=== PATIENT | male | born 1955 | race Caucasian/White ===

== ENCOUNTER 2016-11-18 06:29 | Day surgery (SDC) | payer OTHER ==
[2016-11-11 09:19] VITALS: BMI 37.7
[2016-11-18] MEDS ORDERED: ALPRAZolam 0.25 MG TAB PO PRN (06:30)
[2016-11-18] MEDS ORDERED: NITROGLYCERIN SL TABS 0.4 MG TAB SUBLINGUAL PRN (06:30)
[2016-11-18] MEDS ORDERED: SODIUM CHLORIDE 0.9% 1,000 ML in EMPTY BAG 1 BAG IV ONE (06:30)
[2016-11-18] MEDS ORDERED: ALPRAZolam 0.5 MG TAB PO PRN (06:30)
[2016-11-18] MEDS ORDERED: ASPIRIN 325 MG TAB PO STA (06:30)
[2016-11-18] MEDS ORDERED: ATORVASTATIN 80 MG TAB PO STA (06:30)
[2016-11-18 06:59] LABS: Basophils # (A) 0.1 k/uL (0-0.2); Basophils % (A) 1 %; CH 31.6; CHCM 35.5; Eosinophils # (A) 0.3 k/uL (0-0.7); Eosinophils % (A) 3 %; HCT 45.2 % (39.0-53.0); HDW 2.83; Luc # (Auto) 0.19; Luc % (Auto) 2; Lymphocytes # (A) 2.4 k/uL (1.0-4.8); Lymphocytes % (A) 22 %; MCH 31.7 pg (25.0-35.0); MCHC 35.4 g/dL (31.0-37.0); MCV 89.6 fL (80.0-100.0); Mean Platelet Volume 8.7; Monocytes # (A) 0.5 k/uL (0-1.0); Monocytes % (A) 5 %; Neutrophils # (A) 7.3 k/uL (1.3-7.7); Neutrophils % (A) 67 %; RBC 5.04 m/uL (4.30-5.90); RDW 13.5 % (11.5-15.5); WBC 10.9 k/uL (3.8-10.6)
[2016-11-18 07:10] LABS: Anion Gap 13 mmol/L; Blood Urea Nitrogen 15 mg/dL (9-20); Calcium 9.6 mg/dL (8.4-10.2); Carbon Dioxide 26 mmol/L (22-30); Chloride 103 mmol/L (98-107); Glucose 110 mg/dL (74-99); Non-African American GFR(MDRD) >60 (>60 ml/min/1.73 sqM); Potassium 4.3 mmol/L (3.5-5.1); Sodium 142 mmol/L (137-145)
[2016-11-18 07:17] VITALS: RESP 16; TEMP 98.4
[2016-11-18] MEDS ORDERED: MIDAZOLAM 2 MG/2 ML VIAL IV ONE (07:56)
[2016-11-18] MEDS ORDERED: LIDOCAINE 2% INJ 20 MG/ML SQ ONE (07:58)
[2016-11-18] MEDS ORDERED: IOHEXOL 350 MG/ML 125ML BOTTLE INJ ONE (08:15)
[2016-11-18] MEDS ORDERED: RX INFO: IV CONTRAST WAS GIVEN 1 EACH MISC MISCELLANE PRN (08:29)
[2016-11-18] MEDS ORDERED: SODIUM CHLORIDE 0.9% 1,000 ML IV SCH (08:30)
[2016-11-18] MEDS ORDERED: HYDROcodone/APAP 7.5-325MG 1 EACH TAB PO ONE (08:55)
[2016-11-18 13:50] VITALS: BP 124/79; PULSE 78
--- NOTE | 2016-11-19 05:57 | CC ---
DATE OF SERVICE: 11/18/2016 PERFORMING PHYSICIAN: Janak Hdz MD, bi data modeler. PROCEDURE PERFORMED: 1. Selective right and left coronary angiogram. 2. Left heart catheterization. 3. Left ventriculography. INDICATIONS: This is a pleasant 61-year-old gentleman who was experiencing chest discomfort. He was seen by Dr. Webster who did a myocardial perfusion imaging stress test and that showed inferior ischemia. He was brought today to undergo a heart catheterization. APPROACH: Right common femoral artery. COMPLICATIONS: None. LEVEL OF SEDATION: Moderate with sedation length of 30 minutes. PROCEDURE DESCRIPTION: After obtaining an informed consent, the patient was brought to the cardiac mine laborer. The right common femoral artery was cannulated using micropuncture technique. The micropuncture wire passed easily then I placed a 6 Polish sheath in the right common femoral artery. After that I did selective right and left coronary angiogram using JR4 and JL4 catheters. After that, I did left heart catheterization and subsequently left ventriculography using 6 Polish pigtail catheter. The procedure was completed without any complication. SELECTIVE CORONARY ANGIOGRAM: 1. The right coronary artery is a large caliber vessel and it is a dominant vessel. It is 100% occluded in the proximal portion and fills by collateral from the left coronary system. 2. The left main is calcified with a lesion in the mid shaft of the left main, appeared to be in the range of 60% to 70%. The left main bifurcates into left circumflex and left anterior descending artery. 3. The left circumflex seems to be 100% occluded in the proximal portion just after the bifurcation of the first obtuse marginal branch. The left circumflex fills from collateral from the right as well as the left coronary system. 4. The left anterior descending artery, the proximal LAD appeared to be have mild disease in the range of 30%. In the proximal portion, it gives rise into the first diagonal branch, which appeared to have mild disease only. The mid LAD and distal LAD appeared to have mild disease only. HEMODYNAMICS: The left ventricular end-diastolic pressure was 6 mmHg and no gradient was identified across the aortic valve. Left ventriculography was performed in the POON projection and using power injection and the left ventricular systolic function appeared to be normal with EF about 50%. CONCLUSION: 1. 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 It is a dominant right coronary artery. 2. Severe disease involving the left main coronary artery. 3. Chronic total occlusion of the proximal left circumflex, which fills by left as well as right collaterals. 4. Mild disease involving the left anterior descending artery. 5. Low normal left ventricular systolic function with an ejection fraction of 50%. POST PROCEDURE MANAGEMENT: 1. I will discuss with the patient the option between medical versus surgical revascularization. 2. Follow up with the patient. GRACIELA
== END 2016-11-18 14:35 | disposition home or self-care (01) ==
LOC: CATHCVL 06:29
PROVIDERS: ATTEND Internal Medicine Interventional Cardiology
DX: I25.82 Chronic total occlusion of coronary artery (principal); I25.10 Atherosclerotic heart disease of native coronary artery without angina pectoris; R94.39 Abnormal result of other cardiovascular function study; I10 Essential (primary) hypertension; E78.5 Hyperlipidemia, unspecified; I25.2 Old myocardial infarction; Z79.82 Long term (current) use of aspirin; Z79.899 Other long term (current) drug therapy; Z87.891 Personal history of nicotine dependence
CPT/HCPCS: 93458; 80048; 85025; 99152; 99153; C1894; C1769 ×2; C1760; J2001; J2250; Q9967

== ENCOUNTER → 2016-12-30 | Outpatient (CLI) | payer OTHER ==
[2016-12-30 09:26] LABS: EKG EKG PERFORMED
[2016-12-30 09:46] LABS: CH 30.9; CHCM 34.9; HCT 41.2 % (39.0-53.0); HDW 2.87; HGB 14.4 gm/dL (13.0-17.5); MCH 31.2 pg (25.0-35.0); MCHC 35.1 g/dL (31.0-37.0); Mean Platelet Volume 7.8; RBC 4.63 m/uL (4.30-5.90); RDW 12.6 % (11.5-15.5); WBC 8.3 k/uL (3.8-10.6)
[2016-12-30 09:59] LABS: Prothrombin Time 10.3 sec (9.0-12.0)
[2016-12-30 10:12] LABS: Partial Thromboplastin Time 22.3 sec (22.0-30.0)
[2016-12-30 10:38] LABS: ALT 46 U/L (21-72); AST 29 U/L (17-59); Alkaline Phosphatase 73 U/L (38-126); Anion Gap 10 mmol/L; Blood Urea Nitrogen 18 mg/dL (9-20); Calcium 8.9 mg/dL (8.4-10.2); Carbon Dioxide 28 mmol/L (22-30); Chloride 102 mmol/L (98-107); Cholesterol 139 mg/dL (<200); Glucose 170 mg/dL (74-99); HDL Cholesterol 47 mg/dL (40-60); Magnesium 1.4 mg/dL (1.6-2.3); Non-African American GFR(MDRD) >60 (>60 ml/min/1.73 sqM); Potassium 4.4 mmol/L (3.5-5.1); Sodium 140 mmol/L (137-145); Total Bilirubin 0.6 mg/dL (0.2-1.3); Total Protein 6.8 g/dL (6.3-8.2)
[2016-12-30 11:02] LABS: Appearance,Urine Cloudy (Clear); Bilirubin,Urine Negative (Negative); Glucose,Urine (UA) Negative (Negative); Ketones,Urine Negative (Negative); Leukocyte Esterase,Urine Negative (Negative); Nitrite,Urine Negative (Negative); PH, Urine 5.5 (5.0-8.0); Particle Count 2196; Protein,Urine Trace (Negative); Specific Gravity,Urine 1.018 (1.001-1.035); Squamous Epithelial Cell,Urine 1 /hpf (0-4); UA Billing (MACRO vs. MICRO) MICRO; Urobilinogen,Urine <2.0 mg/dL (<2.0); WBC,Urine 3 /hpf (0-5)
[2016-12-30 12:15] LABS: Hemoglobin A1C 6.1 % (4.2-6.1)
--- NOTE | 2016-12-30 12:18 | XR ---
EXAMINATION TYPE: XR chest 2V DATE OF EXAM: 12/30/2016 COMPARISON: NONE TECHNIQUE: PA and lateral views submitted. HISTORY: Preop FINDINGS: The lungs are clear and there is no pneumothorax, pleural effusion, or focal pneumonia. There is a 1.5 cm mass. No overt failure. Hyperinflation suggests COPD. Hypertrophic change of the spine IMPRESSION: 1. 1.5 cm left upper lobe mass.
[2016-12-30 18:15] LABS: Hepatitis B Surface Ag Index 0.05
[2016-12-30 18:20] LABS: Hepatitis B Core IgM Index 0.02
[2016-12-30 18:32] LABS: Hepatitis C Virus IgG Ab Negative (Negative); Hepatitis C Virus IgG Index 0.02
--- NOTE | 2016-12-31 10:11 | P.ARTDOP ---
Arterial Doppler Bilateral radial artery study: Reason for study: Pre-CABG Date of service: 12/30/2016 Patient is status post AV fistula on the right and therefore deferred on the right.. Left radial artery shows no significant segmental pressure gradients. On digital plethysmography with radial artery compression, there are no significant pressure changes. Size of the left radial is 2.5 x 2.5 mm distally and 2.5 x 2.4 mm proximally. Impression: Usable left radial artery.
--- NOTE | 2016-12-31 10:17 | P.VSCSTY ---
Greater Saphenous Vein Mapping This is bilateral lower extremity greater saphenous vein mapping. Date of service 12/30/2016 Vein quality and ultrasound appearance normal. Vein size groin right 3.4 x 4.0 groin left 5.5 x 5.4 High thigh right 3.7 x 4.2 high thigh left 4.4 x 3.4 Mid thigh right 3.5 x 3.9 mid thigh left 3.9 x 3.5 Above-knee right 4.1 x 3.6 above- knee left 3.6 x 3.2 Below knee right 4.3 x 3.9 below-knee left 4.4 x 3.6 Mid calf right 4.4 x 3.5 mid calf left 4.4 x 4.7 Ankle right 3.4 x 3.1 ankle left 2.9 x 2.4 Impression usable bilateral greater saphenous veins..
== END | disposition home or self-care (01) ==
LOC: LABWHC1 08:59
PROVIDERS: ATTEND Surgery
DX: Z01.818 Encounter for other preprocedural examination (principal)
CPT/HCPCS: 36415; 71020; 80053; 80061; 80074; 81001; 83036; 83735; 83880; 84443; 84484; 85027; 85610; 85730; 87070; 87086; 93005; 93922; 93970

== ENCOUNTER → 2017-01-02 | Outpatient (CLI) | payer OTHER ==
--- NOTE | 2017-01-02 12:33 | CT ---
EXAMINATION TYPE: CT chest w con DATE OF EXAM: 01/02/2017 COMPARISON: Outside CT 07/30/2015 and December 21, 2014 HISTORY: lung nodule CT DLP: 853 mGycm Automated exposure control for dose reduction was used. CONTRAST: CT scan of the chest is performed with IV Contrast, patient injected with 100 mL of Omnipaque 300. FINDINGS: LUNGS: Well-circumscribed partially calcified left upper lobe pulmonary nodules essentially unchanged in size and measures 12.4 mm x 10.8 mm versus 12.3 mm x 10.8 mm. No additional nodules are identifie d. There is no pleural effusion or pneumothorax seen. The tracheobronchial tree is patent. MEDIASTINUM: There are no greater than 1 cm hilar or mediastinal lymph nodes. No pericardial effusi on is seen. Thoracic aorta is of normal caliber. The heart is not enlarged. UPPER ABDOMEN: There is fatty hepatic infiltration identified. OTHER: No additional significant abnormality is seen. IMPRESSION: 1. Stable partially calcified nodule left upper lobe dating back to November 2014 indicating stability over a two-year timeframe.
== END ==
LOC: RADCTMAIN 11:36
PROVIDERS: ATTEND Nurse Practitioner Acute Care
DX: R91.1 Solitary pulmonary nodule (principal)
CPT/HCPCS: 71260; Q9967

== ENCOUNTER 2017-01-05 05:48 | Inpatient (IN) | payer OTHER ==
[2016-12-30 10:11] VITALS: BMI 37.3
[~2017-01-05 05:48] MED LIST: ALBUMIN HUMAN 25% 50 ML IV ONE; ALBUMIN HUMAN 5% 500 ML IVPB ONE; ASPIRIN 325 MG TAB PO ONE; ATORVASTATIN 10 MG TAB PO ONE; CALCIUM CHLORIDE 100 MG/ML 10 ML SYRINGE IV ONE; CHLORHEXIDINE GLUCONATE 15 ML CUP MUCOUS MEM ONE; CLEVIDIPINE BUTYRATE 25 MG in EMPTY BAG 1 BAG IV ONE; DEXTROSE 5% IN WATER 1,000 ML with POTASSIUM CHLORIDE 110 MEQ, MAGNESIUM SULFATE 16 MEQ... IV ONE; DEXTROSE 5% IN WATER 1,000 ML with POTASSIUM CHLORIDE 25 MEQ, SODIUM CHLORIDE 4MEQ/ML V... IV ONE; HEPARIN SODIUM 1,000 UN/ML (10ML VL) IV ONE; HEPARIN SODIUM,PORCINE 5,000 UNIT in SODIUM CHLORIDE 0.9% 500 ML IV ONE; INSULIN REGULAR 100 UNIT in SODIUM CHLORIDE 0.9% 100 ML IV ONE; LACTATED RINGERS 1,000 ML IV ONE; MAGNESIUM SULFATE MG 500 MG/ML VIAL IV ONE; MANNITOL 25% 12.5 GM/50 ML VIAL IV ONE; METOPROLOL TARTRATE 12.5 MG TAB PO ONE; MUPIROCIN 2% OINT 22 GM TUBE NASAL ONE; NITROGLYCERIN SL TABS 0.4 MG TAB SUBLINGUAL ONE; NITROGLYCERIN-D5W PMX 25 MG/250 ML BTL IV ONE; NITROGLYCERIN-D5W PMX 50 MG in DEXTROSE/WATER 1 250ML.BAG IV ONE; NOREPINEPHRIN 4 MG-0.9% NS PMX 4 MG/250 ML ML IV ONE; PAPAVERINE 360 MG in SODIUM CHLORIDE 0.9% 90 ML IV ONE; PHENYLEPHRINE 40 MG in SODIUM CHLORIDE 0.9% 250 ML IV ONE; PHENYLEPHRINE-0.9% NACL SYG 1 MG/10 ML SYRINGE IV ONE; PROPOFOL 1,000 MG/100 ML VIAL IV ONE; PROTAMINE SULFATE 10 MG/ML 25 ML VIAL IV ONE; PROTAMINE SULFATE 250 MG in EMPTY BAG 1 BAG IV ONE; SODIUM BICARB 8.4% 50 ML SYR (1 MEQ/ML) IV ONE; SODIUM CHLORIDE 0.9% 1,000 ML IV ONE; ceFAZolin 1,000 MG in SODIUM CHLORIDE 0.9% IRRIGATIO 1,000 ML IRRIGATION ONE; ceFAZolin 2,000 MG in SODIUM CHLORIDE 0.9% 30 ML IVPB ONE; ceFAZolin 3 GM in SODIUM CHLORIDE 0.9% 30 ML IVPB ONE
[2017-01-05] MEDS ORDERED: TRANEXAMIC ACID 2,000 MG in SODIUM CHLORIDE 0.9% 180 ML IV ONE (06:45)
[2017-01-05 07:22] LABS: Glucose,Whole Blood 94 mg/dL (75-99)
[2017-01-05] MEDS ORDERED: ATORVASTATIN 80 MG TAB PO ONE (07:22)
[2017-01-05] MEDS ORDERED: ROCURONIUM BROMIDE 10 MG/ML 10 ML VIAL IV ONE (08:04)
[2017-01-05] MEDS ORDERED: VECURONIUM 10 MG VIAL IV ONE (08:04)
[2017-01-05] MEDS ORDERED: SODIUM CHLORIDE 0.9% 100 ML BAG ONE (08:04)
[2017-01-05] MEDS ORDERED: ELECTROLYTE-R (PH 7.4) 1,000 ML IV.SOLN IV ONE (08:04)
[2017-01-05] MEDS ORDERED: fentaNYL (PF) 50 MCG/ML 50 ML VIAL ONE (08:04)
[2017-01-05] MEDS ORDERED: fentaNYL (PF) 50 MCG/ML 2 ML AMP ONE (08:04)
[2017-01-05] MEDS ORDERED: SODIUM CHLORIDE 0.9% IRRIG 1,000 ML BTL IRRIGATION ONE (08:04)
[2017-01-05] MEDS ORDERED: TRANEXAMIC ACID 1,000 MG/10 ML VIAL ONE (08:04)
[2017-01-05] MEDS ORDERED: PROTAMINE SULFATE 10 MG/ML 5 ML VIAL IV ONE (08:04)
[2017-01-05] MEDS ORDERED: MIDAZOLAM 2 MG/2 ML VIAL ONE (08:04)
[2017-01-05] MEDS ORDERED: PROTAMINE SULFATE 10 MG/ML 25 ML VIAL IV ONE (08:04)
[2017-01-05] MEDS ORDERED: PHENYLEPHRINE-0.9% NACL SYG 1 MG/10 ML SYRINGE ONE (08:04)
[2017-01-05] MEDS ORDERED: MAGNESIUM SULFATE 4 MEQ/ML 2 ML VIAL ONE (08:04)
[2017-01-05] MEDS ORDERED: LIDOCAINE 2% SYG (PF) 100 MG/5 ML ONE (08:04)
[2017-01-05] MEDS ORDERED: PROPOFOL 10 MG/ML 20 ML VIAL IV ONE (08:04)
[2017-01-05] MEDS ORDERED: CALCIUM CHLORIDE 100 MG/ML 10 ML SYRINGE ONE (08:04)
[2017-01-05] MEDS ORDERED: ALBUMIN HUMAN 5% 250 ML BOTTLE IVPB ONE (08:04)
[2017-01-05] MEDS ORDERED: HEPARIN SODIUM,PORCINE 10,000 UNIT/ML 1 ML VIAL ONE (08:04)
[2017-01-05 09:09] LABS: Glucose,Whole Blood 100 mg/dL (75-99)
[2017-01-05 10:20] LABS: Glucose,Whole Blood 121 mg/dL (75-99)
[2017-01-05 11:34] LABS: Glucose,Whole Blood 231 mg/dL (75-99)
[2017-01-05 12:11] LABS: Glucose,Whole Blood 225 mg/dL (75-99)
[2017-01-05 12:30] LABS: Glucose,Whole Blood 220 mg/dL (75-99)
[2017-01-05 13:05] LABS: Glucose,Whole Blood 211 mg/dL (75-99)
[2017-01-05 13:51] LABS: Glucose,Whole Blood 148 mg/dL (75-99)
[2017-01-05] MEDS ORDERED: Potassium Replacement Protocol 1 EACH MISC MISCELLANE PRN (14:37)
[2017-01-05] MEDS ORDERED: NITROGLYCERIN-D5W PMX 50 MG in DEXTROSE/WATER 1 250ML.BAG IV SCH (14:37)
[2017-01-05] MEDS ORDERED: BENZOCAINE/MENTHOL LOZENG 1 EACH LOZENGE MUCOUS MEM PRN (14:37)
[2017-01-05] MEDS ORDERED: METOCLOPRAMIDE 5 MG/ML 2 ML VIAL IVP PRN (14:37)
[2017-01-05] MEDS ORDERED: NOREPINEPHRINE 4 MG in SODIUM CHLORIDE 0.9% 250 ML IV SCH (14:37)
[2017-01-05] MEDS ORDERED: ONDANSETRON 4 MG/2 ML VIAL IVP PRN (14:37)
[2017-01-05] MEDS ORDERED: Magnesium Replacement Protocol 1 EACH MISC MISCELLANE PRN ×2 (14:37→15:49)
[2017-01-05] MEDS ORDERED: Phosphorus Replacement Protoco 1 EACH MISC MISCELLANE PRN (14:37)
[2017-01-05] MEDS ORDERED: CALCIUM GLUCONATE 2,000 MG in SODIUM CHLORIDE 0.9% 100 ML IVPB PRN (14:37)
[2017-01-05 15:07] LABS: Glucose,Whole Blood 98 mg/dL (75-99)
[2017-01-05 15:20] LABS: Ionized Calcium 4.9 mg/dL (4.5-5.3)
[2017-01-05 15:23] LABS: INR 1.2 (<1.2); Partial Thromboplastin Time 29.6 sec (22.0-30.0); Prothrombin Time 12.2 sec (9.0-12.0)
[2017-01-05 15:30] LABS: Basophils % (A) 0 %; CH 30.8; CHCM 34.9; Eosinophils # (A) 0.1 k/uL (0-0.7); Eosinophils % (A) 0 %; HCT 23.6 % (39.0-53.0); HDW 2.89; Luc # (Auto) 0.09; Luc % (Auto) 1; Lymphocytes # (A) 1.1 k/uL (1.0-4.8); Lymphocytes % (A) 8 %; MCH 31.5 pg (25.0-35.0); MCHC 35.6 g/dL (31.0-37.0); MCV 88.5 fL (80.0-100.0); Mean Platelet Volume 8.6; Monocytes # (A) 0.6 k/uL (0-1.0); Monocytes % (A) 4 %; Neutrophils # (A) 11.9 k/uL (1.3-7.7); Neutrophils % (A) 86 %; RBC 2.67 m/uL (4.30-5.90); RDW 12.8 % (11.5-15.5); WBC 13.8 k/uL (3.8-10.6); WBC (Perox) 14.07
[2017-01-05 15:31] LABS: ALT 29 U/L (21-72); AST 47 U/L (17-59); Alkaline Phosphatase 35 U/L (38-126); Anion Gap 7 mmol/L; Blood Urea Nitrogen 15 mg/dL (9-20); Calcium 7.9 mg/dL (8.4-10.2); Carbon Dioxide 28 mmol/L (22-30); Chloride 107 mmol/L (98-107); Glucose 88 mg/dL (74-99); HGB 8.4 gm/dL (13.0-17.5); Magnesium 1.9 mg/dL (1.6-2.3); Non-African American GFR(MDRD) >60 (>60 ml/min/1.73 sqM); Potassium 3.9 mmol/L (3.5-5.1); Sodium 142 mmol/L (137-145); Total Bilirubin 0.5 mg/dL (0.2-1.3); Total Protein 4.6 g/dL (6.3-8.2)
[2017-01-05 15:47] LABS: ABG Base Excess 0.5 mmol/L; ABG HCO3 27 mmol/L (21-25); ABG PCO2 64 mmHg (35-45); ABG PH 7.25 (7.35-7.45); ABG PO2 111 mmHg (83-108); ABG TCO2 29 mmol/L (19-24)
[2017-01-05 15:48] LABS: Glucose,Whole Blood 113 mg/dL (75-99)
--- NOTE | 2017-01-05 15:49 | XR ---
EXAMINATION TYPE: XR chest 1V portable DATE OF EXAM: 01/05/2017 COMPARISON: Post open heart HISTORY: 12/30/2016 TECHNIQUE: Single frontal view of the chest is obtained. FINDINGS: Postsurgical change. [place] catheter and NG tube noted. Left-sided chest tube noted. ET tube approximate 5 cm above jerica. Bilateral infiltrate and small effusion noted. Persistent mass w ithin the left upper lobe measuring 1.5 cm. Arthropathy of the shoulders noted. IMPRESSION: 1. Bilateral infiltrate and small effusion 2. Left upper lobe pulmonary mass stable 3. Postoperative change
[2017-01-05] MEDS: IPRATROPIUM-ALBUTEROL 3 ML NEB INHALATION SCH ×3 (15:57→23:32)
[2017-01-05] MEDS: CLEVIDIPINE BUTYRATE 25 MG in EMPTY BAG 1 BAG IV SCH (16:09)
[2017-01-05] MEDS: LACTATED RINGERS 1,000 ML IV SCH (16:12)
[2017-01-05] MEDS: MAGNESIUM SULFATE-D5W PMX 1 GM in DEXTROSE/WATER 1 100ML.BAG IVPB SCH ×2 (16:13→17:33)
[2017-01-05] MEDS ORDERED: POTASSIUM CHLORIDE 20 MEQ in WATER FOR INJECTION 1 100ML.BAG IVPB ONE (17:00)
[2017-01-05 17:22] LABS: Glucose,Whole Blood 161 mg/dL (75-99)
[2017-01-05] MEDS: MORPHINE SULFATE 2 MG/ML SYRINGE IVP PRN ×3 (17:33→23:43)
[2017-01-05] MEDS: ceFAZolin 3 GM in SODIUM CHLORIDE 0.9% 100 ML IVPB SCH (17:33)
[2017-01-05] MEDS: INSULIN REGULAR 100 UNIT in SODIUM CHLORIDE 0.9% 100 ML IV SCH (17:35)
[2017-01-05] MEDS: ALBUMIN HUMAN 5% 250 ML in EMPTY BAG 1 BAG IVPB PRN ×2 (17:41→18:06)
[2017-01-05 18:10] LABS: Basophils % (A) 0 %; CH 30.9; CHCM 34.9; Eosinophils # (A) 0.1 k/uL (0-0.7); Eosinophils % (A) 0 %; HCT 23.4 % (39.0-53.0); HDW 2.98; HGB 8.2 gm/dL (13.0-17.5); Luc # (Auto) 0.09; Luc % (Auto) 1; Lymphocytes # (A) 0.8 k/uL (1.0-4.8); Lymphocytes % (A) 6 %; MCHC 34.9 g/dL (31.0-37.0); MCV 89.1 fL (80.0-100.0); Mean Platelet Volume 8.2; Monocytes # (A) 0.6 k/uL (0-1.0); Monocytes % (A) 4 %; Neutrophils # (A) 13.3 k/uL (1.3-7.7); Neutrophils % (A) 89 %; RBC 2.63 m/uL (4.30-5.90); WBC 14.9 k/uL (3.8-10.6); WBC (Perox) 15.21
[2017-01-05] MEDS: ACETAMINOPHEN IV (For NPO) 1,000 MG in EMPTY BAG 1 BAG IVPB SCH (18:18)
[2017-01-05 18:25] LABS: Glucose,Whole Blood 150 mg/dL (75-99)
[2017-01-05] MEDS: PROPOFOL 1,000 MG/100 ML VIAL IV SCH ×2 (18:27→22:45)
[2017-01-05 19:09] LABS: Glucose,Whole Blood 150 mg/dL (75-99)
--- NOTE | 2017-01-05 19:25 | P.CONS ---
History of Present Illness - Reason for Consult Consult date: 01/05/17 Medical management Requesting physician: Neal Bailey - Chief Complaint Post three-vessel CABG, CAD, hypertension, hyperlipidemia, BPH - History of Present Illness 61-year-old for BP obese male one of Dr. Webster's patient with past medical history of hypertension, hyperlipidemia, who had NM obstructive sleep apnea had history of colitis post ileostomy with large bowel and rectum removal in the past. Patient had apparently recurrent history of angina and chest pain had heart catheter with Dr. Hdz back in October and was diagnosed with advanced three- vessel coronary artery disease. Patient was seen cardiothoracic and plan for elective surgery he ended up going to the OR today and had a three-vessel bypass surgery. Was placed on mechanical ventilation had 2 chest tube and end up been admitted to the ICU on mechanical ventilation on conscious sedation but hemodynamically stable. Still on insulin drip 3 unit an hour for now 1 blood sugar has been holding well. Review of Systems ROS unobtainable: due to endotracheal tube Past Medical History Past Medical History: Chest Pain / Angina, GERD/Reflux, Hyperlipidemia, Hypertension, Myocardial Infarction (NM), Prostate Disorder Additional Past Medical History / Comment(s): SOB with activity-relieved with rest,states "my gallbladder isn't working quite right, I have had a lot of surgeries in the past and I have some scar tissue.",enlarged prostate, ulcerative colitis-has ileostomy,kidney stones, long ago hx. of dialysis for 5 days due to elevated potassium per pt. Last Myocardial Infarction Date:: unk History of Any Multi-Drug Resistant Organisms: None Reported Past Surgical History: Bowel Resection, Heart Catheterization, Hernia Repair Additional Past Surgical History / Comment(s): ileostomy with large bowel and rectum removed,lt hernia repair x 5 or 6,lithotripsy Past Anesthesia/Blood Transfusion Reactions: No Reported Reaction Additional Past Anesthesia/Blood Transfusion Reaction / Comm: no problems with prior blood transfusions Smoking Status: Former smoker - Past Family History Mother Family Medical History: Deep Vein Thrombosis (DVT) Additional Family Medical History / Comment(s): at age 92 Father Family Medical History: Myocardial Infarction (NM) Additional Family Medical History / Comment(s): at age 55 Medications and Allergies Home Medications Medication Instructions Recorded Confirmed Type Aspirin 81 mg PO DAILY 11/11/16 01/05/17 History Cholecalciferol (Vitamin D3) 2,000 unit PO DAILY 11/11/16 01/05/17 History [Vitamin D3] Finasteride [Proscar] 5 mg PO DAILY 11/11/16 01/05/17 History Fluticasone Nasal [place] [Flonase 2 spray EA NOSTRIL DAILY 11/11/16 01/05/17 History Nasal [place]] Hydrochlorothiazide 25 mg PO DAILY 11/11/16 01/05/17 History Losartan Potassium 100 mg PO DAILY 11/11/16 01/05/17 History Magnesium Oxide [Mag-Ox] 400 mg PO DAILY 11/11/16 01/05/17 History Metoclopramide HCl [Reglan] 10 mg PO BID 11/11/16 01/05/17 History Metoprolol Tartrate [Lopressor] 25 mg PO BID 11/11/16 01/05/17 History Montelukast [Singulair] 10 mg PO HS 11/11/16 01/05/17 History Multivit-Min/FA/Lycopen/Lutein 1 tab PO DAILY 11/11/16 01/05/17 History [Centrum Silver Men Tablet] Omeprazole [PriLOSEC] 20 mg PO DAILY 11/11/16 01/05/17 History Mupirocin 2% Nasal Oint [Bactroban 1 applic NASAL BID 01/02/17 01/05/17 History 2% Nasal Oint] Atorvastatin [Lipitor] 80 mg PO HS 01/05/17 01/05/17 History Allergies Allergy/AdvReac Type Severity Reaction Status Date / Time No Known Allergies Allergy Verified 01/05/17 14:17 Physical Exam Vitals: Vital Signs Temp Pulse Pulse Resp BP BP Pulse Ox 01/05/17 18:10 86 99 01/05/17 18:00 90 98 01/05/17 17:50 87 99 01/05/17 17:40 86 99 01/05/17 17:30 95 28 H 96 01/05/17 17:20 80 99 01/05/17 17:10 78 100 01/05/17 17:00 77 100 01/05/17 16:50 81 99 01/05/17 16:40 78 99 01/05/17 16:30 75 99 01/05/17 16:20 74 98 01/05/17 16:10 77 26 H 99 01/05/17 16:08 77 01/05/17 16:00 82 69 20 98 01/05/17 15:58 84 01/05/17 15:50 84 99 01/05/17 15:40 97 92 L 01/05/17 15:30 85 22 98 01/05/17 15:20 83 100 01/05/17 15:10 80 93 L 01/05/17 07:09 97.7 F 69 20 139/82 142/93 96 01/05/17 06:56 97.7 F 69 20 139/82 142/93 96 Intake and Output 01/05/17 01/05/17 01/05/17 06:59 14:59 22:59 Intake Total 63 944.62 Output Total 1935 799 Balance -1872 145.62 Intake: IV 63 875 Albumin Human 5% 250 ml 500 In Empty Bag 1 bag @ 250 mls/hr IVPB Q1HR PRN Rx#: [id number] CO/CI 180 Lactated Ringers 1,000 ml 150 @ 50 mls/hr IV .Q20H SHUN Rx#:[id number] PRESSURE BAG 45 Intake, IV Titration 69.62 Amount Insulin Regular 100 unit 3.75 In Sodium Chloride 0.9% 100 ml @ Per Protocol IV .Q0M SHUN Rx#:[id number] Lactated Ringers 1,000 ml 50 @ 50 mls/hr IV .Q20H SHUN Rx#:[id number] Propofol 1,000 mg In 100 15.87 ml @ Titrate IV .Q0M SHUN Rx#:[id number] Output: Chest Tube Drainage 35 319 Chest Tube Left Lateral 97 Chest Chest Tube Mediastinal 35 222 Urine 700 480 Estimated Blood Loss 1200 Other: Voiding Method Indwelling Catheter Indwelling Catheter # Bowel Movements 0 0 Weight 123.5 kg ABP, PAP, CO, CI - Last 8 Hours Arterial Blood Pressure 107/52 Arterial Blood Pressure 109/52 Arterial Blood Pressure 103/49 Arterial Blood Pressure 108/53 Arterial Blood Pressure 103/49 Arterial Blood Pressure 105/49 Arterial Blood Pressure 124/55 Arterial Blood Pressure 116/55 Arterial Blood Pressure 88/40 Arterial Blood Pressure 96/43 Arterial Blood Pressure 107/46 Arterial Blood Pressure 124/53 Arterial Blood Pressure 138/57 Arterial Blood Pressure 115/55 Arterial Blood Pressure 133/56 Arterial Blood Pressure 135/58 Arterial Blood Pressure 126/50 Arterial Blood Pressure 133/53 Pulmonary Artery Pressure 33/18 Pulmonary Artery Pressure 34/18 Pulmonary Artery Pressure 32/18 Pulmonary Artery Pressure 30/16 Pulmonary Artery Pressure 34/16 Pulmonary Artery Pressure 33/18 Pulmonary Artery Pressure 33/18 Pulmonary Artery Pressure 33/18 Pulmonary Artery Pressure 33/19 Pulmonary Artery Pressure 34/20 Pulmonary Artery Pressure 30/18 Pulmonary Artery Pressure 29/18 Pulmonary Artery Pressure 30/17 Pulmonary Artery Pressure 31/18 Pulmonary Artery Pressure 33/18 Pulmonary Artery Pressure 34/18 Pulmonary Artery Pressure 31/15 Pulmonary Artery Pressure 34/18 Pulmonary Artery Pressure 28/12 Pulmonary Artery Pressure 322/322 Cardiac Output 5.7 Cardiac Output 5.7 Cardiac Output 5.7 Cardiac Output 5.7 Cardiac Output 5.7 Cardiac Output 7.7 Cardiac Output 7.7 Cardiac Output 7.7 Cardiac Output 7.7 Cardiac Output 7.7 Cardiac Output 7.7 Cardiac Output 7.7 Cardiac Output 8 Cardiac Output 8 Cardiac Output 8 Cardiac Output 7.2 Cardiac Output 7.2 Cardiac Index 2.3 Cardiac Index 2.3 Cardiac Index 3.2 Cardiac Index 3.3 Cardiac Index 2.9 - Constitutional On mechanical ventilation. General appearance: no average body habitus, no cooperative, no disheveled, no mild distress, morbidly obese, no no acute distress, no obese, no severe distress, no thin - EENT Eyes: abnormal pupil, no anicteric sclerae, no disc margins sharp, no edentulous , no EOMI, no PERRLA, no fundus normal, no photophobia, no dentition normal, no poor dentition, no ptosis, no scleral icterus, normal appearance ENT: no hard of hearing, no hearing grossly normal, no NA/AT, no normal oropharynx, no other, no pharyngeal erythema, no thrush, no tonsillar exudates, no tonsillar swelling - Neck Neck: no lymphadenopathy, normal ROM, no other, no rigidity, no stridor, no thyromegaly Carotids: bilateral: upstroke normal Thyroid: bilateral: normal size - Respiratory Respiratory: left: diminished, dullness, rales, rhonchi - Cardiovascular Rhythm: regular Heart sounds: normal: S1, S2 Abnormal Heart Sounds: systolic murmur - Gastrointestinal General gastrointestinal: no absent bowel sounds, no decreased bowel sounds, distended, no hepatomegaly, no hyperactive bowel sounds, normal bowel sounds, no organomegaly, no rigid, no scaphoid, soft, no splenomegaly, no tenderness, no umbilical hernia, no ventral hernia - Integumentary Integumentary: normal, pale, rash - Neurologic Sedated currently. - Musculoskeletal Musculoskeletal: generalized weakness - Psychiatric Patient is sedated. Results CBC & Chem 7: 01/05/17 18:00 01/05/17 15:05 Labs: Abnormal Lab Results - Last 24 Hours (Table) 12/30/16 01/05/17 01/05/17 Range/Units 09:20 09:05 10:16 WBC (3.8-10.6) k/uL RBC (4.30-5.90) m/uL Hgb (13.0-17.5) gm/dL Hct (39.0-53.0) % Plt Count (150-450) k/uL Neutrophils # (1.3-7.7) k/uL Lymphocytes # (1.0-4.8) k/uL PT (9.0-12.0) sec INR (<1.2) ABG pH (7.35-7.45) ABG pCO2 (35-45) mmHg ABG pO2 (83-108) mmHg ABG HCO3 (21-25) mmol/L ABG Total CO2 (19-24) mmol/L POC Glucose (mg/dL) 100 H 121 H (75-99) mg/dL Calcium (8.4-10.2) mg/dL Alkaline Phosphatase (38-126) U/L Total Protein (6.3-8.2) g/dL Albumin (3.5-5.0) g/dL Crossmatch See Detail 01/05/17 01/05/17 01/05/17 Range/Units 11:31 11:57 12:26 WBC (3.8-10.6) k/uL RBC (4.30-5.90) m/uL Hgb (13.0-17.5) gm/dL Hct (39.0-53.0) % Plt Count (150-450) k/uL Neutrophils # (1.3-7.7) k/uL Lymphocytes # (1.0-4.8) k/uL PT (9.0-12.0) sec INR (<1.2) ABG pH (7.35-7.45) ABG pCO2 (35-45) mmHg ABG pO2 (83-108) mmHg ABG HCO3 (21-25) mmol/L ABG Total CO2 (19-24) mmol/L POC Glucose (mg/dL) 231 H 225 H 220 H (75-99) mg/dL Calcium (8.4-10.2) mg/dL Alkaline Phosphatase (38-126) U/L Total Protein (6.3-8.2) g/dL Albumin (3.5-5.0) g/dL Crossmatch 01/05/17 01/05/17 01/05/17 Range/Units 13:01 13:48 15:05 WBC 13.8 H (3.8-10.6) k/uL RBC 2.67 L (4.30-5.90) m/uL Hgb 8.4 L D (13.0-17.5) gm/dL Hct 23.6 L (39.0-53.0) % Plt Count 112 L (150-450) k/uL Neutrophils # 11.9 H (1.3-7.7) k/uL Lymphocytes # (1.0-4.8) k/uL PT (9.0-12.0) sec INR (<1.2) ABG pH (7.35-7.45) ABG pCO2 (35-45) mmHg ABG pO2 (83-108) mmHg ABG HCO3 (21-25) mmol/L ABG Total CO2 (19-24) mmol/L POC Glucose (mg/dL) 211 H 148 H (75-99) mg/dL Calcium (8.4-10.2) mg/dL Alkaline Phosphatase (38-126) U/L Total Protein (6.3-8.2) g/dL Albumin (3.5-5.0) g/dL Crossmatch 01/05/17 01/05/17 01/05/17 Range/Units 15:05 15:05 15:32 WBC (3.8-10.6) k/uL RBC (4.30-5.90) m/uL Hgb (13.0-17.5) gm/dL Hct (39.0-53.0) % Plt Count (150-450) k/uL Neutrophils # (1.3-7.7) k/uL Lymphocytes # (1.0-4.8) k/uL PT 12.2 H (9.0-12.0) sec INR 1.2 H (<1.2) ABG pH 7.25 L (7.35-7.45) ABG pCO2 64 H (35-45) mmHg ABG pO2 111 H (83-108) mmHg ABG HCO3 27 H (21-25) mmol/L ABG Total CO2 29 H (19-24) mmol/L POC Glucose (mg/dL) (75-99) mg/dL Calcium 7.9 L (8.4-10.2) mg/dL Alkaline Phosphatase 35 L (38-126) U/L Total Protein 4.6 L (6.3-8.2) g/dL Albumin 3.1 L (3.5-5.0) g/dL Crossmatch 01/05/17 01/05/17 01/05/17 Range/Units 15:46 17:01 18:00 WBC 14.9 H (3.8-10.6) k/uL RBC 2.63 L (4.30-5.90) m/uL Hgb 8.2 L (13.0-17.5) gm/dL Hct 23.4 L (39.0-53.0) % Plt Count 147 L (150-450) k/uL Neutrophils # 13.3 H (1.3-7.7) k/uL Lymphocytes # 0.8 L (1.0-4.8) k/uL PT (9.0-12.0) sec INR (<1.2) ABG pH (7.35-7.45) ABG pCO2 (35-45) mmHg ABG pO2 (83-108) mmHg ABG HCO3 (21-25) mmol/L ABG Total CO2 (19-24) mmol/L POC Glucose (mg/dL) 113 H 161 H (75-99) mg/dL Calcium (8.4-10.2) mg/dL Alkaline Phosphatase (38-126) U/L Total Protein (6.3-8.2) g/dL Albumin (3.5-5.0) g/dL Crossmatch 01/05/17 01/05/17 Range/Units 18:04 19:01 WBC (3.8-10.6) k/uL RBC (4.30-5.90) m/uL Hgb (13.0-17.5) gm/dL Hct (39.0-53.0) % Plt Count (150-450) k/uL Neutrophils # (1.3-7.7) k/uL Lymphocytes # (1.0-4.8) k/uL PT (9.0-12.0) sec INR (<1.2) ABG pH (7.35-7.45) ABG pCO2 (35-45) mmHg ABG pO2 (83-108) mmHg ABG HCO3 (21-25) mmol/L ABG Total CO2 (19-24) mmol/L POC Glucose (mg/dL) 150 H 150 H (75-99) mg/dL Calcium (8.4-10.2) mg/dL Alkaline Phosphatase (38-126) U/L Total Protein (6.3-8.2) g/dL Albumin (3.5-5.0) g/dL Crossmatch Assessment and Plan Plan: 1 CAD post three-vessel CABG: Stable post surgery continue to watch patient hemodynamic status is still on mechanical ventilation currently which been managed by pulmonary critical care. Still on insulin drip which will watch for any further hyperglycemia the time. 2 acute postsurgical respiratory failure as an expected procedure post open heart surgery continue to manage sent by pulmonary critical care. 3 hypertension: We will Resume home meds when patient is more stable and off the vent. 4 arrhythmia stable no A. fib post surgery. 5 hyperglycemia: Continue patient on insulin drip for now. 6 COPD: Continue patient on DuoNeb. 7 hyperlipidemia: Resume Lipitor at 40 mg daily. 8 BPH: Watch for any urinary retention after surgery patient still have Adhikari catheter for now. 9 gastroparesis: Has been on Reglan and PPI resume both medication one patient is able to take oral. CODE STATUS: Full code. Dr. Bailey thank you very much for the consult psych can be any further help to please let me know.
[2017-01-05 19:57] LABS: Glucose,Whole Blood 145 mg/dL (75-99)
[2017-01-05 20:52] LABS: Glucose,Whole Blood 151 mg/dL (75-99)
[2017-01-05] MEDS: MUPIROCIN 2% OINT 22 GM TUBE NASAL SCH (21:02)
[2017-01-05 21:09] LABS: Ionized Calcium 4.6 mg/dL (4.5-5.3)
[2017-01-05 21:19] LABS: Basophils % (A) 0 %; CHCM 35.1; Eosinophils % (A) 0 %; HCT 20.6 % (39.0-53.0); HDW 2.95; HGB 7.2 gm/dL (13.0-17.5); Luc # (Auto) 0.08; Luc % (Auto) 1; Lymphocytes # (A) 0.5 k/uL (1.0-4.8); Lymphocytes % (A) 5 %; MCH 31.1 pg (25.0-35.0); MCV 88.8 fL (80.0-100.0); Mean Platelet Volume 9.2; Monocytes # (A) 0.5 k/uL (0-1.0); Monocytes % (A) 5 %; Neutrophils # (A) 9.7 k/uL (1.3-7.7); Neutrophils % (A) 90 %; RBC 2.31 m/uL (4.30-5.90); WBC 10.8 k/uL (3.8-10.6)
[2017-01-05 21:25] LABS: ALT 32 U/L (21-72); AST 46 U/L (17-59); Alkaline Phosphatase 32 U/L (38-126); Anion Gap 10 mmol/L; Blood Urea Nitrogen 14 mg/dL (9-20); Carbon Dioxide 23 mmol/L (22-30); Chloride 106 mmol/L (98-107); Glucose 136 mg/dL (74-99); Non-African American GFR(MDRD) >60 (>60 ml/min/1.73 sqM); Potassium 4.4 mmol/L (3.5-5.1); Sodium 139 mmol/L (137-145); Total Bilirubin 0.7 mg/dL (0.2-1.3); Total Protein 4.8 g/dL (6.3-8.2)
[2017-01-05 21:53] LABS: Glucose,Whole Blood 152 mg/dL (75-99)
[2017-01-05 22:01] LABS: ABG HCO3 21 mmol/L (21-25); ABG PCO2 31 mmHg (35-45); ABG PH 7.45 (7.35-7.45); ABG PO2 78 mmHg (83-108)
[2017-01-05 22:02] LABS: ABG Base Excess -2.2 mmol/L; ABG TCO2 22 mmol/L (19-24)
--- NOTE | 2017-01-05 22:25 | OP ---
OPERATIVE REPORT DATE OF SURGERY: 01/05/2017 PREOPERATIVE DIAGNOSIS: Coronary artery disease. POSTOPERATIVE DIAGNOSIS: Coronary artery disease. PROCEDURE: 1. Coronary bypass grafting x3 vessels (left internal mammary artery to left anterior descending, saphenous vein graft to obtuse marginal artery, saphenous vein graft to posterior descending artery). 2. Endoscopic vein harvest, bilateral greater saphenous veins. 3. Epiaortic ultrasound. 4. Transesophageal echocardiogram. 5. Closure of sternum using [place] cable system. SURGEON: Neal Bailey M.D. ASSISTANTS: 1. Tramaine Bar, nurse practitioner. 2. JAZMYN Martinez. 3. GREG Monahan. ANESTHESIA: General. SPECIMENS: None. COMPLICATIONS: None. INDICATIONS: The patient is a 61-year-old male with a history of multiple medical problems, including hypertension, hyperlipidemia, ulcerative colitis, subtotal colectomy with ileostomy, and obesity. He was found to have coronary artery disease. Coronary artery bypass was recommended. The risks, benefits and alternatives to this procedure were discussed with the patient. All questions were answered. Consent was obtained. FINDINGS: The left internal mammary artery was a good-caliber vessel. Saphenous vein was an adequate conduit. The LAD contained diffuse disease and measured 1.3 mm. The PDA measured 1.3 mm. The obtuse marginal artery was a small vessel that measured 1.0 mm. PROCEDURE IN DETAIL: The patient was taken to the operating room, placed supine on the operating table. After induction of general anesthesia, he was prepped and draped in the usual sterile fashion. Preoperative transesophageal echocardiogram revealed a preserved ejection fraction with no significant valvular pathology. A median sternotomy was performed. The left internal mammary artery was harvested in standard fashion, taking care to clip all branches. Intravenous heparin was administered and the vessel was transected distally, revealing brisk flow. Simultaneously greater saphenous vein was harvested from the right lower extremity. Below the knee the vein was small and not usable. For this reason, additional vein was harvested from the left thigh using endoscopic technique. All branches were tied. A pericardial cradle was created. The ascending aorta was palpated. There was no significant calcific disease noted. The aorta itself was quite soft. Epiaortic ultrasound was also performed. It confirmed the absence of calcific or atheromatous disease. An arterial cannula was placed through the distal ascending aorta. A venous cannula was placed through the right atrial appendage and directed into the IVC. Both antegrade and retrograde catheters were placed as well. The patient was then placed on cardiopulmonary bypass with decompression of the heart. The aortic crossclamp was applied. Cold blood potassium cardioplegia was delivered in both antegrade retrograde fashion to achieve arrest of the heart. Of note, cardioplegia was delivered every 15- 20 minutes while the patient remained under crossclamp. We began with inspection of the inferior wall. The distal right coronary artery was identified. It was calcified and contained significant disease. The posterior descending artery was then identified. At the takeoff it was soft and amenable to bypass. It was a smaller vessel but accepted a 1 mm probe. Using saphenous vein in a reverse fashion, an end-to-side anastomosis was created. This was performed using a running 7-0 plain suture. The graft was hemostatic and had adequate flow. Next the lateral wall was identified. Multiple OM branches were visualized. These branches were all small in diameter. I did choose one and was able to dissect it free as proximally as possible. It was still quite small, but I felt it could accept a bypass. A small arteriotomy was created. This also accepted a 1 mm probe. Using saphenous vein in a reverse fashion, end-to-side anastomosis was created. This was performed using running 7-0 Prolene suture. The graft had adequate flow. Next the LAD was identified. It contained diffuse disease throughout its course. A spot amenable to bypass was noted in its midsection. An arteriotomy was created. This also accepted a 1.0 mm probe. Of note, palpable calcific disease was noted throughout its course, including distally. Using the left internal mammary artery, an end-to-side anastomosis was created. This was performed with a running 8-0 Prolene suture. The graft was hemostatic. The mammary pedicle was then tacked down to the anterior surface of the heart. Attention was then turned to the proximal anastomoses. These were performed in an end- to-side fashion using running 6-0 Prolene sutures. One liter of warm blood was delivered in a retrograde fashion. Lidocaine and magnesium were administered as well. The aortic crossclamp was removed. The grafts were de-aired in standard fashion. Distal anastomoses were inspected and appeared to be hemostatic. The retrograde catheter was removed. Temporary atrial and ventricular pacing wires were placed and brought through the skin. The patient was then weaned off cardiopulmonary bypass. He with the addition of some Levophed. Follow-up transesophageal echocardiogram revealed preserved ejection fraction with no significant valvular pathology. Protamine was administered. There were no adverse reactions. All remaining cannulas were then removed. I felt the patient did have a large amount of fat in the chest, and a fair amount of time was taken to ensure hemostasis. Soft tissue was then reapproximated over the ascending aorta as well as of the apex of the heart. A straight 32 Lao chest tube was placed directly in the left pleural space. Two additional straight 32 Lao chest tubes were placed directly in the mediastinum. These were all secured to the skin. Due to the patient's morbid obesity, I elected to close the sternum using the [place] cable system. These were placed in a [id number] fashion and tightened down. At the end of this procedure the sternum had a good closure. The remainder of the wound was then closed in layers. A sterile dressing was applied. The patient appeared to tolerate the procedure well. There were no immediate complications. He was returned to the ICU in critical but stable condition. VLADIMIR / IJN: [id number] / GRACIELA
[2017-01-05 23:18] LABS: Glucose,Whole Blood 141 mg/dL (75-99)
[2017-01-05] MEDS: HEPARIN SODIUM,PORCINE 5,000 UNIT/ML 1 ML VIAL SQ SCH (23:43)
[2017-01-05 23:58] LABS: Glucose,Whole Blood 156 mg/dL (75-99)
[2017-01-06] MEDS: ACETAMINOPHEN IV (For NPO) 1,000 MG in EMPTY BAG 1 BAG IVPB SCH ×4 (00:08→18:24)
[2017-01-06 00:58] LABS: Glucose,Whole Blood 144 mg/dL (75-99)
[2017-01-06] MEDS: ceFAZolin 3 GM in SODIUM CHLORIDE 0.9% 100 ML IVPB SCH ×3 (01:01→18:24)
[2017-01-06 02:05] LABS: Glucose,Whole Blood 139 mg/dL (75-99)
[2017-01-06] MEDS: PROPOFOL 1,000 MG/100 ML VIAL IV SCH ×2 (02:36→08:02)
[2017-01-06 03:03] LABS: Glucose,Whole Blood 145 mg/dL (75-99)
[2017-01-06] MEDS: IPRATROPIUM-ALBUTEROL 3 ML NEB INHALATION SCH ×4 (03:16→15:21)
[2017-01-06 03:55] LABS: Glucose,Whole Blood 135 mg/dL (75-99)
[2017-01-06 04:09] LABS: INR 1.1 (<1.2)
[2017-01-06 04:12] LABS: Basophils % (A) 0 %; CH 31.6; CHCM 35.7; Eosinophils % (A) 0 %; HDW 2.86; Luc # (Auto) 0.09; Luc % (Auto) 1; Lymphocytes # (A) 0.9 k/uL (1.0-4.8); Lymphocytes % (A) 9 %; MCH 31.2 pg (25.0-35.0); Mean Platelet Volume 10.2; Monocytes # (A) 0.5 k/uL (0-1.0); Monocytes % (A) 5 %; Neutrophils # (A) 8.8 k/uL (1.3-7.7); Neutrophils % (A) 86 %; RBC 2.18 m/uL (4.30-5.90); RDW 13.6 % (11.5-15.5); WBC 10.3 k/uL (3.8-10.6); WBC (Perox) 10.86
[2017-01-06 04:13] LABS: Ionized Calcium 4.7 mg/dL (4.5-5.3)
[2017-01-06 04:22] LABS: ALT 31 U/L (21-72); AST 45 U/L (17-59); Alkaline Phosphatase 31 U/L (38-126); Anion Gap 9 mmol/L; Blood Urea Nitrogen 18 mg/dL (9-20); Carbon Dioxide 23 mmol/L (22-30); Chloride 106 mmol/L (98-107); Glucose 125 mg/dL (74-99); Magnesium 1.9 mg/dL (1.6-2.3); Non-African American GFR(MDRD) >60 (>60 ml/min/1.73 sqM); Potassium 4.3 mmol/L (3.5-5.1); Sodium 138 mmol/L (137-145); Total Bilirubin 0.4 mg/dL (0.2-1.3); Total Protein 4.8 g/dL (6.3-8.2)
[2017-01-06 04:25] LABS: HCT 19.4 % (39.0-53.0); HGB 6.8 gm/dL (13.0-17.5)
[2017-01-06] MEDS ORDERED: Magnesium Replacement Protocol 1 EACH MISC MISCELLANE PRN (04:27)
[2017-01-06 04:56] LABS: Glucose,Whole Blood 138 mg/dL (75-99)
[2017-01-06] MEDS: MAGNESIUM SULFATE-D5W PMX 1 GM in DEXTROSE/WATER 1 100ML.BAG IVPB SCH ×2 (05:20→06:33)
[2017-01-06 06:13] LABS: Glucose,Whole Blood 153 mg/dL (75-99)
[2017-01-06] MEDS: INSULIN REGULAR 100 UNIT in SODIUM CHLORIDE 0.9% 100 ML IV SCH (06:46)
[2017-01-06 06:51] LABS: Glucose,Whole Blood 145 mg/dL (75-99)
[2017-01-06 08:12] LABS: Glucose,Whole Blood 152 mg/dL (75-99)
[2017-01-06] MEDS: HEPARIN SODIUM,PORCINE 5,000 UNIT/ML 1 ML VIAL SQ SCH ×2 (08:21→16:16)
[2017-01-06] MEDS: METOPROLOL TARTRATE 12.5 MG TAB PO SCH ×2 (08:21→21:20)
[2017-01-06] MEDS: ASPIRIN 325 MG TAB PO SCH (08:21)
[2017-01-06] MEDS: ATORVASTATIN 40 MG TAB PO SCH (08:21)
[2017-01-06] MEDS: PANTOPRAZOLE 40 MG/10 ML VIAL IVP SCH (08:21)
[2017-01-06] MEDS: CLOPIDOGREL 75 MG TAB PO SCH (08:21)
[2017-01-06] MEDS: MUPIROCIN 2% OINT 22 GM TUBE NASAL SCH ×2 (08:22→21:20)
[2017-01-06] MEDS: FINASTERIDE 5 MG TAB PO SCH (08:23)
[2017-01-06 08:39] LABS: ABG Base Excess -3.2 mmol/L; ABG HCO3 20 mmol/L (21-25); ABG PCO2 28 mmHg (35-45); ABG PH 7.46 (7.35-7.45); ABG PO2 71 mmHg (83-108); ABG TCO2 21 mmol/L (19-24)
[2017-01-06 09:14] LABS: Glucose,Whole Blood 143 mg/dL (75-99)
[2017-01-06 10:10] LABS: Glucose,Whole Blood 139 mg/dL (75-99)
--- NOTE | 2017-01-06 10:46 | P.PN ---
<Claudia Acuna - Last Filed: 01/06/17 10:46> Subjective Principal diagnosis: Coronary artery disease. Hypertension. Hyperlipidemia. History of myocardial infarction. History of BPH. History of ulcerative colitis with an ileostomy. Distant history of dialysis for 5 days secondary to elevated potassium. Previous tobacco dependence. Family history of myocardial infarction at a young age. COPD. History of gastroparesis. Obesity. POD #1 elective coronary artery bypass grafting 3 vessels, left internal mammary artery to left anterior descending artery, reverse saphenous vein graft to the obtuse marginal artery, reverse saphenous vein graft to the posterior descending artery. Endoscopic vein harvest, bilateral greater saphenous veins. Epi-aortic ultrasound. Intraoperative transesophageal echocardiogram. Closure of sternum using titanium cable system. Patient remains sedated on mechanical ventilation. Was unable to wean to extubate last night secondary to no cough leak. Objective - Vital Signs Vital signs: Vital Signs Temp 97.7 F 01/05/17 07:09 Pulse 106 H 01/06/17 07:45 Resp 27 H 01/06/17 06:30 BP 101/61 01/06/17 05:30 Pulse Ox 93 L 01/06/17 06:30 Intake & Output 01/05/17 01/06/17 01/06/17 18:59 06:59 18:59 Intake Total 1001.85 900.044 100 Output Total 2734 1004 Balance -1732.15 -103.956 100 Weight 129.6 kg Intake: IV 938 788 Albumin Human 5% 250 ml 500 In Empty Bag 1 bag @ 250 mls/hr IVPB Q1HR PRN Rx#: [id number] CO/CI 180 80 Lactated Ringers 1,000 ml 150 600 @ 50 mls/hr IV .Q20H SHUN Rx#:[id number] PRESSURE BAG 45 108 Intake, IV Titration 63.85 112.044 100 Amount Insulin Regular 100 unit 2.55 50.417 In Sodium Chloride 0.9% 100 ml @ Per Protocol IV .Q0M SHUN Rx#:[id number] Lactated Ringers 1,000 ml 50 @ 50 mls/hr IV .Q20H SHUN Rx#:[id number] Propofol 1,000 mg In 100 11.3 61.627 100 ml @ Titrate IV .Q0M SHUN Rx#:[id number] Output: Chest Tube Drainage 354 301 Chest Tube Left Lateral 97 45 Chest Chest Tube Mediastinal 257 256 Drainage 50 Right Lower Calf 50 Urine 1180 653 Estimated Blood Loss 1200 Other: Voiding Method Indwelling Catheter Indwelling Catheter # Bowel Movements 0 ABP, PAP, CO, CI - Last Documented Arterial Blood Pressure 110/57 Pulmonary Artery Pressure 29/17 Cardiac Output 5.9 Cardiac Index 2.4 - Constitutional General appearance: Present: no acute distress, obese - Respiratory Details: Lungs sounds diminished bilaterally. Respirations even, nonlabored on mechanical ventilation. Current settings assist control mode, FiO2 40%, tidal volume 550, respiratory rate 20, PEEP 5. Left pleural chest tube to -20 cm wall suction, drained 14 mL serosanguineous drainage overnight, 120 mL since surgery. Mediastinal chest tubes to -20 cm wall suction, drained 106 mL serosanguineous drainage overnight, 500 mL since surgery. No air leaks present. - Cardiovascular Details: S1, S2 present. Regular rate and rhythm, sinus tach on telemetry. Sternum stable. A/V epicardial pacemaker wires present, connected to generator, VVI mode with backup rate 50 bpm. Left internal jugular Cordis, [place]-Annita catheter , left radial arterial line present. No edema present. Palpable pulses bilaterally. Heart hugger, teds, SCDs present. - Gastrointestinal Gastrointestinal Comment(s): Abdomen soft, nontender, nondistended. Hypoactive bowel sounds present. Ileostomy present to right lower quadrant. OG tube present to low intermittent suction. - Genitourinary Genitourinary Comment(s): Adhikari present draining clear, yellow urine. Output 23-85 mL/h overnight. - Integumentary Integumentary Comment(s): Anterior chest incision well approximated, dry intact dressing. Bilateral lower extremity EVH sites well approximated, PORFIRIO drains present. - Psychiatric Psychiatric Comment(s): Sedated on mechanical ventilation. - Allied health notes Allied health notes reviewed: nursing - Labs CBC & Chem 7: 01/06/17 03:45 01/06/17 03:45 Labs: Abnormal Lab Results - Last 24 Hours (Table) 12/30/16 01/05/17 01/05/17 Range/Units 09:20 09:05 10:16 WBC (3.8-10.6) k/uL RBC (4.30-5.90) m/uL Hgb (13.0-17.5) gm/dL Hct (39.0-53.0) % Plt Count (150-450) k/uL Neutrophils # (1.3-7.7) k/uL Lymphocytes # (1.0-4.8) k/uL PT (9.0-12.0) sec INR (<1.2) ABG pH (7.35-7.45) ABG pCO2 (35-45) mmHg ABG pO2 (83-108) mmHg ABG HCO3 (21-25) mmol/L ABG Total CO2 (19-24) mmol/L Glucose (74-99) mg/dL POC Glucose (mg/dL) 100 H 121 H (75-99) mg/dL Calcium (8.4-10.2) mg/dL Alkaline Phosphatase (38-126) U/L Total Protein (6.3-8.2) g/dL Albumin (3.5-5.0) g/dL Crossmatch See Detail 01/05/17 01/05/17 01/05/17 Range/Units 11:31 11:57 12:26 WBC (3.8-10.6) k/uL RBC (4.30-5.90) m/uL Hgb (13.0-17.5) gm/dL Hct (39.0-53.0) % Plt Count (150-450) k/uL Neutrophils # (1.3-7.7) k/uL Lymphocytes # (1.0-4.8) k/uL PT (9.0-12.0) sec INR (<1.2) ABG pH (7.35-7.45) ABG pCO2 (35-45) mmHg ABG pO2 (83-108) mmHg ABG HCO3 (21-25) mmol/L ABG Total CO2 (19-24) mmol/L Glucose (74-99) mg/dL POC Glucose (mg/dL) 231 H 225 H 220 H (75-99) mg/dL Calcium (8.4-10.2) mg/dL Alkaline Phosphatase (38-126) U/L Total Protein (6.3-8.2) g/dL Albumin (3.5-5.0) g/dL Crossmatch 01/05/17 01/05/17 01/05/17 Range/Units 13:01 13:48 15:05 WBC 13.8 H (3.8-10.6) k/uL RBC 2.67 L (4.30-5.90) m/uL Hgb 8.4 L D (13.0-17.5) gm/dL Hct 23.6 L (39.0-53.0) % Plt Count 112 L (150-450) k/uL Neutrophils # 11.9 H (1.3-7.7) k/uL Lymphocytes # (1.0-4.8) k/uL PT (9.0-12.0) sec INR (<1.2) ABG pH (7.35-7.45) ABG pCO2 (35-45) mmHg ABG pO2 (83-108) mmHg ABG HCO3 (21-25) mmol/L ABG Total CO2 (19-24) mmol/L Glucose (74-99) mg/dL POC Glucose (mg/dL) 211 H 148 H (75-99) mg/dL Calcium (8.4-10.2) mg/dL Alkaline Phosphatase (38-126) U/L Total Protein (6.3-8.2) g/dL Albumin (3.5-5.0) g/dL Crossmatch 01/05/17 01/05/17 01/05/17 Range/Units 15:05 15:05 15:32 WBC (3.8-10.6) k/uL RBC (4.30-5.90) m/uL Hgb (13.0-17.5) gm/dL Hct (39.0-53.0) % Plt Count (150-450) k/uL Neutrophils # (1.3-7.7) k/uL Lymphocytes # (1.0-4.8) k/uL PT 12.2 H (9.0-12.0) sec INR 1.2 H (<1.2) ABG pH 7.25 L (7.35-7.45) ABG pCO2 64 H (35-45) mmHg ABG pO2 111 H (83-108) mmHg ABG HCO3 27 H (21-25) mmol/L ABG Total CO2 29 H (19-24) mmol/L Glucose (74-99) mg/dL POC Glucose (mg/dL) (75-99) mg/dL Calcium 7.9 L (8.4-10.2) mg/dL Alkaline Phosphatase 35 L (38-126) U/L Total Protein 4.6 L (6.3-8.2) g/dL Albumin 3.1 L (3.5-5.0) g/dL Crossmatch 01/05/17 01/05/17 01/05/17 Range/Units 15:46 17:01 18:00 WBC 14.9 H (3.8-10.6) k/uL RBC 2.63 L (4.30-5.90) m/uL Hgb 8.2 L (13.0-17.5) gm/dL Hct 23.4 L (39.0-53.0) % Plt Count 147 L (150-450) k/uL Neutrophils # 13.3 H (1.3-7.7) k/uL Lymphocytes # 0.8 L (1.0-4.8) k/uL PT (9.0-12.0) sec INR (<1.2) ABG pH (7.35-7.45) ABG pCO2 (35-45) mmHg ABG pO2 (83-108) mmHg ABG HCO3 (21-25) mmol/L ABG Total CO2 (19-24) mmol/L Glucose (74-99) mg/dL POC Glucose (mg/dL) 113 H 161 H (75-99) mg/dL Calcium (8.4-10.2) mg/dL Alkaline Phosphatase (38-126) U/L Total Protein (6.3-8.2) g/dL Albumin (3.5-5.0) g/dL Crossmatch 01/05/17 01/05/17 01/05/17 Range/Units 18:04 19:01 19:55 WBC (3.8-10.6) k/uL RBC (4.30-5.90) m/uL Hgb (13.0-17.5) gm/dL Hct (39.0-53.0) % Plt Count (150-450) k/uL Neutrophils # (1.3-7.7) k/uL Lymphocytes # (1.0-4.8) k/uL PT (9.0-12.0) sec INR (<1.2) ABG pH (7.35-7.45) ABG pCO2 (35-45) mmHg ABG pO2 (83-108) mmHg ABG HCO3 (21-25) mmol/L ABG Total CO2 (19-24) mmol/L Glucose (74-99) mg/dL POC Glucose (mg/dL) 150 H 150 H 145 H (75-99) mg/dL Calcium (8.4-10.2) mg/dL Alkaline Phosphatase (38-126) U/L Total Protein (6.3-8.2) g/dL Albumin (3.5-5.0) g/dL Crossmatch 01/05/17 01/05/17 01/05/17 Range/Units 20:50 20:50 20:50 WBC 10.8 H (3.8-10.6) k/uL RBC 2.31 L (4.30-5.90) m/uL Hgb 7.2 L (13.0-17.5) gm/dL Hct 20.6 L (39.0-53.0) % Plt Count 114 L (150-450) k/uL Neutrophils # 9.7 H (1.3-7.7) k/uL Lymphocytes # 0.5 L (1.0-4.8) k/uL PT (9.0-12.0) sec INR (<1.2) ABG pH (7.35-7.45) ABG pCO2 (35-45) mmHg ABG pO2 (83-108) mmHg ABG HCO3 (21-25) mmol/L ABG Total CO2 (19-24) mmol/L Glucose 136 H (74-99) mg/dL POC Glucose (mg/dL) 151 H (75-99) mg/dL Calcium 8.0 L (8.4-10.2) mg/dL Alkaline Phosphatase 32 L (38-126) U/L Total Protein 4.8 L (6.3-8.2) g/dL Albumin 3.3 L (3.5-5.0) g/dL Crossmatch 01/05/17 01/05/17 01/05/17 Range/Units 21:49 21:51 23:16 WBC (3.8-10.6) k/uL RBC (4.30-5.90) m/uL Hgb (13.0-17.5) gm/dL Hct (39.0-53.0) % Plt Count (150-450) k/uL Neutrophils # (1.3-7.7) k/uL Lymphocytes # (1.0-4.8) k/uL PT (9.0-12.0) sec INR (<1.2) ABG pH (7.35-7.45) ABG pCO2 31 L (35-45) mmHg ABG pO2 78 L (83-108) mmHg ABG HCO3 (21-25) mmol/L ABG Total CO2 (19-24) mmol/L Glucose (74-99) mg/dL POC Glucose (mg/dL) 152 H 141 H (75-99) mg/dL Calcium (8.4-10.2) mg/dL Alkaline Phosphatase (38-126) U/L Total Protein (6.3-8.2) g/dL Albumin (3.5-5.0) g/dL Crossmatch 01/05/17 01/06/17 01/06/17 Range/Units 23:56 00:56 02:04 WBC (3.8-10.6) k/uL RBC (4.30-5.90) m/uL Hgb (13.0-17.5) gm/dL Hct (39.0-53.0) % Plt Count (150-450) k/uL Neutrophils # (1.3-7.7) k/uL Lymphocytes # (1.0-4.8) k/uL PT (9.0-12.0) sec INR (<1.2) ABG pH (7.35-7.45) ABG pCO2 (35-45) mmHg ABG pO2 (83-108) mmHg ABG HCO3 (21-25) mmol/L ABG Total CO2 (19-24) mmol/L Glucose (74-99) mg/dL POC Glucose (mg/dL) 156 H 144 H 139 H (75-99) mg/dL Calcium (8.4-10.2) mg/dL Alkaline Phosphatase (38-126) U/L Total Protein (6.3-8.2) g/dL Albumin (3.5-5.0) g/dL Crossmatch 01/06/17 01/06/17 01/06/17 Range/Units 03:02 03:45 03:45 WBC (3.8-10.6) k/uL RBC 2.18 L (4.30-5.90) m/uL Hgb 6.8 L* (13.0-17.5) gm/dL Hct 19.4 L* (39.0-53.0) % Plt Count 109 L (150-450) k/uL Neutrophils # 8.8 H (1.3-7.7) k/uL Lymphocytes # 0.9 L (1.0-4.8) k/uL PT (9.0-12.0) sec INR (<1.2) ABG pH (7.35-7.45) ABG pCO2 (35-45) mmHg ABG pO2 (83-108) mmHg ABG HCO3 (21-25) mmol/L ABG Total CO2 (19-24) mmol/L Glucose 125 H (74-99) mg/dL POC Glucose (mg/dL) 145 H (75-99) mg/dL Calcium 8.0 L (8.4-10.2) mg/dL Alkaline Phosphatase 31 L (38-126) U/L Total Protein 4.8 L (6.3-8.2) g/dL Albumin 3.1 L (3.5-5.0) g/dL Crossmatch 01/06/17 01/06/17 01/06/17 Range/Units 03:54 04:54 06:12 WBC (3.8-10.6) k/uL RBC (4.30-5.90) m/uL Hgb (13.0-17.5) gm/dL Hct (39.0-53.0) % Plt Count (150-450) k/uL Neutrophils # (1.3-7.7) k/uL Lymphocytes # (1.0-4.8) k/uL PT (9.0-12.0) sec INR (<1.2) ABG pH (7.35-7.45) ABG pCO2 (35-45) mmHg ABG pO2 (83-108) mmHg ABG HCO3 (21-25) mmol/L ABG Total CO2 (19-24) mmol/L Glucose (74-99) mg/dL POC Glucose (mg/dL) 135 H 138 H 153 H (75-99) mg/dL Calcium (8.4-10.2) mg/dL Alkaline Phosphatase (38-126) U/L Total Protein (6.3-8.2) g/dL Albumin (3.5-5.0) g/dL Crossmatch 01/06/17 Range/Units 06:49 WBC (3.8-10.6) k/uL RBC (4.30-5.90) m/uL Hgb (13.0-17.5) gm/dL Hct (39.0-53.0) % Plt Count (150-450) k/uL Neutrophils # (1.3-7.7) k/uL Lymphocytes # (1.0-4.8) k/uL PT (9.0-12.0) sec INR (<1.2) ABG pH (7.35-7.45) ABG pCO2 (35-45) mmHg ABG pO2 (83-108) mmHg ABG HCO3 (21-25) mmol/L ABG Total CO2 (19-24) mmol/L Glucose (74-99) mg/dL POC Glucose (mg/dL) 145 H (75-99) mg/dL Calcium (8.4-10.2) mg/dL Alkaline Phosphatase (38-126) U/L Total Protein (6.3-8.2) g/dL Albumin (3.5-5.0) g/dL Crossmatch - Imaging and Cardiology Chest x-ray: image reviewed Assessment and Plan (1) Coronary artery disease Status: Acute (2) Hypertension Status: Acute (3) Hyperlipidemia Status: Acute (4) Previous myocardial infarction older than 8 weeks Status: Acute (5) BPH (benign prostatic hyperplasia) Status: Acute (6) Ulcerative colitis Status: Acute (7) Status post ileostomy Status: Acute (8) Tobacco dependence in remission Status: Acute (9) Family history of early CAD Status: Acute (10) COPD (chronic obstructive pulmonary disease) Status: Acute (11) Gastroparesis Status: Acute Plan: 1. Continue aspirin, statin, Plavix, heparin subcu, beta ronni. Will maximize beta ronni therapy as tolerated. 2. Wean O2 as tolerated. Ventilator management per pulmonology services. 3. GI/DVT prophylaxis. 4. Will discontinue [place] today. 5. Will monitor daily labs, chest x-rays. 6. Insulin management per internal medicine service. 7. Passive range of motion while intubated. Once extubated increase activity as tolerated. Physical therapy to follow. 8. More recommendations as patient progresses. Time with Patient: Greater than 30 <Neal Bailey - Last Filed: 01/06/17 11:04> Objective - Vital Signs Vital signs: Vital Signs Temp 97.7 F 01/05/17 07:09 Pulse 91 01/06/17 10:00 Resp 24 01/06/17 10:00 BP 101/61 01/06/17 05:30 Pulse Ox 94 L 01/06/17 10:00 Intake & Output 01/05/17 01/06/17 01/06/17 18:59 06:59 18:59 Intake Total 1001.85 900.044 405.163 Output Total 2734 1004 185 Balance -1732.15 -103.956 220.163 Weight 129.6 kg Intake: IV 938 788 117 Albumin Human 5% 250 ml 500 In Empty Bag 1 bag @ 250 mls/hr IVPB Q1HR PRN Rx#: [id number] CO/CI 180 80 30 Lactated Ringers 1,000 ml 150 600 60 @ 20 mls/hr IV .Q24H SHUN Rx#:[id number] PRESSURE BAG 45 108 27 Intake, IV Titration 63.85 112.044 228.163 Amount Insulin Regular 100 unit 2.55 50.417 13.725 In Sodium Chloride 0.9% 100 ml @ Per Protocol IV .Q0M SHUN Rx#:[id number] Lactated Ringers 1,000 ml 50 @ 20 mls/hr IV .Q24H SHUN Rx#:[id number] Propofol 1,000 mg In 100 11.3 61.627 114.438 ml @ Titrate IV .Q0M SHUN Rx#:[id number] ceFAZolin 3 gm In Sodium 100 Chloride 0.9% 100 ml @ 100 mls/hr IVPB Q8H SHUN Rx#:[id number] Other 60 Output: Chest Tube Drainage 354 301 50 Chest Tube Left Lateral 97 45 10 Chest Chest Tube Mediastinal 257 256 40 Drainage 50 Right Lower Calf 50 Urine 1180 653 135 Estimated Blood Loss 1200 Other: Voiding Method Indwelling Catheter Indwelling Catheter Indwelling Catheter # Bowel Movements 0 0 ABP, PAP, CO, CI - Last Documented Arterial Blood Pressure 116/53 Pulmonary Artery Pressure 30/13 Cardiac Output 6.6 Cardiac Index 2.7 - Labs CBC & Chem 7: 01/06/17 03:45 01/06/17 03:45 Labs: Abnormal Lab Results - Last 24 Hours (Table) 12/30/16 01/05/17 01/05/17 Range/Units 09:20 11:31 11:57 WBC (3.8-10.6) k/uL RBC (4.30-5.90) m/uL Hgb (13.0-17.5) gm/dL Hct (39.0-53.0) % Plt Count (150-450) k/uL Neutrophils # (1.3-7.7) k/uL Lymphocytes # (1.0-4.8) k/uL PT (9.0-12.0) sec INR (<1.2) ABG pH (7.35-7.45) ABG pCO2 (35-45) mmHg ABG pO2 (83-108) mmHg ABG HCO3 (21-25) mmol/L ABG Total CO2 (19-24) mmol/L Glucose (74-99) mg/dL POC Glucose (mg/dL) 231 H 225 H (75-99) mg/dL Calcium (8.4-10.2) mg/dL Alkaline Phosphatase (38-126) U/L Total Protein (6.3-8.2) g/dL Albumin (3.5-5.0) g/dL Crossmatch See Detail 01/05/17 01/05/17 01/05/17 Range/Units 12:26 13:01 13:48 WBC (3.8-10.6) k/uL RBC (4.30-5.90) m/uL Hgb (13.0-17.5) gm/dL Hct (39.0-53.0) % Plt Count (150-450) k/uL Neutrophils # (1.3-7.7) k/uL Lymphocytes # (1.0-4.8) k/uL PT (9.0-12.0) sec INR (<1.2) ABG pH (7.35-7.45) ABG pCO2 (35-45) mmHg ABG pO2 (83-108) mmHg ABG HCO3 (21-25) mmol/L ABG Total CO2 (19-24) mmol/L Glucose (74-99) mg/dL POC Glucose (mg/dL) 220 H 211 H 148 H (75-99) mg/dL Calcium (8.4-10.2) mg/dL Alkaline Phosphatase (38-126) U/L Total Protein (6.3-8.2) g/dL Albumin (3.5-5.0) g/dL Crossmatch 01/05/17 01/05/17 01/05/17 Range/Units 15:05 15:05 15:05 WBC 13.8 H (3.8-10.6) k/uL RBC 2.67 L (4.30-5.90) m/uL Hgb 8.4 L D (13.0-17.5) gm/dL Hct 23.6 L (39.0-53.0) % Plt Count 112 L (150-450) k/uL Neutrophils # 11.9 H (1.3-7.7) k/uL Lymphocytes # (1.0-4.8) k/uL PT 12.2 H (9.0-12.0) sec INR 1.2 H (<1.2) ABG pH (7.35-7.45) ABG pCO2 (35-45) mmHg ABG pO2 (83-108) mmHg ABG HCO3 (21-25) mmol/L ABG Total CO2 (19-24) mmol/L Glucose (74-99) mg/dL POC Glucose (mg/dL) (75-99) mg/dL Calcium 7.9 L (8.4-10.2) mg/dL Alkaline Phosphatase 35 L (38-126) U/L Total Protein 4.6 L (6.3-8.2) g/dL Albumin 3.1 L (3.5-5.0) g/dL Crossmatch 01/05/17 01/05/17 01/05/17 Range/Units 15:32 15:46 17:01 WBC (3.8-10.6) k/uL RBC (4.30-5.90) m/uL Hgb (13.0-17.5) gm/dL Hct (39.0-53.0) % Plt Count (150-450) k/uL Neutrophils # (1.3-7.7) k/uL Lymphocytes # (1.0-4.8) k/uL PT (9.0-12.0) sec INR (<1.2) ABG pH 7.25 L (7.35-7.45) ABG pCO2 64 H (35-45) mmHg ABG pO2 111 H (83-108) mmHg ABG HCO3 27 H (21-25) mmol/L ABG Total CO2 29 H (19-24) mmol/L Glucose (74-99) mg/dL POC Glucose (mg/dL) 113 H 161 H (75-99) mg/dL Calcium (8.4-10.2) mg/dL Alkaline Phosphatase (38-126) U/L Total Protein (6.3-8.2) g/dL Albumin (3.5-5.0) g/dL Crossmatch 01/05/17 01/05/17 01/05/17 Range/Units 18:00 18:04 19:01 WBC 14.9 H (3.8-10.6) k/uL RBC 2.63 L (4.30-5.90) m/uL Hgb 8.2 L (13.0-17.5) gm/dL Hct 23.4 L (39.0-53.0) % Plt Count 147 L (150-450) k/uL Neutrophils # 13.3 H (1.3-7.7) k/uL Lymphocytes # 0.8 L (1.0-4.8) k/uL PT (9.0-12.0) sec INR (<1.2) ABG pH (7.35-7.45) ABG pCO2 (35-45) mmHg ABG pO2 (83-108) mmHg ABG HCO3 (21-25) mmol/L ABG Total CO2 (19-24) mmol/L Glucose (74-99) mg/dL POC Glucose (mg/dL) 150 H 150 H (75-99) mg/dL Calcium (8.4-10.2) mg/dL Alkaline Phosphatase (38-126) U/L Total Protein (6.3-8.2) g/dL Albumin (3.5-5.0) g/dL Crossmatch 01/05/17 01/05/17 01/05/17 Range/Units 19:55 20:50 20:50 WBC 10.8 H (3.8-10.6) k/uL RBC 2.31 L (4.30-5.90) m/uL Hgb 7.2 L (13.0-17.5) gm/dL Hct 20.6 L (39.0-53.0) % Plt Count 114 L (150-450) k/uL Neutrophils # 9.7 H (1.3-7.7) k/uL Lymphocytes # 0.5 L (1.0-4.8) k/uL PT (9.0-12.0) sec INR (<1.2) ABG pH (7.35-7.45) ABG pCO2 (35-45) mmHg ABG pO2 (83-108) mmHg ABG HCO3 (21-25) mmol/L ABG Total CO2 (19-24) mmol/L Glucose (74-99) mg/dL POC Glucose (mg/dL) 145 H 151 H (75-99) mg/dL Calcium (8.4-10.2) mg/dL Alkaline Phosphatase (38-126) U/L Total Protein (6.3-8.2) g/dL Albumin (3.5-5.0) g/dL Crossmatch 01/05/17 01/05/17 01/05/17 Range/Units 20:50 21:49 21:51 WBC (3.8-10.6) k/uL RBC (4.30-5.90) m/uL Hgb (13.0-17.5) gm/dL Hct (39.0-53.0) % Plt Count (150-450) k/uL Neutrophils # (1.3-7.7) k/uL Lymphocytes # (1.0-4.8) k/uL PT (9.0-12.0) sec INR (<1.2) ABG pH (7.35-7.45) ABG pCO2 31 L (35-45) mmHg ABG pO2 78 L (83-108) mmHg ABG HCO3 (21-25) mmol/L ABG Total CO2 (19-24) mmol/L Glucose 136 H (74-99) mg/dL POC Glucose (mg/dL) 152 H (75-99) mg/dL Calcium 8.0 L (8.4-10.2) mg/dL Alkaline Phosphatase 32 L (38-126) U/L Total Protein 4.8 L (6.3-8.2) g/dL Albumin 3.3 L (3.5-5.0) g/dL Crossmatch 01/05/17 01/05/17 01/06/17 Range/Units 23:16 23:56 00:56 WBC (3.8-10.6) k/uL RBC (4.30-5.90) m/uL Hgb (13.0-17.5) gm/dL Hct (39.0-53.0) % Plt Count (150-450) k/uL Neutrophils # (1.3-7.7) k/uL Lymphocytes # (1.0-4.8) k/uL PT (9.0-12.0) sec INR (<1.2) ABG pH (7.35-7.45) ABG pCO2 (35-45) mmHg ABG pO2 (83-108) mmHg ABG HCO3 (21-25) mmol/L ABG Total CO2 (19-24) mmol/L Glucose (74-99) mg/dL POC Glucose (mg/dL) 141 H 156 H 144 H (75-99) mg/dL Calcium (8.4-10.2) mg/dL Alkaline Phosphatase (38-126) U/L Total Protein (6.3-8.2) g/dL Albumin (3.5-5.0) g/dL Crossmatch 01/06/17 01/06/17 01/06/17 Range/Units 02:04 03:02 03:45 WBC (3.8-10.6) k/uL RBC 2.18 L (4.30-5.90) m/uL Hgb 6.8 L* (13.0-17.5) gm/dL Hct 19.4 L* (39.0-53.0) % Plt Count 109 L (150-450) k/uL Neutrophils # 8.8 H (1.3-7.7) k/uL Lymphocytes # 0.9 L (1.0-4.8) k/uL PT (9.0-12.0) sec INR (<1.2) ABG pH (7.35-7.45) ABG pCO2 (35-45) mmHg ABG pO2 (83-108) mmHg ABG HCO3 (21-25) mmol/L ABG Total CO2 (19-24) mmol/L Glucose (74-99) mg/dL POC Glucose (mg/dL) 139 H 145 H (75-99) mg/dL Calcium (8.4-10.2) mg/dL Alkaline Phosphatase (38-126) U/L Total Protein (6.3-8.2) g/dL Albumin (3.5-5.0) g/dL Crossmatch 01/06/17 01/06/17 01/06/17 Range/Units 03:45 03:54 04:54 WBC (3.8-10.6) k/uL RBC (4.30-5.90) m/uL Hgb (13.0-17.5) gm/dL Hct (39.0-53.0) % Plt Count (150-450) k/uL Neutrophils # (1.3-7.7) k/uL Lymphocytes # (1.0-4.8) k/uL PT (9.0-12.0) sec INR (<1.2) ABG pH (7.35-7.45) ABG pCO2 (35-45) mmHg ABG pO2 (83-108) mmHg ABG HCO3 (21-25) mmol/L ABG Total CO2 (19-24) mmol/L Glucose 125 H (74-99) mg/dL POC Glucose (mg/dL) 135 H 138 H (75-99) mg/dL Calcium 8.0 L (8.4-10.2) mg/dL Alkaline Phosphatase 31 L (38-126) U/L Total Protein 4.8 L (6.3-8.2) g/dL Albumin 3.1 L (3.5-5.0) g/dL Crossmatch 01/06/17 01/06/17 01/06/17 Range/Units 06:12 06:49 08:09 WBC (3.8-10.6) k/uL RBC (4.30-5.90) m/uL Hgb (13.0-17.5) gm/dL Hct (39.0-53.0) % Plt Count (150-450) k/uL Neutrophils # (1.3-7.7) k/uL Lymphocytes # (1.0-4.8) k/uL PT (9.0-12.0) sec INR (<1.2) ABG pH (7.35-7.45) ABG pCO2 (35-45) mmHg ABG pO2 (83-108) mmHg ABG HCO3 (21-25) mmol/L ABG Total CO2 (19-24) mmol/L Glucose (74-99) mg/dL POC Glucose (mg/dL) 153 H 145 H 152 H (75-99) mg/dL Calcium (8.4-10.2) mg/dL Alkaline Phosphatase (38-126) U/L Total Protein (6.3-8.2) g/dL Albumin (3.5-5.0) g/dL Crossmatch 01/06/17 01/06/17 01/06/17 Range/Units 08:32 09:10 10:09 WBC (3.8-10.6) k/uL RBC (4.30-5.90) m/uL Hgb (13.0-17.5) gm/dL Hct (39.0-53.0) % Plt Count (150-450) k/uL Neutrophils # (1.3-7.7) k/uL Lymphocytes # (1.0-4.8) k/uL PT (9.0-12.0) sec INR (<1.2) ABG pH 7.46 H (7.35-7.45) ABG pCO2 28 L (35-45) mmHg ABG pO2 71 L (83-108) mmHg ABG HCO3 20 L (21-25) mmol/L ABG Total CO2 (19-24) mmol/L Glucose (74-99) mg/dL POC Glucose (mg/dL) 143 H 139 H (75-99) mg/dL Calcium (8.4-10.2) mg/dL Alkaline Phosphatase (38-126) U/L Total Protein (6.3-8.2) g/dL Albumin (3.5-5.0) g/dL Crossmatch Assessment and Plan Plan: The patient was seen and examined. I agree with the above assessment and plan. He was extubated earlier this morning. He appears to be neurologically intact. His cardiac index is 2.7. We will likely discontinue his [place] catheter later today. He will be given a beta ronni. His chest x-ray appears to be clear. We'll get him up in a chair later this afternoon.
--- NOTE | 2017-01-06 10:53 | P.CNPUL ---
History of Present Illness Consult date: 01/06/17 Requesting physician: Neal Bailey Reason for consult: other (Critical care/ventilator management) Chief complaint: Coronary artery disease History of present illness: This is a very pleasant 61-year-old gentleman who follows with Dr. Webster as his primary care physician. He has a history of hypertension, hyperlipidemia, coronary artery disease, obstructive sleep apnea, colitis status post with subtotal colectomy with ileostomy. He had undergone cardiac catheterization by Dr. Hdz on 11/18/2016 for recurrent angina. He was found to have advanced triple-vessel disease and was recommended coronary artery bypass grafting. He presented here yesterday for an elective surgery with Dr. Bailey. This is postoperative day #1. He performed a GARCIA to the LAD, saphenous vein graft to the obtuse marginal artery, saphenous vein graft to the posterior descending artery. Presently he remains intubated on the mechanical ventilator. Assist control of 20, tidal volume 550, FiO2 40% and a PEEP of 5. Morning blood gases reveal a pO2 of 71, pCO2 of 28, pH 7.46. He was extubated earlier because he did not have a cuff leak. He has been sedated with the program. He isn't on a insulin drip at 5.5 units per hour. Lactated Ringer at 50 MLS per hour. No other drips. His cardiac index is 2.7. PA pressures 30/14, CVP 9. Urine output adequate at 40-60 mL's per hour. Chest tubes remain in place mediastinal 2, left pleural. Chest x-ray shows some bibasilar atelectasis left greater than right. He does have a known left upper lobe calcified nodule that's been present and stable since 2014. No leukocytosis. Hemoglobin 6.8. Platelet count 109,000. Electrolytes and creatinine stable. Review of Systems ROS unobtainable: due to endotracheal tube Past Medical History Past Medical History: Chest Pain / Angina, GERD/Reflux, Hyperlipidemia, Hypertension, Myocardial Infarction ([place]), Prostate Disorder Additional Past Medical History / Comment(s): SOB with activity-relieved with rest,states "my gallbladder isn't working quite right, I have had a lot of surgeries in the past and I have some scar tissue.",enlarged prostate, ulcerative colitis-has ileostomy,kidney stones, long ago hx. of dialysis for 5 days due to elevated potassium per pt. Last Myocardial Infarction Date:: unk History of Any Multi-Drug Resistant Organisms: None Reported Past Surgical History: Bowel Resection, Heart Catheterization, Hernia Repair Additional Past Surgical History / Comment(s): ileostomy with large bowel and rectum removed,lt hernia repair x 5 or 6,lithotripsy Past Anesthesia/Blood Transfusion Reactions: No Reported Reaction Additional Past Anesthesia/Blood Transfusion Reaction / Comment(s): no problems with prior blood transfusions Smoking Status: Former smoker - Past Family History Mother Family Medical History: Deep Vein Thrombosis (DVT) Additional Family Medical History / Comment(s): at age 92 Father Family Medical History: Myocardial Infarction ([place]) Additional Family Medical History / Comment(s): at age 55 Medications and Allergies Home Medications Medication Instructions Recorded Confirmed Type Aspirin 81 mg PO DAILY 11/11/16 01/05/17 History Cholecalciferol (Vitamin D3) 2,000 unit PO DAILY 11/11/16 01/05/17 History [Vitamin D3] Finasteride [Proscar] 5 mg PO DAILY 11/11/16 01/05/17 History Fluticasone Nasal [place] [Flonase 2 spray EA NOSTRIL DAILY 11/11/16 01/05/17 History Nasal Pine] Hydrochlorothiazide 25 mg PO DAILY 11/11/16 01/05/17 History Losartan Potassium 100 mg PO DAILY 11/11/16 01/05/17 History Magnesium Oxide [Mag-Ox] 400 mg PO DAILY 11/11/16 01/05/17 History Metoclopramide HCl [Reglan] 10 mg PO BID 11/11/16 01/05/17 History Metoprolol Tartrate [Lopressor] 25 mg PO BID 11/11/16 01/05/17 History Montelukast [Singulair] 10 mg PO HS 11/11/16 01/05/17 History Multivit-Min/FA/Lycopen/Lutein 1 tab PO DAILY 11/11/16 01/05/17 History [Centrum Silver Men Tablet] Omeprazole [PriLOSEC] 20 mg PO DAILY 11/11/16 01/05/17 History Mupirocin 2% Nasal Oint [Bactroban 1 applic NASAL BID 01/02/17 01/05/17 History 2% Nasal Oint] Atorvastatin [Lipitor] 80 mg PO HS 01/05/17 01/05/17 History Allergies Allergy/AdvReac Type Severity Reaction Status Date / Time No Known Allergies Allergy Verified 01/05/17 14:17 Physical Exam Vitals: Vital Signs Pulse Pulse Resp BP Pulse Ox 01/06/17 10:00 91 24 94 L 01/06/17 09:00 105 H 28 H 90 L 01/06/17 08:00 106 H 25 H 91 L 01/06/17 07:45 106 H 01/06/17 07:11 106 H 01/06/17 07:00 106 H 28 H 91 L 01/06/17 06:30 106 H 27 H 93 L 01/06/17 06:00 107 H 26 H 92 L 01/06/17 05:30 107 H 27 H 101/61 93 L 01/06/17 05:00 106 H 23 101/61 93 L 01/06/17 04:30 107 H 25 H 101/61 92 L 01/06/17 04:00 107 H 25 H 101/61 93 L 01/06/17 03:44 105 H 01/06/17 03:30 105 H 21 95 01/06/17 03:22 107 H 01/06/17 03:00 107 H 24 92 L 01/06/17 02:30 109 H 24 94 L 01/06/17 02:00 112 H 26 H 94 L 01/06/17 01:30 113 H 24 93 L 01/06/17 01:00 111 H 25 H 95 01/06/17 00:30 110 H 24 92 L 01/06/17 00:00 104 H 26 H 96 01/05/17 23:47 105 H 01/05/17 23:39 107 H 01/05/17 23:30 113 H 26 H 91 L 01/05/17 23:00 107 H 26 H 95 01/05/17 22:30 106 H 94 L 01/05/17 22:05 96 94 L 01/05/17 22:00 97 24 94 L 01/05/17 21:00 96 25 H 95 01/05/17 20:00 96 26 H 95 01/05/17 19:25 102 H 01/05/17 19:12 100 01/05/17 19:00 90 20 97 01/05/17 18:10 86 99 01/05/17 18:00 90 98 01/05/17 17:50 87 99 01/05/17 17:40 86 99 01/05/17 17:30 95 28 H 96 01/05/17 17:20 80 99 01/05/17 17:10 78 100 01/05/17 17:00 77 100 01/05/17 16:50 81 99 01/05/17 16:40 78 99 01/05/17 16:30 75 99 01/05/17 16:20 74 98 01/05/17 16:10 77 26 H 99 01/05/17 16:08 77 01/05/17 16:00 82 69 20 98 01/05/17 15:58 84 01/05/17 15:50 84 99 01/05/17 15:40 97 92 L 01/05/17 15:30 85 22 98 01/05/17 15:20 83 100 01/05/17 15:10 80 93 L Intake and Output 01/05/17 01/06/17 01/06/17 22:59 06:59 14:59 Intake Total 1169.787 669.107 405.163 Output Total 1211 592 185 Balance -41.213 77.107 220.163 Intake: IV 1092 571 117 Albumin Human 5% 250 ml 500 In Empty Bag 1 bag @ 250 mls/hr IVPB Q1HR PRN Rx#: [id number] CO/CI 220 40 30 Lactated Ringers 1,000 ml 300 450 60 @ 20 mls/hr IV .Q24H SHUN Rx#:[id number] PRESSURE BAG 72 81 27 Intake, IV Titration 77.787 98.107 228.163 Amount Insulin Regular 100 unit 11.917 41.050 13.725 In Sodium Chloride 0.9% 100 ml @ Per Protocol IV .Q0M SHUN Rx#:[id number] Lactated Ringers 1,000 ml 50 @ 20 mls/hr IV .Q24H SHUN Rx#:[id number] Propofol 1,000 mg In 100 15.87 57.057 114.438 ml @ Titrate IV .Q0M SHUN Rx#:[id number] ceFAZolin 3 gm In Sodium 100 Chloride 0.9% 100 ml @ 100 mls/hr IVPB Q8H SHUN Rx#:[id number] Other 60 Output: Chest Tube Drainage 486 134 50 Chest Tube Left Lateral 124 18 10 Chest Chest Tube Mediastinal 362 116 40 Drainage 50 Right Lower Calf 50 Urine 725 408 135 Other: Voiding Method Indwelling Catheter Indwelling Catheter Indwelling Catheter # Bowel Movements 0 0 Weight 129.6 kg ABP, PAP, CO, CI - Last 8 Hours Arterial Blood Pressure 116/53 Arterial Blood Pressure 123/60 Arterial Blood Pressure 109/57 Arterial Blood Pressure 110/55 Arterial Blood Pressure 110/57 Arterial Blood Pressure 113/59 Arterial Blood Pressure 107/55 Arterial Blood Pressure 105/55 Arterial Blood Pressure 108/53 Arterial Blood Pressure 103/54 Arterial Blood Pressure 101/53 Pulmonary Artery Pressure 30/13 Pulmonary Artery Pressure 30/14 Pulmonary Artery Pressure 31/14 Pulmonary Artery Pressure 38/20 Pulmonary Artery Pressure 29/17 Pulmonary Artery Pressure 32/17 Pulmonary Artery Pressure 30/16 Pulmonary Artery Pressure 30/18 Pulmonary Artery Pressure 33/18 Pulmonary Artery Pressure 31/17 Pulmonary Artery Pressure 28/17 Pulmonary Artery Pressure 30/19 Cardiac Output 6.6 Cardiac Output 5.9 Cardiac Output 5.9 Cardiac Output 5.9 Cardiac Output 5.9 Cardiac Output 5.9 Cardiac Output 5.9 Cardiac Output 7.5 Cardiac Output 7.5 Cardiac Index 2.7 Cardiac Index 2.4 GENERAL EXAM: Intubated, sedated, comfortable in no apparent distress. HEAD: Normocephalic. EYES: Normal reaction of pupils, equal size. NOSE: Clear with pink turbinates. THROAT: Endotracheal, gastric tube secured in place NECK: No masses, no JVD. Left IJ [place] in place. CHEST: General dressing dry and intact. Mediastinal and left pleural chest tubes in place. Pacemaker wires in place. LUNGS: Equal air entry with faint crackles in the posterior bases. CVS: S1 and S2 normal with no audible murmurs, regular rhythm. ABDOMEN: No hepatosplenomegaly, normal bowel sounds, no guarding or rigidity. SPINE: No scoliosis or deformity SKIN: No rashes Extremities: There is trace peripheral edema. Bilateral PORFIRIO drains in place. JOSE hose in place. Sequential compression devices in place. Peripheral pulses are intact. Results - Laboratory Findings CBC and BMP: 01/06/17 03:45 01/06/17 03:45 ABG ABG pH 7.46 (7.35-7.45) H 01/06/17 08:32 ABG pCO2 28 mmHg (35-45) L 01/06/17 08:32 ABG pO2 71 mmHg (83-108) L 01/06/17 08:32 ABG O2 Saturation 95.0 % (94-97) 01/06/17 08:32 PT/INR, D-dimer PT 11.0 sec (9.0-12.0) 01/06/17 03:45 INR 1.1 (<1.2) 01/06/17 03:45 Abnormal lab findings: Abnormal Labs 12/30/16 01/05/17 01/05/17 09:20 09:05 10:16 WBC RBC Hgb Hct Plt Count Neutrophils # Lymphocytes # PT INR ABG pH ABG pCO2 ABG pO2 ABG HCO3 ABG Total CO2 Glucose POC Glucose (mg/dL) 100 H 121 H Calcium Alkaline Phosphatase Total Protein Albumin Crossmatch See Detail 01/05/17 01/05/17 01/05/17 11:31 11:57 12:26 WBC RBC Hgb Hct Plt Count Neutrophils # Lymphocytes # PT INR ABG pH ABG pCO2 ABG pO2 ABG HCO3 ABG Total CO2 Glucose POC Glucose (mg/dL) 231 H 225 H 220 H Calcium Alkaline Phosphatase Total Protein Albumin Crossmatch 01/05/17 01/05/17 01/05/17 13:01 13:48 15:05 WBC 13.8 H RBC 2.67 L Hgb 8.4 L D Hct 23.6 L Plt Count 112 L Neutrophils # 11.9 H Lymphocytes # PT INR ABG pH ABG pCO2 ABG pO2 ABG HCO3 ABG Total CO2 Glucose POC Glucose (mg/dL) 211 H 148 H Calcium Alkaline Phosphatase Total Protein Albumin Crossmatch 01/05/17 01/05/17 01/05/17 15:05 15:05 15:32 WBC RBC Hgb Hct Plt Count Neutrophils # Lymphocytes # PT 12.2 H INR 1.2 H ABG pH 7.25 L ABG pCO2 64 H ABG pO2 111 H ABG HCO3 27 H ABG Total CO2 29 H Glucose POC Glucose (mg/dL) Calcium 7.9 L Alkaline Phosphatase 35 L Total Protein 4.6 L Albumin 3.1 L Crossmatch 01/05/17 01/05/17 01/05/17 15:46 17:01 18:00 WBC 14.9 H RBC 2.63 L Hgb 8.2 L Hct 23.4 L Plt Count 147 L Neutrophils # 13.3 H Lymphocytes # 0.8 L PT INR ABG pH ABG pCO2 ABG pO2 ABG HCO3 ABG Total CO2 Glucose POC Glucose (mg/dL) 113 H 161 H Calcium Alkaline Phosphatase Total Protein Albumin Crossmatch 01/05/17 01/05/17 01/05/17 18:04 19:01 19:55 WBC RBC Hgb Hct Plt Count Neutrophils # Lymphocytes # PT INR ABG pH ABG pCO2 ABG pO2 ABG HCO3 ABG Total CO2 Glucose POC Glucose (mg/dL) 150 H 150 H 145 H Calcium Alkaline Phosphatase Total Protein Albumin Crossmatch 01/05/17 01/05/17 01/05/17 20:50 20:50 20:50 WBC 10.8 H RBC 2.31 L Hgb 7.2 L Hct 20.6 L Plt Count 114 L Neutrophils # 9.7 H Lymphocytes # 0.5 L PT INR ABG pH ABG pCO2 ABG pO2 ABG HCO3 ABG Total CO2 Glucose 136 H POC Glucose (mg/dL) 151 H Calcium 8.0 L Alkaline Phosphatase 32 L Total Protein 4.8 L Albumin 3.3 L Crossmatch 01/05/17 01/05/17 01/05/17 21:49 21:51 23:16 WBC RBC Hgb Hct Plt Count Neutrophils # Lymphocytes # PT INR ABG pH ABG pCO2 31 L ABG pO2 78 L ABG HCO3 ABG Total CO2 Glucose POC Glucose (mg/dL) 152 H 141 H Calcium Alkaline Phosphatase Total Protein Albumin Crossmatch 01/05/17 01/06/17 01/06/17 23:56 00:56 02:04 WBC RBC Hgb Hct Plt Count Neutrophils # Lymphocytes # PT INR ABG pH ABG pCO2 ABG pO2 ABG HCO3 ABG Total CO2 Glucose POC Glucose (mg/dL) 156 H 144 H 139 H Calcium Alkaline Phosphatase Total Protein Albumin Crossmatch 01/06/17 01/06/17 01/06/17 03:02 03:45 03:45 WBC RBC 2.18 L Hgb 6.8 L* Hct 19.4 L* Plt Count 109 L Neutrophils # 8.8 H Lymphocytes # 0.9 L PT INR ABG pH ABG pCO2 ABG pO2 ABG HCO3 ABG Total CO2 Glucose 125 H POC Glucose (mg/dL) 145 H Calcium 8.0 L Alkaline Phosphatase 31 L Total Protein 4.8 L Albumin 3.1 L Crossmatch 01/06/17 01/06/17 01/06/17 03:54 04:54 06:12 WBC RBC Hgb Hct Plt Count Neutrophils # Lymphocytes # PT INR ABG pH ABG pCO2 ABG pO2 ABG HCO3 ABG Total CO2 Glucose POC Glucose (mg/dL) 135 H 138 H 153 H Calcium Alkaline Phosphatase Total Protein Albumin Crossmatch 01/06/17 01/06/17 01/06/17 06:49 08:09 08:32 WBC RBC Hgb Hct Plt Count Neutrophils # Lymphocytes # PT INR ABG pH 7.46 H ABG pCO2 28 L ABG pO2 71 L ABG HCO3 20 L ABG Total CO2 Glucose POC Glucose (mg/dL) 145 H 152 H Calcium Alkaline Phosphatase Total Protein Albumin Crossmatch 01/06/17 01/06/17 09:10 10:09 WBC RBC Hgb Hct Plt Count Neutrophils # Lymphocytes # PT INR ABG pH ABG pCO2 ABG pO2 ABG HCO3 ABG Total CO2 Glucose POC Glucose (mg/dL) 143 H 139 H Calcium Alkaline Phosphatase Total Protein Albumin Crossmatch - Diagnostic Findings Chest x-ray: image reviewed Assessment and Plan Plan: Impression: #1 Coronary artery disease status post coronary artery bypass grafting utilizing a GARCIA to the LAD, saphenous vein grafts to the obtuse marginal and posterior descending arteries. #2 Ventilator dependence as an expected outcome of thoracotomy. #3 Anemia as an expected outcome of thoracotomy. #4 Hypertension, history of. #5 Hyperlipidemia. #6 Previous myocardial infarction. #7 Benign prosthetic hypertrophy. #8 Ulcerative colitis status post ileostomy. Plan: The patient was seen and evaluated by Dr. Yadav. His chest x-ray and labs were reviewed. The patient now has a cuff leak and he is off his sedation. He was given a CPAP trial. Weaning parameters revealed a tidal volume of 640, vital 1.24, respiratory rate 23, RSBI 32, NIF -26, minute ventilation 14.2. He was awake and alert and following simple commands. He was successfully extubated to 4 L/m per nasal cannula. He is again educated regarding the importance of the incentive spirometer and cough and deep breathing exercises. We'll continue to monitor him here closely in the intensive care unit. We'll continue to follow. Critical care time 38 minutes. Time with Patient: Greater than 30
--- NOTE | 2017-01-06 10:54 | XR ---
EXAMINATION TYPE: XR chest 1V portable DATE OF EXAM: 01/06/2017 COMPARISON: Prior chest x-ray 01/05/2017 HISTORY: Postop cardiac surgery, intubated TECHNIQUE: Single frontal view of the chest is obtained. FINDINGS: Endotracheal tube, NG tube, left chest tube are overlying appropriate positions, median st ernal drain in place. Left jugular central venous catheter shows the distal tip in the right pulmonar y artery region. No sizable pneumothorax or pleural effusion. Patchy basilar density is persistent. H eart size is stable. IMPRESSION: Basilar atelectasis versus edema. There may be some slight interval improvement in aerat ion as compared to prior exam
[2017-01-06] MEDS: MORPHINE SULFATE 2 MG/ML SYRINGE IVP PRN (11:02)
--- NOTE | 2017-01-06 11:35 | P.CRDCN ---
History of Present Illness Consult date: 01/06/17 Reason for Consult (text): Coronary artery disease status post CABG History of present illness: 61-year-old gentleman with multivessel coronary artery disease who underwent bypass surgery yesterday. Today is postop day #1. He is feeling better. His off vent maintaining sinus rhythm blood pressures are well controlled. I reviewed his records including angiograms and prior testing. I reviewed his medications and labs. Will review and drain His current medications Patient is doing well this morning other than the discomfort related to the insertion Review of Systems Constitutional: Denies chills. Denies fever. Eyes: Denies blurred vision. Denies pain. Ears, nose, mouth and throat: Denies headache. Denies sore throat. Cardiovascular: Musculoskeletal pain Respiratory: Denies cough. Gastrointestinal: Denies abdominal pain. Denies diarrhea. Denies nausea. Denies vomiting. Musculoskeletal: Denies myalgias. Integumentary: Denies pruritus. Denies rash. Neurological: Denies numbness. Denies weakness. Psychiatric: Denies anxiety. Denies depression. Endocrine: Denies fatigue. Denies weight change. Genitourinary: Denies burning, hematuria, frequency of urination. Hematological: No anemia or excess bleeding. Past Medical History Past Medical History: Chest Pain / Angina, GERD/Reflux, Hyperlipidemia, Hypertension, Myocardial Infarction (ID), Prostate Disorder Additional Past Medical History / Comment(s): SOB with activity-relieved with rest,states "my gallbladder isn't working quite right, I have had a lot of surgeries in the past and I have some scar tissue.",enlarged prostate, ulcerative colitis-has ileostomy,kidney stones, long ago hx. of dialysis for 5 days due to elevated potassium per pt. Last Myocardial Infarction Date:: unk History of Any Multi-Drug Resistant Organisms: None Reported Past Surgical History: Bowel Resection, Heart Catheterization, Hernia Repair Additional Past Surgical History / Comment(s): ileostomy with large bowel and rectum removed,lt hernia repair x 5 or 6,lithotripsy Past Anesthesia/Blood Transfusion Reactions: No Reported Reaction Additional Past Anesthesia/Blood Transfusion Reaction / Comment(s): no problems with prior blood transfusions Smoking Status: Former smoker - Past Family History Mother Family Medical History: Deep Vein Thrombosis (DVT) Additional Family Medical History / Comment(s): at age 92 Father Family Medical History: Myocardial Infarction (ID) Additional Family Medical History / Comment(s): at age 55 Medications and Allergies Home Medications Medication Instructions Recorded Confirmed Type Aspirin 81 mg PO DAILY 11/11/16 01/05/17 History Cholecalciferol (Vitamin D3) 2,000 unit PO DAILY 11/11/16 01/05/17 History [Vitamin D3] Finasteride [Proscar] 5 mg PO DAILY 11/11/16 01/05/17 History Fluticasone Nasal [place] [Flonase 2 spray EA NOSTRIL DAILY 11/11/16 01/05/17 History Nasal [place]] Hydrochlorothiazide 25 mg PO DAILY 11/11/16 01/05/17 History Losartan Potassium 100 mg PO DAILY 11/11/16 01/05/17 History Magnesium Oxide [Mag-Ox] 400 mg PO DAILY 11/11/16 01/05/17 History Metoclopramide HCl [Reglan] 10 mg PO BID 11/11/16 01/05/17 History Metoprolol Tartrate [Lopressor] 25 mg PO BID 11/11/16 01/05/17 History Montelukast [Singulair] 10 mg PO HS 11/11/16 01/05/17 History Multivit-Min/FA/Lycopen/Lutein 1 tab PO DAILY 11/11/16 01/05/17 History [Centrum Silver Men Tablet] Omeprazole [PriLOSEC] 20 mg PO DAILY 11/11/16 01/05/17 History Mupirocin 2% Nasal Oint [Bactroban 1 applic NASAL BID 01/02/17 01/05/17 History 2% Nasal Oint] Atorvastatin [Lipitor] 80 mg PO HS 01/05/17 01/05/17 History Allergies Allergy/AdvReac Type Severity Reaction Status Date / Time No Known Allergies Allergy Verified 01/05/17 14:17 Physical Exam Vitals: Vital Signs Pulse Pulse Resp BP Pulse Ox 01/06/17 11:00 91 23 91 L 01/06/17 10:00 91 24 94 L 01/06/17 09:00 105 H 28 H 90 L 01/06/17 08:00 106 H 25 H 91 L 01/06/17 07:45 106 H 01/06/17 07:11 106 H 01/06/17 07:00 106 H 28 H 91 L 01/06/17 06:30 106 H 27 H 93 L 01/06/17 06:00 107 H 26 H 92 L 01/06/17 05:30 107 H 27 H 101/61 93 L 01/06/17 05:00 106 H 23 101/61 93 L 01/06/17 04:30 107 H 25 H 101/61 92 L 01/06/17 04:00 107 H 25 H 101/61 93 L 01/06/17 03:44 105 H 01/06/17 03:30 105 H 21 95 01/06/17 03:22 107 H 01/06/17 03:00 107 H 24 92 L 01/06/17 02:30 109 H 24 94 L 01/06/17 02:00 112 H 26 H 94 L 01/06/17 01:30 113 H 24 93 L 01/06/17 01:00 111 H 25 H 95 01/06/17 00:30 110 H 24 92 L 01/06/17 00:00 104 H 26 H 96 01/05/17 23:47 105 H 01/05/17 23:39 107 H 01/05/17 23:30 113 H 26 H 91 L 01/05/17 23:00 107 H 26 H 95 01/05/17 22:30 106 H 94 L 01/05/17 22:05 96 94 L 01/05/17 22:00 97 24 94 L 01/05/17 21:00 96 25 H 95 01/05/17 20:00 96 26 H 95 01/05/17 19:25 102 H 01/05/17 19:12 100 01/05/17 19:00 90 20 97 01/05/17 18:10 86 99 01/05/17 18:00 90 98 01/05/17 17:50 87 99 01/05/17 17:40 86 99 01/05/17 17:30 95 28 H 96 01/05/17 17:20 80 99 01/05/17 17:10 78 100 01/05/17 17:00 77 100 01/05/17 16:50 81 99 01/05/17 16:40 78 99 01/05/17 16:30 75 99 01/05/17 16:20 74 98 01/05/17 16:10 77 26 H 99 01/05/17 16:08 77 01/05/17 16:00 82 69 20 98 09/11/17 15:58 84 01/05/17 15:50 84 99 01/05/17 15:40 97 92 L 01/05/17 15:30 85 22 98 01/05/17 15:20 83 100 01/05/17 15:10 80 93 L Intake and Output 01/05/17 01/06/17 01/06/17 22:59 06:59 14:59 Intake Total 1169.787 669.107 434.163 Output Total 1211 592 225 Balance -41.213 77.107 209.163 Intake: IV 1092 571 146 Albumin Human 5% 250 ml 500 In Empty Bag 1 bag @ 250 mls/hr IVPB Q1HR PRN Rx#: [id number] CO/CI 220 40 30 Lactated Ringers 1,000 ml 300 450 80 @ 20 mls/hr IV .Q24H SHUN Rx#:[id number] PRESSURE BAG 72 81 36 Intake, IV Titration 77.787 98.107 228.163 Amount Insulin Regular 100 unit 11.917 41.050 13.725 In Sodium Chloride 0.9% 100 ml @ Per Protocol IV .Q0M SHUN Rx#:[id number] Lactated Ringers 1,000 ml 50 @ 20 mls/hr IV .Q24H SHUN Rx#:[id number] Propofol 1,000 mg In 100 15.87 57.057 114.438 ml @ Titrate IV .Q0M SHUN Rx#:[id number] ceFAZolin 3 gm In Sodium 100 Chloride 0.9% 100 ml @ 100 mls/hr IVPB Q8H SHUN Rx#:[id number] Other 60 Output: Chest Tube Drainage 486 134 50 Chest Tube Left Lateral 124 18 10 Chest Chest Tube Mediastinal 362 116 40 Drainage 50 Right Lower Calf 50 Urine 725 408 175 Other: Voiding Method Indwelling Catheter Indwelling Catheter Indwelling Catheter # Bowel Movements 0 0 Weight 129.6 kg ABP, PAP, CO, CI - Last 8 Hours Arterial Blood Pressure 115/52 Arterial Blood Pressure 116/53 Arterial Blood Pressure 123/60 Arterial Blood Pressure 109/57 Arterial Blood Pressure 110/55 Arterial Blood Pressure 110/57 Arterial Blood Pressure 113/59 Arterial Blood Pressure 107/55 Arterial Blood Pressure 105/55 Arterial Blood Pressure 108/53 Arterial Blood Pressure 103/54 Pulmonary Artery Pressure 30/11 Pulmonary Artery Pressure 30/13 Pulmonary Artery Pressure 30/14 Pulmonary Artery Pressure 31/14 Pulmonary Artery Pressure 38/20 Pulmonary Artery Pressure 29/17 Pulmonary Artery Pressure 32/17 Pulmonary Artery Pressure 30/16 Pulmonary Artery Pressure 30/18 Pulmonary Artery Pressure 33/18 Pulmonary Artery Pressure 31/17 Cardiac Output 6.6 Cardiac Output 5.9 Cardiac Output 5.9 Cardiac Output 5.9 Cardiac Output 5.9 Cardiac Output 5.9 Cardiac Output 5.9 Cardiac Index 2.7 Cardiac Index 2.4 General: The patient is awake and alert, in no distress, and does not appear acutely ill. Skin: Skin is warm and dry and no rashes or lesions are noted. Eye: Pupils are equal, round and reactive to light, extra-ocular movements are intact; there is normal conjunctiva bilaterally. Ears, nose, mouth and throat: There are moist mucous membranes and no oral lesions. Neck: The neck is supple, there is no tenderness or JVD. Cardiovascular: There is a regular rate and rhythm. No murmur, rub or gallop is appreciated. Respiratory: Lungs are clear to auscultation, respirations are non-labored, breath sounds are equal. Decreased air entry at the bases bilaterally Gastrointestinal: Soft, non-distended, non-tender abdomen without masses or organomegaly noted. There is no rebound or guarding present. Bowel sounds are unremarkable. Back: There is no tenderness to palpation in the midline. There is no obvious deformity. Musculoskeletal: Normal ROM, no tenderness, There is no pedal edema. There is no calf tenderness or swelling. Extremities: No edema. Vascular: Femoral pulse is normal. Posterior tibial pulses are normal .Dorsalis pedis is palpable. Neurological: CN II-XII intact. There are no obvious motor or sensory deficits. Speech is normal. Psychiatric: Cooperative, appropriate mood & affect, normal judgment. Results 01/06/17 03:45 01/06/17 03:45 Cardiac Enzymes 01/05/17 01/05/17 01/06/17 Range/Units 15:05 20:50 03:45 AST 47 46 45 (17-59) U/L Coagulation 01/05/17 01/06/17 Range/Units 15:05 03:45 PT 12.2 H 11.0 (9.0-12.0) sec APTT 29.6 (22.0-30.0) sec CBC 01/05/17 01/05/17 01/05/17 Range/Units 15:05 18:00 20:50 WBC 13.8 H 14.9 H 10.8 H (3.8-10.6) k/uL RBC 2.67 L 2.63 L 2.31 L (4.30-5.90) m/uL Hgb 8.4 L D 8.2 L 7.2 L (13.0-17.5) gm/dL Hct 23.6 L 23.4 L 20.6 L (39.0-53.0) % Plt Count 112 L 147 L 114 L (150-450) k/uL 01/06/17 Range/Units 03:45 WBC 10.3 (3.8-10.6) k/uL RBC 2.18 L (4.30-5.90) m/uL Hgb 6.8 L* (13.0-17.5) gm/dL Hct 19.4 L* (39.0-53.0) % Plt Count 109 L (150-450) k/uL Comprehensive Metabolic Panel 01/05/17 01/05/17 01/06/17 Range/Units 15:05 20:50 03:45 Sodium 142 139 138 (137-145) mmol/L Potassium 3.9 4.4 4.3 (3.5-5.1) mmol/L Chloride 107 106 106 (98-107) mmol/L Carbon Dioxide 28 23 23 (22-30) mmol/L BUN 15 14 18 (9-20) mg/dL Creatinine 0.76 0.70 1.00 (0.66-1.25) mg/dL Glucose 88 136 H 125 H (74-99) mg/dL Calcium 7.9 L 8.0 L 8.0 L (8.4-10.2) mg/dL AST 47 46 45 (17-59) U/L ALT 29 32 31 (21-72) U/L Alkaline Phosphatase 35 L 32 L 31 L (38-126) U/L Total Protein 4.6 L 4.8 L 4.8 L (6.3-8.2) g/dL Albumin 3.1 L 3.3 L 3.1 L (3.5-5.0) g/dL Current Medications Generic Name Dose Route Start Last Admin Trade Name Freq PRN Reason Stop Dose Admin Hydrocodone Bitart/Acetaminophen 2 each 01/06/17 23:59 [place] 5-325 PO Q4HR PRN Severe Pain Hydrocodone Bitart/Acetaminophen 1 each 01/06/17 23:59 [place] 5-325 PO Q4HR PRN Moderate Pain Albuterol/Ipratropium 3 ml 01/05/17 16:00 01/06/17 07:07 Duoneb 0.5 Mg-3 Mg/3 Ml Soln INHALATION 3 ml RT-Q4H SHUN Administration Albuterol/Ipratropium 3 ml 01/06/17 14:28 Duoneb 0.5 Mg-3 Mg/3 Ml Soln INHALATION RT-Q2H PRN Shortness Of Breath Or Wheezing Aspirin 325 mg 01/06/17 09:00 01/06/17 08:21 Aspirin PO 325 mg DAILY SHUN Administration Atorvastatin Calcium 40 mg 01/06/17 09:00 01/06/17 08:21 Lipitor PO 40 mg DAILY SHUN Administration Benzocaine/Menthol 1 each 01/05/17 14:37 Cepacol Lozenge MUCOUS MEM Q2H PRN Sore Throat Bisacodyl 10 mg 01/06/17 14:27 Dulcolax RECTAL DAILY PRN Constipation Cholecalciferol 2,000 unit 01/06/17 12:00 Vitamin D3 PO DAILY@1200 [facility] Clopidogrel Bisulfate 75 mg 01/06/17 09:00 01/06/17 08:21 Plavix PO 75 mg DAILY SHUN Administration Finasteride 5 mg 01/06/17 09:00 01/06/17 08:23 Proscar PO 5 mg DAILY SHUN Administration Heparin Sodium (Porcine) 5,000 unit 01/05/17 23:00 01/06/17 08:21 Heparin SQ 5,000 unit Q8HR SHUN Administration Acetaminophen 1,000 mg/ IV 100 mls @ 400 mls/hr 01/05/17 18:00 01/06/17 06:32 Solution IVPB 01/06/17 18:01 400 mls/hr Q6HR SHUN Administration Albumin Human 250 ml/ IV 250 mls @ 250 mls/hr 01/05/17 14:37 01/05/17 18:06 Solution IVPB 01/07/17 14:38 250 mls/hr Q1HR PRN Administration For Volume Calcium Gluconate 2,000 mg/ 120 mls @ 100 mls/hr 01/05/17 14:37 Sodium Chloride IVPB 01/06/17 14:38 ONCE PRN Ionized Calcium less than 4.4 Cefazolin Sodium 3 gm/ Sodium 100 mls @ 100 mls/hr 01/05/17 18:00 01/06/17 10 :01 Chloride IVPB 01/07/17 02:59 100 mls/hr Q8H SHUN Administration Clevidipine 25 mg/ IV Solution 50 mls @ 2 mls/hr 01/05/17 14:37 01/05/17 16: 09 IV Not Given .Q24H SHUN Protocol 1 MG/HR Insulin Human Regular 100 unit 101 mls @ 0 mls/hr 01/05/17 14:45 01/06/17 09: 11 / Sodium Chloride IV 5.5 mls/hr .Q0M SHUN 5.5 mls/hr Protocol Titration Per Protocol Lactated Ringer's 1,000 mls @ 20 mls/hr 01/05/17 14:37 01/05/17 16:12 Lactated Ringers IV 50 mls/hr .Q24H SHUN Administration Norepinephrine Bitartrate 4 mg 254 mls @ 0 mls/hr 01/05/17 14:37 / Sodium Chloride IV .Q0M SHUN Protocol Titrate Propofol 1,000 mg in 100 mls @ 0 mls/hr 01/05/17 14:37 01/06/17 09:05 Diprivan IV 0 mcg/kg/min .Q0M SHUN 0 mls/hr Protocol Titration Titrate Ketorolac Tromethamine 15 mg 01/06/17 12:00 Toradol IVP 01/10/17 10:56 Q6HR SHUN Magnesium Hydroxide 2,400 mg 01/06/17 14:27 Milk Of Magnesia PO BID PRN Constipation Metoclopramide HCl 10 mg 01/05/17 14:37 Reglan IVP Q4H PRN Nausea And Vomiting Metoprolol Tartrate 12.5 mg 01/06/17 09:00 01/06/17 08:21 Lopressor PO 12.5 mg BID SHUN Administration Miscellaneous Information 1 each 01/05/17 14:37 Phosphorus Per Protocol MISCELLANE DAILY PRN Per Protocol Protocol Miscellaneous Information 1 each 01/05/17 14:37 Potassium Per Protocol MISCELLANE DAILY PRN Per Protocol Protocol Miscellaneous Information 1 each 01/06/17 04:27 Magnesium Per Protocol MISCELLANE DAILY PRN Per Protocol Protocol Montelukast Sodium 10 mg 01/06/17 21:00 Singulair PO HS SHUN Morphine Sulfate 2 mg 01/05/17 14:37 01/06/17 11:02 Morphine Sulfate (Inj) IVP 2 mg Q2H PRN Administration Severe Pain Multivitamins 1 each 01/06/17 12:00 Theragran PO DAILY@1200 SHUN Mupirocin 1 applic 01/05/17 21:00 01/06/17 08:22 Bactroban Oint NASAL 01/08/17 21:01 1 applic BID SHUN Administration Ondansetron HCl 4 mg 01/05/17 14:37 Zofran IVP Q6HR PRN Nausea And Vomiting Oxycodone HCl 10 mg 01/05/17 14:37 01/06/17 09:58 Oxyir PO 01/06/17 23:59 10 mg Q4H PRN Administration Severe Pain Oxycodone HCl 5 mg 01/05/17 14:37 Oxyir PO 01/06/17 23:59 Q4H PRN Moderate Pain Pantoprazole Sodium 40 mg 01/06/17 09:00 01/06/17 08:21 Protonix IVP 40 mg DAILY SHUN Administration Senna/Docusate Sodium 2 each 01/06/17 21:00 Senokot-S PO HS SHUN Sodium Chloride 10 ml 01/05/17 21:00 01/06/17 08:22 Saline Flush IV Not Given BID SHUN Intake and Output 01/05/17 01/06/17 01/06/17 22:59 06:59 14:59 Intake Total 1169.787 669.107 434.163 Output Total 1211 592 225 Balance -41.213 77.107 209.163 Intake: IV 1092 571 146 Albumin Human 5% 250 ml 500 In Empty Bag 1 bag @ 250 mls/hr IVPB Q1HR PRN Rx#: [id number] CO/CI 220 40 30 Lactated Ringers 1,000 ml 300 450 80 @ 20 mls/hr IV .Q24H SHUN Rx#:[id number] PRESSURE BAG 72 81 36 Intake, IV Titration 77.787 98.107 228.163 Amount Insulin Regular 100 unit 11.917 41.050 13.725 In Sodium Chloride 0.9% 100 ml @ Per Protocol IV .Q0M SHUN Rx#:[id number] Lactated Ringers 1,000 ml 50 @ 20 mls/hr IV .Q24H SHUN Rx#:[id number] Propofol 1,000 mg In 100 15.87 57.057 114.438 ml @ Titrate IV .Q0M SHUN Rx#:[id number] ceFAZolin 3 gm In Sodium 100 Chloride 0.9% 100 ml @ 100 mls/hr IVPB Q8H SHUN Rx#:[id number] Other 60 Output: Chest Tube Drainage 486 134 50 Chest Tube Left Lateral 124 18 10 Chest Chest Tube Mediastinal 362 116 40 Drainage 50 Right Lower Calf 50 Urine 725 408 175 Other: Voiding Method Indwelling Catheter Indwelling Catheter Indwelling Catheter # Bowel Movements 0 0 Weight 129.6 kg 01/06/17 03:45 01/06/17 03:45 Assessment and Plan Plan: CAD status post CABG postop day #1 Patient is doing well we'll continue his medications Patient will continue aspirin Plavix metoprolol Lipitor
[2017-01-06] MEDS: KETOROLAC 30 MG/ML 1 ML VIAL IVP SCH ×2 (11:48→18:23)
--- NOTE | 2017-01-06 11:51 | P.PN ---
Subjective 61-year-old for BP obese male one of Dr. Webster's patient with past medical history of hypertension, hyperlipidemia, who had PR obstructive sleep apnea had history of colitis post ileostomy with large bowel and rectum removal in the past. Patient had apparently recurrent history of angina and chest pain had heart catheter with Dr. Hdz back in October and was diagnosed with advanced three- vessel coronary artery disease. Patient was seen cardiothoracic and plan for elective surgery he ended up going to the OR today and had a three-vessel bypass surgery. Was placed on mechanical ventilation had 2 chest tube and end up been admitted to the ICU on mechanical ventilation on conscious sedation but hemodynamically stable. Still on insulin drip 3 unit an hour for now 1 blood sugar has been holding well. 01/06: Patient was seen and evaluated today. The patient had an elective surgery yesterday with Dr. Bailey, he performed a GARCIA to the LAD, saphenous vein graft to the marginal artery, saphenous vein graft to the posterior descending artery. The patient was extubated this morning and is doing well. Chest tubes remains in place. The patient was noted to be hyperglycemic and insulin drip was increased to 5.5 units per hour. The patient is hemodynamically stable we'll encourage the incentive spirometer today. Objective - Vital Signs Vital signs: Vital Signs Temp 97.7 F 01/05/17 07:09 Pulse 91 01/06/17 11:00 Resp 23 01/06/17 11:00 BP 101/61 01/06/17 05:30 Pulse Ox 91 L 01/06/17 11:00 Intake & Output 01/05/17 01/06/17 01/06/17 18:59 06:59 18:59 Intake Total 1001.85 900.044 434.163 Output Total 2734 1004 225 Balance -1732.15 -103.956 209.163 Weight 129.6 kg Intake: IV 938 788 146 Albumin Human 5% 250 ml 500 In Empty Bag 1 bag @ 250 mls/hr IVPB Q1HR PRN Rx#: [id number] CO/CI 180 80 30 Lactated Ringers 1,000 ml 150 600 80 @ 20 mls/hr IV .Q24H SHUN Rx#:[id number] PRESSURE BAG 45 108 36 Intake, IV Titration 63.85 112.044 228.163 Amount Insulin Regular 100 unit 2.55 50.417 13.725 In Sodium Chloride 0.9% 100 ml @ Per Protocol IV .Q0M SHUN Rx#:[id number] Lactated Ringers 1,000 ml 50 @ 20 mls/hr IV .Q24H SHUN Rx#:[id number] Propofol 1,000 mg In 100 11.3 61.627 114.438 ml @ Titrate IV .Q0M SHUN Rx#:[id number] ceFAZolin 3 gm In Sodium 100 Chloride 0.9% 100 ml @ 100 mls/hr IVPB Q8H SHUN Rx#:[id number] Other 60 Output: Chest Tube Drainage 354 301 50 Chest Tube Left Lateral 97 45 10 Chest Chest Tube Mediastinal 257 256 40 Drainage 50 Right Lower Calf 50 Urine 1180 653 175 Estimated Blood Loss 1200 Other: Voiding Method Indwelling Catheter Indwelling Catheter Indwelling Catheter # Bowel Movements 0 0 ABP, PAP, CO, CI - Last Documented Arterial Blood Pressure 115/52 Pulmonary Artery Pressure 30/11 Cardiac Output 6.6 Cardiac Index 2.7 - Exam - Constitutional General appearance: no average body habitus, no cooperative, no disheveled, no mild distress, morbidly obese, no no acute distress, no obese, no severe distress, no thin - EENT Eyes: abnormal pupil, no anicteric sclerae, no disc margins sharp, no edentulous , no EOMI, no PERRLA, no fundus normal, no photophobia, no dentition normal, no poor dentition, no ptosis, no scleral icterus, normal appearance ENT: no hard of hearing, no hearing grossly normal, no NA/AT, no normal oropharynx, no other, no pharyngeal erythema, no thrush, no tonsillar exudates, no tonsillar swelling - Neck Neck: no lymphadenopathy, normal ROM, no other, no rigidity, no stridor, no thyromegaly Carotids: bilateral: upstroke normal Thyroid: bilateral: normal size - Respiratory Respiratory: left: diminished, dullness, rales, rhonchi - Cardiovascular Rhythm: regular Heart sounds: normal: S1, S2 Abnormal Heart Sounds: systolic murmur - Gastrointestinal General gastrointestinal: no absent bowel sounds, no decreased bowel sounds, distended, no hepatomegaly, no hyperactive bowel sounds, normal bowel sounds, no organomegaly, no rigid, no scaphoid, soft, no splenomegaly, no tenderness, no umbilical hernia, no ventral hernia - Integumentary Integumentary: normal, pale, rash - Neurologic Alert and orientated - Musculoskeletal Musculoskeletal: generalized weakness - Labs CBC & Chem 7: 01/06/17 03:45 01/06/17 03:45 Labs: Abnormal Lab Results - Last 24 Hours (Table) 12/30/16 01/05/17 01/05/17 Range/Units 09:20 11:57 12:26 WBC (3.8-10.6) k/uL RBC (4.30-5.90) m/uL Hgb (13.0-17.5) gm/dL Hct (39.0-53.0) % Plt Count (150-450) k/uL Neutrophils # (1.3-7.7) k/uL Lymphocytes # (1.0-4.8) k/uL PT (9.0-12.0) sec INR (<1.2) ABG pH (7.35-7.45) ABG pCO2 (35-45) mmHg ABG pO2 (83-108) mmHg ABG HCO3 (21-25) mmol/L ABG Total CO2 (19-24) mmol/L Glucose (74-99) mg/dL POC Glucose (mg/dL) 225 H 220 H (75-99) mg/dL Calcium (8.4-10.2) mg/dL Alkaline Phosphatase (38-126) U/L Total Protein (6.3-8.2) g/dL Albumin (3.5-5.0) g/dL Crossmatch See Detail 01/05/17 01/05/17 01/05/17 Range/Units 13:01 13:48 15:05 WBC 13.8 H (3.8-10.6) k/uL RBC 2.67 L (4.30-5.90) m/uL Hgb 8.4 L D (13.0-17.5) gm/dL Hct 23.6 L (39.0-53.0) % Plt Count 112 L (150-450) k/uL Neutrophils # 11.9 H (1.3-7.7) k/uL Lymphocytes # (1.0-4.8) k/uL PT (9.0-12.0) sec INR (<1.2) ABG pH (7.35-7.45) ABG pCO2 (35-45) mmHg ABG pO2 (83-108) mmHg ABG HCO3 (21-25) mmol/L ABG Total CO2 (19-24) mmol/L Glucose (74-99) mg/dL POC Glucose (mg/dL) 211 H 148 H (75-99) mg/dL Calcium (8.4-10.2) mg/dL Alkaline Phosphatase (38-126) U/L Total Protein (6.3-8.2) g/dL Albumin (3.5-5.0) g/dL Crossmatch 01/05/17 01/05/17 01/05/17 Range/Units 15:05 15:05 15:32 WBC (3.8-10.6) k/uL RBC (4.30-5.90) m/uL Hgb (13.0-17.5) gm/dL Hct (39.0-53.0) % Plt Count (150-450) k/uL Neutrophils # (1.3-7.7) k/uL Lymphocytes # (1.0-4.8) k/uL PT 12.2 H (9.0-12.0) sec INR 1.2 H (<1.2) ABG pH 7.25 L (7.35-7.45) ABG pCO2 64 H (35-45) mmHg ABG pO2 111 H (83-108) mmHg ABG HCO3 27 H (21-25) mmol/L ABG Total CO2 29 H (19-24) mmol/L Glucose (74-99) mg/dL POC Glucose (mg/dL) (75-99) mg/dL Calcium 7.9 L (8.4-10.2) mg/dL Alkaline Phosphatase 35 L (38-126) U/L Total Protein 4.6 L (6.3-8.2) g/dL Albumin 3.1 L (3.5-5.0) g/dL Crossmatch 01/05/17 01/05/17 01/05/17 Range/Units 15:46 17:01 18:00 WBC 14.9 H (3.8-10.6) k/uL RBC 2.63 L (4.30-5.90) m/uL Hgb 8.2 L (13.0-17.5) gm/dL Hct 23.4 L (39.0-53.0) % Plt Count 147 L (150-450) k/uL Neutrophils # 13.3 H (1.3-7.7) k/uL Lymphocytes # 0.8 L (1.0-4.8) k/uL PT (9.0-12.0) sec INR (<1.2) ABG pH (7.35-7.45) ABG pCO2 (35-45) mmHg ABG pO2 (83-108) mmHg ABG HCO3 (21-25) mmol/L ABG Total CO2 (19-24) mmol/L Glucose (74-99) mg/dL POC Glucose (mg/dL) 113 H 161 H (75-99) mg/dL Calcium (8.4-10.2) mg/dL Alkaline Phosphatase (38-126) U/L Total Protein (6.3-8.2) g/dL Albumin (3.5-5.0) g/dL Crossmatch 01/05/17 01/05/17 01/05/17 Range/Units 18:04 19:01 19:55 WBC (3.8-10.6) k/uL RBC (4.30-5.90) m/uL Hgb (13.0-17.5) gm/dL Hct (39.0-53.0) % Plt Count (150-450) k/uL Neutrophils # (1.3-7.7) k/uL Lymphocytes # (1.0-4.8) k/uL PT (9.0-12.0) sec INR (<1.2) ABG pH (7.35-7.45) ABG pCO2 (35-45) mmHg ABG pO2 (83-108) mmHg ABG HCO3 (21-25) mmol/L ABG Total CO2 (19-24) mmol/L Glucose (74-99) mg/dL POC Glucose (mg/dL) 150 H 150 H 145 H (75-99) mg/dL Calcium (8.4-10.2) mg/dL Alkaline Phosphatase (38-126) U/L Total Protein (6.3-8.2) g/dL Albumin (3.5-5.0) g/dL Crossmatch 01/05/17 01/05/17 01/05/17 Range/Units 20:50 20:50 20:50 WBC 10.8 H (3.8-10.6) k/uL RBC 2.31 L (4.30-5.90) m/uL Hgb 7.2 L (13.0-17.5) gm/dL Hct 20.6 L (39.0-53.0) % Plt Count 114 L (150-450) k/uL Neutrophils # 9.7 H (1.3-7.7) k/uL Lymphocytes # 0.5 L (1.0-4.8) k/uL PT (9.0-12.0) sec INR (<1.2) ABG pH (7.35-7.45) ABG pCO2 (35-45) mmHg ABG pO2 (83-108) mmHg ABG HCO3 (21-25) mmol/L ABG Total CO2 (19-24) mmol/L Glucose 136 H (74-99) mg/dL POC Glucose (mg/dL) 151 H (75-99) mg/dL Calcium 8.0 L (8.4-10.2) mg/dL Alkaline Phosphatase 32 L (38-126) U/L Total Protein 4.8 L (6.3-8.2) g/dL Albumin 3.3 L (3.5-5.0) g/dL Crossmatch 01/05/17 01/05/17 01/05/17 Range/Units 21:49 21:51 23:16 WBC (3.8-10.6) k/uL RBC (4.30-5.90) m/uL Hgb (13.0-17.5) gm/dL Hct (39.0-53.0) % Plt Count (150-450) k/uL Neutrophils # (1.3-7.7) k/uL Lymphocytes # (1.0-4.8) k/uL PT (9.0-12.0) sec INR (<1.2) ABG pH (7.35-7.45) ABG pCO2 31 L (35-45) mmHg ABG pO2 78 L (83-108) mmHg ABG HCO3 (21-25) mmol/L ABG Total CO2 (19-24) mmol/L Glucose (74-99) mg/dL POC Glucose (mg/dL) 152 H 141 H (75-99) mg/dL Calcium (8.4-10.2) mg/dL Alkaline Phosphatase (38-126) U/L Total Protein (6.3-8.2) g/dL Albumin (3.5-5.0) g/dL Crossmatch 01/05/17 01/06/17 01/06/17 Range/Units 23:56 00:56 02:04 WBC (3.8-10.6) k/uL RBC (4.30-5.90) m/uL Hgb (13.0-17.5) gm/dL Hct (39.0-53.0) % Plt Count (150-450) k/uL Neutrophils # (1.3-7.7) k/uL Lymphocytes # (1.0-4.8) k/uL PT (9.0-12.0) sec INR (<1.2) ABG pH (7.35-7.45) ABG pCO2 (35-45) mmHg ABG pO2 (83-108) mmHg ABG HCO3 (21-25) mmol/L ABG Total CO2 (19-24) mmol/L Glucose (74-99) mg/dL POC Glucose (mg/dL) 156 H 144 H 139 H (75-99) mg/dL Calcium (8.4-10.2) mg/dL Alkaline Phosphatase (38-126) U/L Total Protein (6.3-8.2) g/dL Albumin (3.5-5.0) g/dL Crossmatch 01/06/17 01/06/17 01/06/17 Range/Units 03:02 03:45 03:45 WBC (3.8-10.6) k/uL RBC 2.18 L (4.30-5.90) m/uL Hgb 6.8 L* (13.0-17.5) gm/dL Hct 19.4 L* (39.0-53.0) % Plt Count 109 L (150-450) k/uL Neutrophils # 8.8 H (1.3-7.7) k/uL Lymphocytes # 0.9 L (1.0-4.8) k/uL PT (9.0-12.0) sec INR (<1.2) ABG pH (7.35-7.45) ABG pCO2 (35-45) mmHg ABG pO2 (83-108) mmHg ABG HCO3 (21-25) mmol/L ABG Total CO2 (19-24) mmol/L Glucose 125 H (74-99) mg/dL POC Glucose (mg/dL) 145 H (75-99) mg/dL Calcium 8.0 L (8.4-10.2) mg/dL Alkaline Phosphatase 31 L (38-126) U/L Total Protein 4.8 L (6.3-8.2) g/dL Albumin 3.1 L (3.5-5.0) g/dL Crossmatch 01/06/17 01/06/17 01/06/17 Range/Units 03:54 04:54 06:12 WBC (3.8-10.6) k/uL RBC (4.30-5.90) m/uL Hgb (13.0-17.5) gm/dL Hct (39.0-53.0) % Plt Count (150-450) k/uL Neutrophils # (1.3-7.7) k/uL Lymphocytes # (1.0-4.8) k/uL PT (9.0-12.0) sec INR (<1.2) ABG pH (7.35-7.45) ABG pCO2 (35-45) mmHg ABG pO2 (83-108) mmHg ABG HCO3 (21-25) mmol/L ABG Total CO2 (19-24) mmol/L Glucose (74-99) mg/dL POC Glucose (mg/dL) 135 H 138 H 153 H (75-99) mg/dL Calcium (8.4-10.2) mg/dL Alkaline Phosphatase (38-126) U/L Total Protein (6.3-8.2) g/dL Albumin (3.5-5.0) g/dL Crossmatch 01/06/17 01/06/17 01/06/17 Range/Units 06:49 08:09 08:32 WBC (3.8-10.6) k/uL RBC (4.30-5.90) m/uL Hgb (13.0-17.5) gm/dL Hct (39.0-53.0) % Plt Count (150-450) k/uL Neutrophils # (1.3-7.7) k/uL Lymphocytes # (1.0-4.8) k/uL PT (9.0-12.0) sec INR (<1.2) ABG pH 7.46 H (7.35-7.45) ABG pCO2 28 L (35-45) mmHg ABG pO2 71 L (83-108) mmHg ABG HCO3 20 L (21-25) mmol/L ABG Total CO2 (19-24) mmol/L Glucose (74-99) mg/dL POC Glucose (mg/dL) 145 H 152 H (75-99) mg/dL Calcium (8.4-10.2) mg/dL Alkaline Phosphatase (38-126) U/L Total Protein (6.3-8.2) g/dL Albumin (3.5-5.0) g/dL Crossmatch 01/06/17 01/06/17 Range/Units 09:10 10:09 WBC (3.8-10.6) k/uL RBC (4.30-5.90) m/uL Hgb (13.0-17.5) gm/dL Hct (39.0-53.0) % Plt Count (150-450) k/uL Neutrophils # (1.3-7.7) k/uL Lymphocytes # (1.0-4.8) k/uL PT (9.0-12.0) sec INR (<1.2) ABG pH (7.35-7.45) ABG pCO2 (35-45) mmHg ABG pO2 (83-108) mmHg ABG HCO3 (21-25) mmol/L ABG Total CO2 (19-24) mmol/L Glucose (74-99) mg/dL POC Glucose (mg/dL) 143 H 139 H (75-99) mg/dL Calcium (8.4-10.2) mg/dL Alkaline Phosphatase (38-126) U/L Total Protein (6.3-8.2) g/dL Albumin (3.5-5.0) g/dL Crossmatch Assessment and Plan Plan: 1 CAD post three-vessel CABG: Stable post surgery continue to watch patient hemodynamic status, patient extubated this morning and doing well, still managed by pulmonary critical care. Still on insulin drip which will watch for any further hyperglycemia the time. 2 acute postsurgical respiratory failure as an expected procedure post open heart surgery continue to manage sent by pulmonary critical care, extubated this morning and doing well. 3 hypertension: We will Resume home meds today 4 arrhythmia stable no A. fib post surgery. 5 hyperglycemia: Continue patient on insulin drip for now. 6 COPD: Continue patient on DuoNeb. 7 hyperlipidemia: Resume Lipitor at 40 mg daily. 8 BPH: Watch for any urinary retention after surgery patient still have Adhikari catheter for now. 9 gastroparesis: Has been on Reglan and PPI resume both medication one patient is able to take oral. CODE STATUS: Full code. The above impression and plan of care have been discussed and directed by signing physician. Natalia Lara nurse practitioner acting as scribe for signing physician.
[2017-01-06] MEDS ORDERED: MULTIVITAMINS, THERA LIQUID 237 ML BOTTLE PO SCH (12:00)
[2017-01-06] MEDS: CHOLECALCIFEROL 1,000 UNIT TAB PO SCH (12:15)
[2017-01-06] MEDS: MULTIVITAMINS, THERA 1 EACH TAB PO SCH (12:16)
[2017-01-06] MEDS ORDERED: MAGNESIUM HYDROXIDE 2,400 MG/10 ML CUP PO PRN (14:27)
[2017-01-06] MEDS ORDERED: BISACODYL 10 MG SUPP RECTAL PRN (14:27)
[2017-01-06] MEDS ORDERED: IPRATROPIUM-ALBUTEROL 3 ML NEB INHALATION PRN (14:28)
[2017-01-06] MEDS: LACTATED RINGERS 1,000 ML IV SCH (14:43)
[2017-01-06] MEDS: CLEVIDIPINE BUTYRATE 25 MG in EMPTY BAG 1 BAG IV SCH (14:43)
[2017-01-06 15:54] LABS: Glucose,Whole Blood 127 mg/dL (75-99)
[2017-01-06 15:54] LABS: Glucose,Whole Blood 136 mg/dL (75-99)
[2017-01-06 15:55] LABS: Glucose,Whole Blood 131 mg/dL (75-99)
[2017-01-06 15:55] LABS: Glucose,Whole Blood 127 mg/dL (75-99)
[2017-01-06 16:12] LABS: Glucose,Whole Blood 130 mg/dL (75-99)
[2017-01-06 17:29] LABS: Glucose,Whole Blood 125 mg/dL (75-99)
[2017-01-06 18:34] LABS: Glucose,Whole Blood 132 mg/dL (75-99)
[2017-01-06 21:03] LABS: Glucose,Whole Blood 155 mg/dL (75-99)
[2017-01-06] MEDS ORDERED: HYDROcodone/APAP 5-325MG 1 EACH TAB ONE (21:12)
[2017-01-06] MEDS: SENNOSIDES-DOCUSATE SODIUM 1 EACH TAB PO SCH (21:18)
[2017-01-06] MEDS: MONTELUKAST 10 MG TAB PO SCH (21:20)
[2017-01-06 22:04] LABS: Glucose,Whole Blood 128 mg/dL (75-99)
[2017-01-06 23:03] LABS: Glucose,Whole Blood 137 mg/dL (75-99)
[2017-01-06] MEDS ORDERED: HYDROcodone/APAP 5-325MG 1 EACH TAB PO PRN (23:59)
[2017-01-07] MEDS: KETOROLAC 30 MG/ML 1 ML VIAL IVP SCH ×4 (00:08→19:41)
[2017-01-07] MEDS: HEPARIN SODIUM,PORCINE 5,000 UNIT/ML 1 ML VIAL SQ SCH ×3 (00:08→18:55)
[2017-01-07 00:15] LABS: Glucose,Whole Blood 87 mg/dL (75-99)
[2017-01-07 01:07] LABS: Glucose,Whole Blood 119 mg/dL (75-99)
[2017-01-07] MEDS: INSULIN REGULAR 100 UNIT in SODIUM CHLORIDE 0.9% 100 ML IV SCH (01:13)
[2017-01-07 02:27] LABS: Glucose,Whole Blood 134 mg/dL (75-99)
[2017-01-07] MEDS: HYDROcodone/APAP 5-325MG 1 EACH TAB PO PRN ×3 (02:38→18:47)
[2017-01-07 03:12] LABS: Glucose,Whole Blood 115 mg/dL (75-99)
[2017-01-07 04:35] LABS: Glucose,Whole Blood 115 mg/dL (75-99)
[2017-01-07 05:21] LABS: Glucose,Whole Blood 111 mg/dL (75-99)
[2017-01-07 06:04] LABS: Glucose,Whole Blood 129 mg/dL (75-99)
[2017-01-07 06:49] LABS: Basophils % (A) 0 %; CH 31.3; CHCM 33.9; Eosinophils # (A) 0.2 k/uL (0-0.7); Eosinophils % (A) 2 %; HDW 2.81; Luc # (Auto) 0.11; Luc % (Auto) 1; Lymphocytes # (A) 1.3 k/uL (1.0-4.8); Lymphocytes % (A) 14 %; MCH 32.8 pg (25.0-35.0); MCHC 35.4 g/dL (31.0-37.0); MCV 92.9 fL (80.0-100.0); Mean Platelet Volume 9.1; Monocytes # (A) 0.4 k/uL (0-1.0); Monocytes % (A) 4 %; Neutrophils # (A) 7.8 k/uL (1.3-7.7); Neutrophils % (A) 80 %; RBC 1.67 m/uL (4.30-5.90); RDW 14.2 % (11.5-15.5); WBC 9.8 k/uL (3.8-10.6); WBC (Perox) 10.18
[2017-01-07 06:58] LABS: HCT 15.5 % (39.0-53.0); HGB 5.5 gm/dL (13.0-17.5)
[2017-01-07 07:00] LABS: Partial Thromboplastin Time 22.6 sec (22.0-30.0)
[2017-01-07 07:06] LABS: Ionized Calcium 4.7 mg/dL (4.5-5.3)
[2017-01-07 07:08] LABS: Glucose,Whole Blood 108 mg/dL (75-99)
[2017-01-07 07:08] LABS: ALT 30 U/L (21-72); AST 41 U/L (17-59); Alkaline Phosphatase 38 U/L (38-126); Anion Gap 8 mmol/L; Blood Urea Nitrogen 28 mg/dL (9-20); Carbon Dioxide 27 mmol/L (22-30); Chloride 106 mmol/L (98-107); Glucose 104 mg/dL (74-99); Magnesium 2.5 mg/dL (1.6-2.3); Non-African American GFR(MDRD) >60 (>60 ml/min/1.73 sqM); Phosphorous 2.7 mg/dL (2.5-4.5); Potassium 4.1 mmol/L (3.5-5.1); Sodium 141 mmol/L (137-145); Total Bilirubin 0.5 mg/dL (0.2-1.3); Total Protein 4.9 g/dL (6.3-8.2)
--- NOTE | 2017-01-07 07:46 | XR ---
EXAMINATION TYPE: XR chest 1V portable DATE OF EXAM: 01/07/2017 COMPARISON: Prior chest x-ray 01/06/2017 HISTORY: Postop cardiac surgery TECHNIQUE: Single frontal view of the chest is obtained. FINDINGS: There is been interval removal of the endotracheal and NG tube. Left jugular central venou s catheter has been removed. Left-sided chest tube, mediastinal drain remain in place. Patient is rot ated. No sizable pneumothorax or pleural effusion. Patchy basilar density persists. Patient is post m edian sternotomy and there are overlying cardiac leads. IMPRESSION: Interval extubation, basilar atelectasis persists.
[2017-01-07 07:54] LABS: Glucose,Whole Blood 128 mg/dL (75-99)
[2017-01-07] MEDS: CHOLECALCIFEROL 1,000 UNIT TAB PO SCH (08:15)
[2017-01-07] MEDS: MUPIROCIN 2% OINT 22 GM TUBE NASAL SCH ×2 (08:15→21:13)
[2017-01-07] MEDS: PANTOPRAZOLE 40 MG/10 ML VIAL IVP SCH (08:15)
[2017-01-07] MEDS: ceFAZolin 3 GM in SODIUM CHLORIDE 0.9% 100 ML IVPB SCH (08:15)
[2017-01-07] MEDS: METOPROLOL TARTRATE 12.5 MG TAB PO SCH ×2 (08:15→21:12)
[2017-01-07] MEDS: CLOPIDOGREL 75 MG TAB PO SCH (08:16)
[2017-01-07] MEDS: ATORVASTATIN 40 MG TAB PO SCH (08:16)
[2017-01-07] MEDS: FINASTERIDE 5 MG TAB PO SCH (08:16)
[2017-01-07] MEDS: ASPIRIN 325 MG TAB PO SCH (08:16)
--- NOTE | 2017-01-07 08:42 | P.PN ---
<Claudia Acuna - Last Filed: 01/07/17 08:33> Subjective Principal diagnosis: Coronary artery disease. Hypertension. Hyperlipidemia. History of myocardial infarction. History of BPH. History of ulcerative colitis with an ileostomy. Distant history of dialysis for 5 days secondary to elevated potassium. Previous tobacco dependence. Family history of myocardial infarction at a young age. COPD. History of gastroparesis. Obesity. POD #2 elective coronary artery bypass grafting 3 vessels, left internal mammary artery to left anterior descending artery, reverse saphenous vein graft to the obtuse marginal artery, reverse saphenous vein graft to the posterior descending artery. Endoscopic vein harvest, bilateral greater saphenous veins. Epi-aortic ultrasound. Intraoperative transesophageal echocardiogram. Closure of sternum using titanium cable system. Postoperative acute blood loss anemia, expected outcome of surgery. Patient currently sitting up in the chair in no acute distress. Denies pain, shortness of breath. Was extubated successfully yesterday. Objective - Vital Signs Vital signs: Vital Signs Temp 97.8 F 01/07/17 08:19 Pulse 80 01/07/17 08:19 Resp 18 01/07/17 08:19 BP 95/50 01/07/17 08:19 Pulse Ox 96 01/07/17 08:19 Intake & Output 01/06/17 01/07/17 01/07/17 18:59 06:59 18:59 Intake Total 1082.305 300.951 23.675 Output Total 950 905 80 Balance 132.305 -604.049 -56.325 Weight 129.6 kg Intake: IV 377 220 20 CO/CI 50 Lactated Ringers 1,000 ml 240 220 20 @ 20 mls/hr IV .Q24H [facility] Rx#:[id number] PRESSURE BAG 87 Intake, IV Titration 545.305 80.951 3.675 Amount ACETAMINOPHEN IV (For NPO 200 ) 1,000 mg In Empty Bag 1 bag @ 400 mls/hr IVPB Q6HR [facility] Rx#:[id number] Insulin Regular 100 unit 30.867 80.951 3.675 In Sodium Chloride 0.9% 100 ml @ Per Protocol IV .Q0M [facility] Rx#:[id number] Propofol 1,000 mg In 100 114.438 ml @ Titrate IV .Q0M [facility] Rx#:[id number] ceFAZolin 3 gm In Sodium 200 Chloride 0.9% 100 ml @ 100 mls/hr IVPB Q8H [facility] Rx#:[id number] Oral 100 Blood Product 0 Rc As-3 Unit 0 [id number] Other 60 Output: Chest Tube Drainage 290 280 30 Chest Tube Left Lateral 100 80 20 Chest Chest Tube Mediastinal 190 200 10 Drainage 10 25 Left Lower Calf 0 25 Right Lower Calf 10 0 Urine 650 600 50 Other: Voiding Method Indwelling Catheter Indwelling Catheter # Bowel Movements 0 0 ABP, PAP, CO, CI - Last Documented Arterial Blood Pressure 136/51 Pulmonary Artery Pressure 28/12 Cardiac Output 8.5 Cardiac Index 3.5 - Constitutional General appearance: Present: cooperative, no acute distress - Respiratory Details: Lungs sounds diminished bilaterally. Respirations even, nonlabored. Currently on 6 L nasal cannula with oxygen saturation 95%. Able to achieve 1000 mL on his incentive spirometry. Mediastinal chest tube to -20 cm wall suction, 70 mL serosanguineous drainage overnight, 280 mL in the last 24 hours. Left pleural chest tube to -20 cm wall suction, 20 mL of serosanguineous drainage overnight, 180 mL in the last 24 hours. No air leaks present. - Cardiovascular Details: S1, S2 present. Regular rate and rhythm, sinus rhythm on telemetry. Epicardial pacemaker wires present, connected to generator, VVI mode with backup rate 30 bpm. Sternum stable. Heart hugger placed patient demonstrating appropriate use. Palpable pulses bilaterally. Trace bilateral lower extremity edema present. Teds/SCDs present. - Gastrointestinal Gastrointestinal Comment(s): Abdomen soft, nontender, nondistended. Hypoactive bowel sounds 4 quadrants. Right lower quadrant ileostomy present. Tolerating diet. - Genitourinary Genitourinary Comment(s): Adhikari present draining clear, yellow urine. Output 40-60 mL/h overnight with 2 hours of lower urinary output of 10-15 mL per hour. - Integumentary Integumentary Comment(s): Anterior chest incision well approximated and covered with dry intact dressing. Bilateral lower extremity EVH sites well approximated, PORFIRIO drains present with minimal drainage. - Neurologic Neurologic: Present: CNII-XII intact - Musculoskeletal Musculoskeletal: Present: generalized weakness, strength equal bilaterally - Psychiatric Psychiatric: Present: A&O x's 3, appropriate affect, intact judgment & insight - Allied health notes Allied health notes reviewed: nursing - Labs CBC & Chem 7: 01/07/17 06:35 01/07/17 06:35 Labs: Abnormal Lab Results - Last 24 Hours (Table) 12/30/16 01/06/17 01/06/17 Range/Units 09:20 08:32 09:10 RBC (4.30-5.90) m/uL Hgb (13.0-17.5) gm/dL Hct (39.0-53.0) % Plt Count (150-450) k/uL Neutrophils # (1.3-7.7) k/uL ABG pH 7.46 H (7.35-7.45) ABG pCO2 28 L (35-45) mmHg ABG pO2 71 L (83-108) mmHg ABG HCO3 20 L (21-25) mmol/L BUN (9-20) mg/dL Glucose (74-99) mg/dL POC Glucose (mg/dL) 143 H (75-99) mg/dL Calcium (8.4-10.2) mg/dL Magnesium (1.6-2.3) mg/dL Total Protein (6.3-8.2) g/dL Albumin (3.5-5.0) g/dL Crossmatch See Detail 01/06/17 01/06/17 01/06/17 Range/Units 10:09 11:06 12:14 RBC (4.30-5.90) m/uL Hgb (13.0-17.5) gm/dL Hct (39.0-53.0) % Plt Count (150-450) k/uL Neutrophils # (1.3-7.7) k/uL ABG pH (7.35-7.45) ABG pCO2 (35-45) mmHg ABG pO2 (83-108) mmHg ABG HCO3 (21-25) mmol/L BUN (9-20) mg/dL Glucose (74-99) mg/dL POC Glucose (mg/dL) 139 H 136 H 127 H (75-99) mg/dL Calcium (8.4-10.2) mg/dL Magnesium (1.6-2.3) mg/dL Total Protein (6.3-8.2) g/dL Albumin (3.5-5.0) g/dL Crossmatch 01/06/17 01/06/17 01/06/17 Range/Units 13:33 14:40 16:10 RBC (4.30-5.90) m/uL Hgb (13.0-17.5) gm/dL Hct (39.0-53.0) % Plt Count (150-450) k/uL Neutrophils # (1.3-7.7) k/uL ABG pH (7.35-7.45) ABG pCO2 (35-45) mmHg ABG pO2 (83-108) mmHg ABG HCO3 (21-25) mmol/L BUN (9-20) mg/dL Glucose (74-99) mg/dL POC Glucose (mg/dL) 127 H 131 H 130 H (75-99) mg/dL Calcium (8.4-10.2) mg/dL Magnesium (1.6-2.3) mg/dL Total Protein (6.3-8.2) g/dL Albumin (3.5-5.0) g/dL Crossmatch 01/06/17 01/06/17 01/06/17 Range/Units 17:26 18:31 21:01 RBC (4.30-5.90) m/uL Hgb (13.0-17.5) gm/dL Hct (39.0-53.0) % Plt Count (150-450) k/uL Neutrophils # (1.3-7.7) k/uL ABG pH (7.35-7.45) ABG pCO2 (35-45) mmHg ABG pO2 (83-108) mmHg ABG HCO3 (21-25) mmol/L BUN (9-20) mg/dL Glucose (74-99) mg/dL POC Glucose (mg/dL) 125 H 132 H 155 H (75-99) mg/dL Calcium (8.4-10.2) mg/dL Magnesium (1.6-2.3) mg/dL Total Protein (6.3-8.2) g/dL Albumin (3.5-5.0) g/dL Crossmatch 01/06/17 01/06/17 01/07/17 Range/Units 21:58 23:02 01:05 RBC (4.30-5.90) m/uL Hgb (13.0-17.5) gm/dL Hct (39.0-53.0) % Plt Count (150-450) k/uL Neutrophils # (1.3-7.7) k/uL ABG pH (7.35-7.45) ABG pCO2 (35-45) mmHg ABG pO2 (83-108) mmHg ABG HCO3 (21-25) mmol/L BUN (9-20) mg/dL Glucose (74-99) mg/dL POC Glucose (mg/dL) 128 H 137 H 119 H (75-99) mg/dL Calcium (8.4-10.2) mg/dL Magnesium (1.6-2.3) mg/dL Total Protein (6.3-8.2) g/dL Albumin (3.5-5.0) g/dL Crossmatch 01/07/17 01/07/17 01/07/17 Range/Units 02:25 03:11 04:33 RBC (4.30-5.90) m/uL Hgb (13.0-17.5) gm/dL Hct (39.0-53.0) % Plt Count (150-450) k/uL Neutrophils # (1.3-7.7) k/uL ABG pH (7.35-7.45) ABG pCO2 (35-45) mmHg ABG pO2 (83-108) mmHg ABG HCO3 (21-25) mmol/L BUN (9-20) mg/dL Glucose (74-99) mg/dL POC Glucose (mg/dL) 134 H 115 H 115 H (75-99) mg/dL Calcium (8.4-10.2) mg/dL Magnesium (1.6-2.3) mg/dL Total Protein (6.3-8.2) g/dL Albumin (3.5-5.0) g/dL Crossmatch 01/07/17 01/07/17 01/07/17 Range/Units 05:19 06:03 06:35 RBC 1.67 L (4.30-5.90) m/uL Hgb 5.5 L* (13.0-17.5) gm/dL Hct 15.5 L* (39.0-53.0) % Plt Count 104 L (150-450) k/uL Neutrophils # 7.8 H (1.3-7.7) k/uL ABG pH (7.35-7.45) ABG pCO2 (35-45) mmHg ABG pO2 (83-108) mmHg ABG HCO3 (21-25) mmol/L BUN (9-20) mg/dL Glucose (74-99) mg/dL POC Glucose (mg/dL) 111 H 129 H (75-99) mg/dL Calcium (8.4-10.2) mg/dL Magnesium (1.6-2.3) mg/dL Total Protein (6.3-8.2) g/dL Albumin (3.5-5.0) g/dL Crossmatch 01/07/17 01/07/17 01/07/17 Range/Units 06:35 07:06 07:52 RBC (4.30-5.90) m/uL Hgb (13.0-17.5) gm/dL Hct (39.0-53.0) % Plt Count (150-450) k/uL Neutrophils # (1.3-7.7) k/uL ABG pH (7.35-7.45) ABG pCO2 (35-45) mmHg ABG pO2 (83-108) mmHg ABG HCO3 (21-25) mmol/L BUN 28 H (9-20) mg/dL Glucose 104 H (74-99) mg/dL POC Glucose (mg/dL) 108 H 128 H (75-99) mg/dL Calcium 8.0 L (8.4-10.2) mg/dL Magnesium 2.5 H (1.6-2.3) mg/dL Total Protein 4.9 L (6.3-8.2) g/dL Albumin 3.0 L (3.5-5.0) g/dL Crossmatch - Imaging and Cardiology Chest x-ray: report reviewed, image reviewed Assessment and Plan (1) Coronary artery disease Status: Acute (2) Hypertension Status: Acute (3) Hyperlipidemia Status: Acute (4) Previous myocardial infarction older than 8 weeks Status: Acute (5) BPH (benign prostatic hyperplasia) Status: Acute (6) Ulcerative colitis Status: Acute (7) Status post ileostomy Status: Acute (8) Tobacco dependence in remission Status: Acute (9) Family history of early CAD Status: Acute (10) COPD (chronic obstructive pulmonary disease) Status: Acute (11) Gastroparesis Status: Acute Plan: 1. Continue aspirin, statin, Plavix, heparin subcu, beta ronni. Will maximize beta ronni therapy as tolerated. 2. Wean O2 as tolerated. Encourage incentive spirometry use. 3. GI/DVT prophylaxis. 4. Will transfuse 2 units packed red blood cells today. 5. Will monitor daily labs, chest x-rays. 6. Insulin management per internal medicine service. 7. Increase activity as tolerated. Physical therapy to follow. 8. Will discontinue Adhikari catheter today. 9. More recommendations as patient progresses. Time with Patient: Greater than 30 <Neal Bailey - Last Filed: 01/07/17 12:30> Objective - Vital Signs Vital signs: Vital Signs Temp 97.8 F 01/07/17 10:47 Pulse 81 01/07/17 11:00 Resp 17 01/07/17 11:00 BP 94/57 01/07/17 11:00 Pulse Ox 97 01/07/17 11:00 Intake & Output 01/06/17 01/07/17 01/07/17 18:59 06:59 18:59 Intake Total 1082.305 300.951 413.675 Output Total 950 905 270 Balance 132.305 -604.049 143.675 Weight 129.6 kg Intake: IV 377 220 100 CO/CI 50 Lactated Ringers 1,000 ml 240 220 100 @ 20 mls/hr IV .Q24H [facility] Rx#:[id number] PRESSURE BAG 87 Intake, IV Titration 545.305 80.951 3.675 Amount ACETAMINOPHEN IV (For NPO 200 ) 1,000 mg In Empty Bag 1 bag @ 400 mls/hr IVPB Q6HR [facility] Rx#:[id number] Insulin Regular 100 unit 30.867 80.951 3.675 In Sodium Chloride 0.9% 100 ml @ Per Protocol IV .Q0M [facility] Rx#:[id number] Propofol 1,000 mg In 100 114.438 ml @ Titrate IV .Q0M [facility] Rx#:[id number] ceFAZolin 3 gm In Sodium 200 Chloride 0.9% 100 ml @ 100 mls/hr IVPB Q8H [facility] Rx#:[id number] Oral 100 Blood Product 310 Rc As-3 Unit 310 [id number] Other 60 Output: Chest Tube Drainage 290 280 60 Chest Tube Left Lateral 100 80 40 Chest Chest Tube Mediastinal 190 200 20 Drainage 10 25 Left Lower Calf 0 25 Right Lower Calf 10 0 Urine 650 600 210 Other: Voiding Method Indwelling Catheter Indwelling Catheter Indwelling Catheter # Bowel Movements 0 0 ABP, PAP, CO, CI - Last Documented Arterial Blood Pressure 136/51 Pulmonary Artery Pressure 28/12 Cardiac Output 8.5 Cardiac Index 3.5 - Labs CBC & Chem 7: 01/07/17 06:35 01/07/17 06:35 Labs: Abnormal Lab Results - Last 24 Hours (Table) 12/30/16 01/06/17 01/06/17 Range/Units 09:20 11:06 12:14 RBC (4.30-5.90) m/uL Hgb (13.0-17.5) gm/dL Hct (39.0-53.0) % Plt Count (150-450) k/uL Neutrophils # (1.3-7.7) k/uL BUN (9-20) mg/dL Glucose (74-99) mg/dL POC Glucose (mg/dL) 136 H 127 H (75-99) mg/dL Calcium (8.4-10.2) mg/dL Magnesium (1.6-2.3) mg/dL Total Protein (6.3-8.2) g/dL Albumin (3.5-5.0) g/dL Crossmatch See Detail 01/06/17 01/06/17 01/06/17 Range/Units 13:33 14:40 16:10 RBC (4.30-5.90) m/uL Hgb (13.0-17.5) gm/dL Hct (39.0-53.0) % Plt Count (150-450) k/uL Neutrophils # (1.3-7.7) k/uL BUN (9-20) mg/dL Glucose (74-99) mg/dL POC Glucose (mg/dL) 127 H 131 H 130 H (75-99) mg/dL Calcium (8.4-10.2) mg/dL Magnesium (1.6-2.3) mg/dL Total Protein (6.3-8.2) g/dL Albumin (3.5-5.0) g/dL Crossmatch 01/06/17 01/06/17 01/06/17 Range/Units 17:26 18:31 21:01 RBC (4.30-5.90) m/uL Hgb (13.0-17.5) gm/dL Hct (39.0-53.0) % Plt Count (150-450) k/uL Neutrophils # (1.3-7.7) k/uL BUN (9-20) mg/dL Glucose (74-99) mg/dL POC Glucose (mg/dL) 125 H 132 H 155 H (75-99) mg/dL Calcium (8.4-10.2) mg/dL Magnesium (1.6-2.3) mg/dL Total Protein (6.3-8.2) g/dL Albumin (3.5-5.0) g/dL Crossmatch 01/06/17 01/06/17 01/07/17 Range/Units 21:58 23:02 01:05 RBC (4.30-5.90) m/uL Hgb (13.0-17.5) gm/dL Hct (39.0-53.0) % Plt Count (150-450) k/uL Neutrophils # (1.3-7.7) k/uL BUN (9-20) mg/dL Glucose (74-99) mg/dL POC Glucose (mg/dL) 128 H 137 H 119 H (75-99) mg/dL Calcium (8.4-10.2) mg/dL Magnesium (1.6-2.3) mg/dL Total Protein (6.3-8.2) g/dL Albumin (3.5-5.0) g/dL Crossmatch 01/07/17 01/07/17 01/07/17 Range/Units 02:25 03:11 04:33 RBC (4.30-5.90) m/uL Hgb (13.0-17.5) gm/dL Hct (39.0-53.0) % Plt Count (150-450) k/uL Neutrophils # (1.3-7.7) k/uL BUN (9-20) mg/dL Glucose (74-99) mg/dL POC Glucose (mg/dL) 134 H 115 H 115 H (75-99) mg/dL Calcium (8.4-10.2) mg/dL Magnesium (1.6-2.3) mg/dL Total Protein (6.3-8.2) g/dL Albumin (3.5-5.0) g/dL Crossmatch 01/07/17 01/07/17 01/07/17 Range/Units 05:19 06:03 06:35 RBC 1.67 L (4.30-5.90) m/uL Hgb 5.5 L* (13.0-17.5) gm/dL Hct 15.5 L* (39.0-53.0) % Plt Count 104 L (150-450) k/uL Neutrophils # 7.8 H (1.3-7.7) k/uL BUN (9-20) mg/dL Glucose (74-99) mg/dL POC Glucose (mg/dL) 111 H 129 H (75-99) mg/dL Calcium (8.4-10.2) mg/dL Magnesium (1.6-2.3) mg/dL Total Protein (6.3-8.2) g/dL Albumin (3.5-5.0) g/dL Crossmatch 01/07/17 01/07/17 01/07/17 Range/Units 06:35 07:06 07:52 RBC (4.30-5.90) m/uL Hgb (13.0-17.5) gm/dL Hct (39.0-53.0) % Plt Count (150-450) k/uL Neutrophils # (1.3-7.7) k/uL BUN 28 H (9-20) mg/dL Glucose 104 H (74-99) mg/dL POC Glucose (mg/dL) 108 H 128 H (75-99) mg/dL Calcium 8.0 L (8.4-10.2) mg/dL Magnesium 2.5 H (1.6-2.3) mg/dL Total Protein 4.9 L (6.3-8.2) g/dL Albumin 3.0 L (3.5-5.0) g/dL Crossmatch 01/07/17 01/07/17 01/07/17 Range/Units 09:05 10:51 12:07 RBC (4.30-5.90) m/uL Hgb (13.0-17.5) gm/dL Hct (39.0-53.0) % Plt Count (150-450) k/uL Neutrophils # (1.3-7.7) k/uL BUN (9-20) mg/dL Glucose (74-99) mg/dL POC Glucose (mg/dL) 115 H 134 H 177 H (75-99) mg/dL Calcium (8.4-10.2) mg/dL Magnesium (1.6-2.3) mg/dL Total Protein (6.3-8.2) g/dL Albumin (3.5-5.0) g/dL Crossmatch Assessment and Plan Plan: The patient was seen and examined. I agree with the above assessment and plan. The patient was transfused 1 unit of packed RBCs this morning followed by Catina. Otherwise we will continue to wean his oxygen. He will need aggressive pulmonary toilet and encouragement with incentive spirometry. He remains on low -dose beta ronni. We will remove his mediastinal chest tubes and Adhikari catheter but keep his left pleural drain. We will assist him with ambulation. Possible transfer to [facility] care later this afternoon.
[2017-01-07 09:08] LABS: Glucose,Whole Blood 115 mg/dL (75-99)
--- NOTE | 2017-01-07 10:11 | P.PN ---
Subjective This is a very pleasant 61-year-old gentleman who follows with Dr. Webster as his primary care physician. He has a history of hypertension, hyperlipidemia, coronary artery disease, obstructive sleep apnea, colitis status post with subtotal colectomy with ileostomy. He had undergone cardiac catheterization by Dr. Hdz on 11/18/2016 for recurrent angina. He was found to have advanced triple-vessel disease and was recommended coronary artery bypass grafting. He presented here yesterday for an elective surgery with Dr. Bailey. This is postoperative day #1. He performed a GARCIA to the LAD, saphenous vein graft to the obtuse marginal artery, saphenous vein graft to the posterior descending artery. Presently he remains intubated on the mechanical ventilator. Assist control of 20, tidal volume 550, FiO2 40% and a PEEP of 5. Morning blood gases reveal a pO2 of 71, pCO2 of 28, pH 7.46. He was extubated earlier because he did not have a cuff leak. He has been sedated with the program. He isn't on a insulin drip at 5.5 units per hour. Lactated Ringer at 50 MLS per hour. No other drips. His cardiac index is 2.7. PA pressures 30/14, CVP 9. Urine output adequate at 40-60 mL's per hour. Chest tubes remain in place mediastinal 2, left pleural. Chest x-ray shows some bibasilar atelectasis left greater than right. He does have a known left upper lobe calcified nodule that's been present and stable since 2014. No leukocytosis. Hemoglobin 6.8. Platelet count 109,000. Electrolytes and creatinine stable. The patient is seen again today 01/07/2017 in follow-up in the intensive care unit. He is currently up in the chair at the bedside. He is doing well. He denies any worsening shortness of breath, cough or congestion. He is working well at the incentive spirometer. His chest x-ray continues to show some basilar atelectasis. Chest tubes remain in place. No sizable pneumothorax. He is maintaining good O2 saturations in the mid to upper 90s on 6 L/m per nasal cannula. He's been afebrile. He did have a drop in his hemoglobin to 5.5. He is receiving 1 unit of packed red blood cells. Electrolytes and renal function are stable. Objective - Vital Signs Vital signs: Vital Signs Temp 98.4 F 01/07/17 08:59 Pulse 84 01/07/17 08:59 Resp 18 01/07/17 08:59 BP 93/50 01/07/17 08:59 Pulse Ox 95 01/07/17 08:59 Intake & Output 01/06/17 01/07/17 01/07/17 18:59 06:59 18:59 Intake Total 1082.305 300.951 63.675 Output Total 950 905 210 Balance 132.305 -604.049 -146.325 Weight 129.6 kg Intake: IV 377 220 60 CO/CI 50 Lactated Ringers 1,000 ml 240 220 60 @ 20 mls/hr IV .Q24H [facility] Rx#:[id number] PRESSURE BAG 87 Intake, IV Titration 545.305 80.951 3.675 Amount ACETAMINOPHEN IV (For NPO 200 ) 1,000 mg In Empty Bag 1 bag @ 400 mls/hr IVPB Q6HR [facility] Rx#:[id number] Insulin Regular 100 unit 30.867 80.951 3.675 In Sodium Chloride 0.9% 100 ml @ Per Protocol IV .Q0M [facility] Rx#:[id number] Propofol 1,000 mg In 100 114.438 ml @ Titrate IV .Q0M [facility] Rx#:[id number] ceFAZolin 3 gm In Sodium 200 Chloride 0.9% 100 ml @ 100 mls/hr IVPB Q8H [facility] Rx#:[id number] Oral 100 Blood Product 0 Rc As-3 Unit 0 [id number] Other 60 Output: Chest Tube Drainage 290 280 60 Chest Tube Left Lateral 100 80 40 Chest Chest Tube Mediastinal 190 200 20 Drainage 10 25 Left Lower Calf 0 25 Right Lower Calf 10 0 Urine 650 600 150 Other: Voiding Method Indwelling Catheter Indwelling Catheter # Bowel Movements 0 0 ABP, PAP, CO, CI - Last Documented Arterial Blood Pressure 136/51 Pulmonary Artery Pressure 28/12 Cardiac Output 8.5 Cardiac Index 3.5 - Exam GENERAL EXAM: Awake, alert. Fairly comfortable in no apparent distress. HEAD: Normocephalic. EYES: Normal reaction of pupils, equal size. NOSE: Clear with pink turbinates. THROAT: Endotracheal, gastric tube secured in place NECK: No masses, no JVD. Left IJ [place] in place. CHEST: General dressing dry and intact. Mediastinal and left pleural chest tubes in place. Pacemaker wires in place. LUNGS: Equal air entry with faint crackles in the posterior bases. CVS: S1 and S2 normal with no audible murmurs, regular rhythm. ABDOMEN: No hepatosplenomegaly, normal bowel sounds, no guarding or rigidity. SPINE: No scoliosis or deformity SKIN: No rashes Extremities: There is trace peripheral edema. Bilateral PORFIRIO drains in place. JOSE hose in place. Sequential compression devices in place. Peripheral pulses are intact. - Labs CBC & Chem 7: 01/07/17 06:35 01/07/17 06:35 Labs: Abnormal Lab Results - Last 24 Hours (Table) 12/30/16 01/06/17 01/06/17 Range/Units 09:20 10:09 11:06 RBC (4.30-5.90) m/uL Hgb (13.0-17.5) gm/dL Hct (39.0-53.0) % Plt Count (150-450) k/uL Neutrophils # (1.3-7.7) k/uL BUN (9-20) mg/dL Glucose (74-99) mg/dL POC Glucose (mg/dL) 139 H 136 H (75-99) mg/dL Calcium (8.4-10.2) mg/dL Magnesium (1.6-2.3) mg/dL Total Protein (6.3-8.2) g/dL Albumin (3.5-5.0) g/dL Crossmatch See Detail 01/06/17 01/06/17 01/06/17 Range/Units 12:14 13:33 14:40 RBC (4.30-5.90) m/uL Hgb (13.0-17.5) gm/dL Hct (39.0-53.0) % Plt Count (150-450) k/uL Neutrophils # (1.3-7.7) k/uL BUN (9-20) mg/dL Glucose (74-99) mg/dL POC Glucose (mg/dL) 127 H 127 H 131 H (75-99) mg/dL Calcium (8.4-10.2) mg/dL Magnesium (1.6-2.3) mg/dL Total Protein (6.3-8.2) g/dL Albumin (3.5-5.0) g/dL Crossmatch 01/06/17 01/06/17 01/06/17 Range/Units 16:10 17:26 18:31 RBC (4.30-5.90) m/uL Hgb (13.0-17.5) gm/dL Hct (39.0-53.0) % Plt Count (150-450) k/uL Neutrophils # (1.3-7.7) k/uL BUN (9-20) mg/dL Glucose (74-99) mg/dL POC Glucose (mg/dL) 130 H 125 H 132 H (75-99) mg/dL Calcium (8.4-10.2) mg/dL Magnesium (1.6-2.3) mg/dL Total Protein (6.3-8.2) g/dL Albumin (3.5-5.0) g/dL Crossmatch 01/06/17 01/06/17 01/06/17 Range/Units 21:01 21:58 23:02 RBC (4.30-5.90) m/uL Hgb (13.0-17.5) gm/dL Hct (39.0-53.0) % Plt Count (150-450) k/uL Neutrophils # (1.3-7.7) k/uL BUN (9-20) mg/dL Glucose (74-99) mg/dL POC Glucose (mg/dL) 155 H 128 H 137 H (75-99) mg/dL Calcium (8.4-10.2) mg/dL Magnesium (1.6-2.3) mg/dL Total Protein (6.3-8.2) g/dL Albumin (3.5-5.0) g/dL Crossmatch 01/07/17 01/07/17 01/07/17 Range/Units 01:05 02:25 03:11 RBC (4.30-5.90) m/uL Hgb (13.0-17.5) gm/dL Hct (39.0-53.0) % Plt Count (150-450) k/uL Neutrophils # (1.3-7.7) k/uL BUN (9-20) mg/dL Glucose (74-99) mg/dL POC Glucose (mg/dL) 119 H 134 H 115 H (75-99) mg/dL Calcium (8.4-10.2) mg/dL Magnesium (1.6-2.3) mg/dL Total Protein (6.3-8.2) g/dL Albumin (3.5-5.0) g/dL Crossmatch 01/07/17 01/07/17 01/07/17 Range/Units 04:33 05:19 06:03 RBC (4.30-5.90) m/uL Hgb (13.0-17.5) gm/dL Hct (39.0-53.0) % Plt Count (150-450) k/uL Neutrophils # (1.3-7.7) k/uL BUN (9-20) mg/dL Glucose (74-99) mg/dL POC Glucose (mg/dL) 115 H 111 H 129 H (75-99) mg/dL Calcium (8.4-10.2) mg/dL Magnesium (1.6-2.3) mg/dL Total Protein (6.3-8.2) g/dL Albumin (3.5-5.0) g/dL Crossmatch 01/07/17 01/07/17 01/07/17 Range/Units 06:35 06:35 07:06 RBC 1.67 L (4.30-5.90) m/uL Hgb 5.5 L* (13.0-17.5) gm/dL Hct 15.5 L* (39.0-53.0) % Plt Count 104 L (150-450) k/uL Neutrophils # 7.8 H (1.3-7.7) k/uL BUN 28 H (9-20) mg/dL Glucose 104 H (74-99) mg/dL POC Glucose (mg/dL) 108 H (75-99) mg/dL Calcium 8.0 L (8.4-10.2) mg/dL Magnesium 2.5 H (1.6-2.3) mg/dL Total Protein 4.9 L (6.3-8.2) g/dL Albumin 3.0 L (3.5-5.0) g/dL Crossmatch 01/07/17 01/07/17 Range/Units 07:52 09:05 RBC (4.30-5.90) m/uL Hgb (13.0-17.5) gm/dL Hct (39.0-53.0) % Plt Count (150-450) k/uL Neutrophils # (1.3-7.7) k/uL BUN (9-20) mg/dL Glucose (74-99) mg/dL POC Glucose (mg/dL) 128 H 115 H (75-99) mg/dL Calcium (8.4-10.2) mg/dL Magnesium (1.6-2.3) mg/dL Total Protein (6.3-8.2) g/dL Albumin (3.5-5.0) g/dL Crossmatch Assessment and Plan Plan: Impression: #1 Coronary artery disease status post coronary artery bypass grafting utilizing a GARCIA to the LAD, saphenous vein grafts to the obtuse marginal and posterior descending arteries. Postoperative day #2. #2 Ventilator dependence as an expected outcome of thoracotomy. Recovered. #3 Anemia as an expected outcome of thoracotomy. #4 Hypertension, history of. #5 Hyperlipidemia. #6 Previous myocardial infarction. #7 Benign prosthetic hypertrophy. #8 Ulcerative colitis status post ileostomy. Plan: The patient was seen and evaluated by Dr. Yadav. His chest x-ray and labs were reviewed. He is again educated regarding the importance of the incentive spirometer and cough and deep breathing exercises. We'll continue to monitor him here closely in the intensive care unit. We'll continue to follow.
--- NOTE | 2017-01-07 10:45 | P.PN ---
Subjective Principal diagnosis: CAD status post CABG postop day #2 Patient has known multivessel coronary artery disease and underwent bypass surgery for the same. Today is postop day #2. Patient's perioperative course was complicated by significant blood loss. This morning the hemoglobin is around 5.5 is still has significant drainage from the chest tubes. He is going to receive blood transfusion. He is on aspirin Plavix and Lipitor. Carlos inhibitors and beta blockers are currently on hold due to hypotension Objective - Vital Signs Vital signs: Vital Signs Temp 98.4 F 01/07/17 08:59 Pulse 84 01/07/17 08:59 Resp 18 01/07/17 08:59 BP 93/50 01/07/17 08:59 Pulse Ox 95 01/07/17 08:59 Intake & Output 01/06/17 01/07/17 01/07/17 18:59 06:59 18:59 Intake Total 1082.305 300.951 63.675 Output Total 950 905 210 Balance 132.305 -604.049 -146.325 Weight 129.6 kg Intake: IV 377 220 60 CO/CI 50 Lactated Ringers 1,000 ml 240 220 60 @ 20 mls/hr IV .Q24H SHUN Rx#:[id number] PRESSURE BAG 87 Intake, IV Titration 545.305 80.951 3.675 Amount ACETAMINOPHEN IV (For NPO 200 ) 1,000 mg In Empty Bag 1 bag @ 400 mls/hr IVPB Q6HR SHUN Rx#:[id number] Insulin Regular 100 unit 30.867 80.951 3.675 In Sodium Chloride 0.9% 100 ml @ Per Protocol IV .Q0M SHUN Rx#:[id number] Propofol 1,000 mg In 100 114.438 ml @ Titrate IV .Q0M SHUN Rx#:[id number] ceFAZolin 3 gm In Sodium 200 Chloride 0.9% 100 ml @ 100 mls/hr IVPB Q8H SHUN Rx#:[id number] Oral 100 Blood Product 0 Rc As-3 Unit 0 [id number] Other 60 Output: Chest Tube Drainage 290 280 60 Chest Tube Left Lateral 100 80 40 Chest Chest Tube Mediastinal 190 200 20 Drainage 10 25 Left Lower Calf 0 25 Right Lower Calf 10 0 Urine 650 600 150 Other: Voiding Method Indwelling Catheter Indwelling Catheter Indwelling Catheter # Bowel Movements 0 0 ABP, PAP, CO, CI - Last Documented Arterial Blood Pressure 136/51 Pulmonary Artery Pressure 28/12 Cardiac Output 8.5 Cardiac Index 3.5 - Exam GENERAL: Patient is well developed and well nourished. Patient is nontoxic and well hydrated and is in no acute distress. ENT: Neck is soft and supple. No significant lymphadenopathy noted. Oropharynx clear. Moist mucous membranes. Neck has full range of motion without eliciting any pain. There is no thyroid enlargement and no masses are felt. EYES: Sclerae anicteric. PULMONARY: Unlabored respirations. Diminished air entry bilaterally CARDIOVASCULAR: First and second heart sounds are heard. S2 is normal intensity. No murmur. No gallop. No rubs. No parasternal heave. ABDOMEN: Soft and nontender with normal bowel sounds. No palpable organomegaly noted. There is no palpable pulsatile mass. NEUROLOGIC: Patient is alert and oriented x3. Cranial nerves grossly intact. No focal neurological deficit. MUSCULOSKELETAL: Normal extremities with adequate strength and full range of motion. No lower extremity swelling or edema. No calf tenderness. PSYCHIATRIC: No signs of anxiety. - Labs CBC & Chem 7: 01/07/17 06:35 01/07/17 06:35 Labs: Abnormal Lab Results - Last 24 Hours (Table) 12/30/16 01/06/17 01/06/17 Range/Units 09:20 11:06 12:14 RBC (4.30-5.90) m/uL Hgb (13.0-17.5) gm/dL Hct (39.0-53.0) % Plt Count (150-450) k/uL Neutrophils # (1.3-7.7) k/uL BUN (9-20) mg/dL Glucose (74-99) mg/dL POC Glucose (mg/dL) 136 H 127 H (75-99) mg/dL Calcium (8.4-10.2) mg/dL Magnesium (1.6-2.3) mg/dL Total Protein (6.3-8.2) g/dL Albumin (3.5-5.0) g/dL Crossmatch See Detail 01/06/17 01/06/17 01/06/17 Range/Units 13:33 14:40 16:10 RBC (4.30-5.90) m/uL Hgb (13.0-17.5) gm/dL Hct (39.0-53.0) % Plt Count (150-450) k/uL Neutrophils # (1.3-7.7) k/uL BUN (9-20) mg/dL Glucose (74-99) mg/dL POC Glucose (mg/dL) 127 H 131 H 130 H (75-99) mg/dL Calcium (8.4-10.2) mg/dL Magnesium (1.6-2.3) mg/dL Total Protein (6.3-8.2) g/dL Albumin (3.5-5.0) g/dL Crossmatch 01/06/17 01/06/17 01/06/17 Range/Units 17:26 18:31 21:01 RBC (4.30-5.90) m/uL Hgb (13.0-17.5) gm/dL Hct (39.0-53.0) % Plt Count (150-450) k/uL Neutrophils # (1.3-7.7) k/uL BUN (9-20) mg/dL Glucose (74-99) mg/dL POC Glucose (mg/dL) 125 H 132 H 155 H (75-99) mg/dL Calcium (8.4-10.2) mg/dL Magnesium (1.6-2.3) mg/dL Total Protein (6.3-8.2) g/dL Albumin (3.5-5.0) g/dL Crossmatch 01/06/17 01/06/17 01/07/17 Range/Units 21:58 23:02 01:05 RBC (4.30-5.90) m/uL Hgb (13.0-17.5) gm/dL Hct (39.0-53.0) % Plt Count (150-450) k/uL Neutrophils # (1.3-7.7) k/uL BUN (9-20) mg/dL Glucose (74-99) mg/dL POC Glucose (mg/dL) 128 H 137 H 119 H (75-99) mg/dL Calcium (8.4-10.2) mg/dL Magnesium (1.6-2.3) mg/dL Total Protein (6.3-8.2) g/dL Albumin (3.5-5.0) g/dL Crossmatch 01/07/17 01/07/17 01/07/17 Range/Units 02:25 03:11 04:33 RBC (4.30-5.90) m/uL Hgb (13.0-17.5) gm/dL Hct (39.0-53.0) % Plt Count (150-450) k/uL Neutrophils # (1.3-7.7) k/uL BUN (9-20) mg/dL Glucose (74-99) mg/dL POC Glucose (mg/dL) 134 H 115 H 115 H (75-99) mg/dL Calcium (8.4-10.2) mg/dL Magnesium (1.6-2.3) mg/dL Total Protein (6.3-8.2) g/dL Albumin (3.5-5.0) g/dL Crossmatch 01/07/17 01/07/17 01/07/17 Range/Units 05:19 06:03 06:35 RBC 1.67 L (4.30-5.90) m/uL Hgb 5.5 L* (13.0-17.5) gm/dL Hct 15.5 L* (39.0-53.0) % Plt Count 104 L (150-450) k/uL Neutrophils # 7.8 H (1.3-7.7) k/uL BUN (9-20) mg/dL Glucose (74-99) mg/dL POC Glucose (mg/dL) 111 H 129 H (75-99) mg/dL Calcium (8.4-10.2) mg/dL Magnesium (1.6-2.3) mg/dL Total Protein (6.3-8.2) g/dL Albumin (3.5-5.0) g/dL Crossmatch 01/07/17 01/07/17 01/07/17 Range/Units 06:35 07:06 07:52 RBC (4.30-5.90) m/uL Hgb (13.0-17.5) gm/dL Hct (39.0-53.0) % Plt Count (150-450) k/uL Neutrophils # (1.3-7.7) k/uL BUN 28 H (9-20) mg/dL Glucose 104 H (74-99) mg/dL POC Glucose (mg/dL) 108 H 128 H (75-99) mg/dL Calcium 8.0 L (8.4-10.2) mg/dL Magnesium 2.5 H (1.6-2.3) mg/dL Total Protein 4.9 L (6.3-8.2) g/dL Albumin 3.0 L (3.5-5.0) g/dL Crossmatch 01/07/17 Range/Units 09:05 RBC (4.30-5.90) m/uL Hgb (13.0-17.5) gm/dL Hct (39.0-53.0) % Plt Count (150-450) k/uL Neutrophils # (1.3-7.7) k/uL BUN (9-20) mg/dL Glucose (74-99) mg/dL POC Glucose (mg/dL) 115 H (75-99) mg/dL Calcium (8.4-10.2) mg/dL Magnesium (1.6-2.3) mg/dL Total Protein (6.3-8.2) g/dL Albumin (3.5-5.0) g/dL Crossmatch Assessment and Plan Plan: Coronary artery disease status post CABG Anemia secondary to blood loss Patient will receive blood transfusion. Continue current medications.
[2017-01-07 10:52] LABS: Glucose,Whole Blood 134 mg/dL (75-99)
--- NOTE | 2017-01-07 11:27 | P.PN ---
Subjective 61-year-old for BP obese male one of Dr. Webster's patient with past medical history of hypertension, hyperlipidemia, who had NE obstructive sleep apnea had history of colitis post ileostomy with large bowel and rectum removal in the past. Patient had apparently recurrent history of angina and chest pain had heart catheter with Dr. Hdz back in October and was diagnosed with advanced three- vessel coronary artery disease. Patient was seen cardiothoracic and plan for elective surgery he ended up going to the OR today and had a three-vessel bypass surgery. Was placed on mechanical ventilation had 2 chest tube and end up been admitted to the ICU on mechanical ventilation on conscious sedation but hemodynamically stable. Still on insulin drip 3 unit an hour for now 1 blood sugar has been holding well. 01/06: Patient was seen and evaluated today. The patient had an elective surgery yesterday with Dr. Bailey, he performed a GARCIA to the LAD, saphenous vein graft to the marginal artery, saphenous vein graft to the posterior descending artery. The patient was extubated this morning and is doing well. Chest tubes remains in place. The patient was noted to be hyperglycemic and insulin drip was increased to 5.5 units per hour. The patient is hemodynamically stable we'll encourage the incentive spirometer today. 01/07: Patient was seen and evaluated today, he was noted to be sitting up in bed resting comfortably. Patient's hemoglobin noted to have a drop of 5.5 and he is hypotensive at 82/61, patient to receive 2 units of packed red blood cells. Repeat chest x-ray shows basilar atelectasis. He was extubated yesterday without any complications. Will encourage incentive spirometer and increase activity as tolerated, and continue to monitor CBC closely Objective - Vital Signs Vital signs: Vital Signs Temp 98.2 F 01/06/17 20:00 Pulse 81 01/07/17 07:00 Resp 14 01/07/17 07:00 BP 100/58 01/07/17 07:00 Pulse Ox 95 01/07/17 07:00 Intake & Output 01/06/17 01/07/17 01/07/17 18:59 06:59 18:59 Intake Total 1082.305 300.951 23.675 Output Total 950 905 80 Balance 132.305 -604.049 -56.325 Weight 129.6 kg Intake: IV 377 220 20 CO/CI 50 Lactated Ringers 1,000 ml 240 220 20 @ 20 mls/hr IV .Q24H SHUN Rx#:[id number] PRESSURE BAG 87 Intake, IV Titration 545.305 80.951 3.675 Amount ACETAMINOPHEN IV (For NPO 200 ) 1,000 mg In Empty Bag 1 bag @ 400 mls/hr IVPB Q6HR SHUN Rx#:[id number] Insulin Regular 100 unit 30.867 80.951 3.675 In Sodium Chloride 0.9% 100 ml @ Per Protocol IV .Q0M SHUN Rx#:[id number] Propofol 1,000 mg In 100 114.438 ml @ Titrate IV .Q0M SHUN Rx#:[id number] ceFAZolin 3 gm In Sodium 200 Chloride 0.9% 100 ml @ 100 mls/hr IVPB Q8H SHUN Rx#:[id number] Oral 100 Blood Product 0 Rc As-3 Unit 0 [id number] Other 60 Output: Chest Tube Drainage 290 280 30 Chest Tube Left Lateral 100 80 20 Chest Chest Tube Mediastinal 190 200 10 Drainage 10 25 Left Lower Calf 0 25 Right Lower Calf 10 0 Urine 650 600 50 Other: Voiding Method Indwelling Catheter Indwelling Catheter # Bowel Movements 0 0 ABP, PAP, CO, CI - Last Documented Arterial Blood Pressure 136/51 Pulmonary Artery Pressure 28/12 Cardiac Output 8.5 Cardiac Index 3.5 - Exam - Constitutional General appearance: no average body habitus, no cooperative, no disheveled, no mild distress, morbidly obese, no no acute distress, no obese, no severe distress, no thin - EENT Eyes: abnormal pupil, no anicteric sclerae, no disc margins sharp, no edentulous , no EOMI, no PERRLA, no fundus normal, no photophobia, no dentition normal, no poor dentition, no ptosis, no scleral icterus, normal appearance ENT: no hard of hearing, no hearing grossly normal, no NA/AT, no normal oropharynx, no other, no pharyngeal erythema, no thrush, no tonsillar exudates, no tonsillar swelling - Neck Neck: no lymphadenopathy, normal ROM, no other, no rigidity, no stridor, no thyromegaly Carotids: bilateral: upstroke normal Thyroid: bilateral: normal size - Respiratory Respiratory: left: diminished, dullness, rales, rhonchi - Cardiovascular Rhythm: regular Heart sounds: normal: S1, S2 Abnormal Heart Sounds: systolic murmur - Gastrointestinal General gastrointestinal: no absent bowel sounds, no decreased bowel sounds, distended, no hepatomegaly, no hyperactive bowel sounds, normal bowel sounds, no organomegaly, no rigid, no scaphoid, soft, no splenomegaly, no tenderness, no umbilical hernia, no ventral hernia - Integumentary Integumentary: normal, pale, rash - Neurologic Alert and orientated - Musculoskeletal Musculoskeletal: generalized weakness - Labs CBC & Chem 7: 01/07/17 06:35 01/07/17 06:35 Labs: Abnormal Lab Results - Last 24 Hours (Table) 12/30/16 01/06/17 01/06/17 Range/Units 09:20 08:32 09:10 RBC (4.30-5.90) m/uL Hgb (13.0-17.5) gm/dL Hct (39.0-53.0) % Plt Count (150-450) k/uL Neutrophils # (1.3-7.7) k/uL ABG pH 7.46 H (7.35-7.45) ABG pCO2 28 L (35-45) mmHg ABG pO2 71 L (83-108) mmHg ABG HCO3 20 L (21-25) mmol/L BUN (9-20) mg/dL Glucose (74-99) mg/dL POC Glucose (mg/dL) 143 H (75-99) mg/dL Calcium (8.4-10.2) mg/dL Magnesium (1.6-2.3) mg/dL Total Protein (6.3-8.2) g/dL Albumin (3.5-5.0) g/dL Crossmatch See Detail 01/06/17 01/06/17 01/06/17 Range/Units 10:09 11:06 12:14 RBC (4.30-5.90) m/uL Hgb (13.0-17.5) gm/dL Hct (39.0-53.0) % Plt Count (150-450) k/uL Neutrophils # (1.3-7.7) k/uL ABG pH (7.35-7.45) ABG pCO2 (35-45) mmHg ABG pO2 (83-108) mmHg ABG HCO3 (21-25) mmol/L BUN (9-20) mg/dL Glucose (74-99) mg/dL POC Glucose (mg/dL) 139 H 136 H 127 H (75-99) mg/dL Calcium (8.4-10.2) mg/dL Magnesium (1.6-2.3) mg/dL Total Protein (6.3-8.2) g/dL Albumin (3.5-5.0) g/dL Crossmatch 01/06/17 01/06/17 01/06/17 Range/Units 13:33 14:40 16:10 RBC (4.30-5.90) m/uL Hgb (13.0-17.5) gm/dL Hct (39.0-53.0) % Plt Count (150-450) k/uL Neutrophils # (1.3-7.7) k/uL ABG pH (7.35-7.45) ABG pCO2 (35-45) mmHg ABG pO2 (83-108) mmHg ABG HCO3 (21-25) mmol/L BUN (9-20) mg/dL Glucose (74-99) mg/dL POC Glucose (mg/dL) 127 H 131 H 130 H (75-99) mg/dL Calcium (8.4-10.2) mg/dL Magnesium (1.6-2.3) mg/dL Total Protein (6.3-8.2) g/dL Albumin (3.5-5.0) g/dL Crossmatch 01/06/17 01/06/17 01/06/17 Range/Units 17:26 18:31 21:01 RBC (4.30-5.90) m/uL Hgb (13.0-17.5) gm/dL Hct (39.0-53.0) % Plt Count (150-450) k/uL Neutrophils # (1.3-7.7) k/uL ABG pH (7.35-7.45) ABG pCO2 (35-45) mmHg ABG pO2 (83-108) mmHg ABG HCO3 (21-25) mmol/L BUN (9-20) mg/dL Glucose (74-99) mg/dL POC Glucose (mg/dL) 125 H 132 H 155 H (75-99) mg/dL Calcium (8.4-10.2) mg/dL Magnesium (1.6-2.3) mg/dL Total Protein (6.3-8.2) g/dL Albumin (3.5-5.0) g/dL Crossmatch 01/06/17 01/06/17 01/07/17 Range/Units 21:58 23:02 01:05 RBC (4.30-5.90) m/uL Hgb (13.0-17.5) gm/dL Hct (39.0-53.0) % Plt Count (150-450) k/uL Neutrophils # (1.3-7.7) k/uL ABG pH (7.35-7.45) ABG pCO2 (35-45) mmHg ABG pO2 (83-108) mmHg ABG HCO3 (21-25) mmol/L BUN (9-20) mg/dL Glucose (74-99) mg/dL POC Glucose (mg/dL) 128 H 137 H 119 H (75-99) mg/dL Calcium (8.4-10.2) mg/dL Magnesium (1.6-2.3) mg/dL Total Protein (6.3-8.2) g/dL Albumin (3.5-5.0) g/dL Crossmatch 01/07/17 01/07/17 01/07/17 Range/Units 02:25 03:11 04:33 RBC (4.30-5.90) m/uL Hgb (13.0-17.5) gm/dL Hct (39.0-53.0) % Plt Count (150-450) k/uL Neutrophils # (1.3-7.7) k/uL ABG pH (7.35-7.45) ABG pCO2 (35-45) mmHg ABG pO2 (83-108) mmHg ABG HCO3 (21-25) mmol/L BUN (9-20) mg/dL Glucose (74-99) mg/dL POC Glucose (mg/dL) 134 H 115 H 115 H (75-99) mg/dL Calcium (8.4-10.2) mg/dL Magnesium (1.6-2.3) mg/dL Total Protein (6.3-8.2) g/dL Albumin (3.5-5.0) g/dL Crossmatch 01/07/17 01/07/17 01/07/17 Range/Units 05:19 06:03 06:35 RBC 1.67 L (4.30-5.90) m/uL Hgb 5.5 L* (13.0-17.5) gm/dL Hct 15.5 L* (39.0-53.0) % Plt Count 104 L (150-450) k/uL Neutrophils # 7.8 H (1.3-7.7) k/uL ABG pH (7.35-7.45) ABG pCO2 (35-45) mmHg ABG pO2 (83-108) mmHg ABG HCO3 (21-25) mmol/L BUN (9-20) mg/dL Glucose (74-99) mg/dL POC Glucose (mg/dL) 111 H 129 H (75-99) mg/dL Calcium (8.4-10.2) mg/dL Magnesium (1.6-2.3) mg/dL Total Protein (6.3-8.2) g/dL Albumin (3.5-5.0) g/dL Crossmatch 01/07/17 01/07/17 01/07/17 Range/Units 06:35 07:06 07:52 RBC (4.30-5.90) m/uL Hgb (13.0-17.5) gm/dL Hct (39.0-53.0) % Plt Count (150-450) k/uL Neutrophils # (1.3-7.7) k/uL ABG pH (7.35-7.45) ABG pCO2 (35-45) mmHg ABG pO2 (83-108) mmHg ABG HCO3 (21-25) mmol/L BUN 28 H (9-20) mg/dL Glucose 104 H (74-99) mg/dL POC Glucose (mg/dL) 108 H 128 H (75-99) mg/dL Calcium 8.0 L (8.4-10.2) mg/dL Magnesium 2.5 H (1.6-2.3) mg/dL Total Protein 4.9 L (6.3-8.2) g/dL Albumin 3.0 L (3.5-5.0) g/dL Crossmatch Assessment and Plan Plan: 1 CAD post three-vessel CABG: Stable post surgery continue to watch patient hemodynamic status, patient extubated this morning and doing well, still managed by pulmonary critical care. 2 acute postsurgical respiratory failure as an expected procedure post open heart surgery continue to manage sent by pulmonary critical care, extubated this morning and doing well. 3 Acute blood loss anemia status post CABG: Expected outcome of surgery, will receive 2 units of RBCs today, monitor CBC closely. 4 hypertension: Metoprolol 12.5 mg twice a day 5 arrhythmia stable no A. fib post surgery. Continue metoprolol 6 hyperglycemia: Patient is off insulin drip, Levemir 7 units added we'll continue to monitor glucose closely. 7 COPD: Continue patient on DuoNeb. 8 hyperlipidemia: Resume Lipitor at 40 mg daily. 9 BPH: Watch for any urinary retention after surgery patient, catheter discontinued 10 gastroparesis: Has been on Reglan and PPI resume both medications CODE STATUS: Full code. The above impression and plan of care have been discussed and directed by signing physician. Natalia Lara nurse practitioner acting as scribe for signing physician.
[2017-01-07] MEDS ORDERED: FUROSEMIDE 10 MG/ML 4 ML VIAL IV STA (11:46)
[2017-01-07 12:09] LABS: Glucose,Whole Blood 177 mg/dL (75-99)
[2017-01-07] MEDS: INSULIN LISPRO (humaLOG) 300 UNIT/3 ML VIAL SQ SCH ×3 (12:09→20:17)
[2017-01-07] MEDS: INSULIN DETEMIR 100 UNIT/ML 10 ML VIAL SQ SCH (12:09)
[2017-01-07 14:06] LABS: CH 31.8; CHCM 34.8; HDW 2.99; MCH 31.6 pg (25.0-35.0); MCHC 34.3 g/dL (31.0-37.0); MCV 91.9 fL (80.0-100.0); Mean Platelet Volume 9.2; RBC 1.95 m/uL (4.30-5.90); RDW 14.5 % (11.5-15.5); WBC 10.8 k/uL (3.8-10.6)
[2017-01-07 14:21] LABS: HGB 6.2 gm/dL (13.0-17.5)
[2017-01-07 16:30] LABS: Glucose,Whole Blood 116 mg/dL (75-99)
[2017-01-07] MEDS: MULTIVITAMINS, THERA 1 EACH TAB PO SCH (18:54)
[2017-01-07] MEDS: LACTATED RINGERS 1,000 ML IV SCH (18:54)
[2017-01-07] MEDS: CLEVIDIPINE BUTYRATE 25 MG in EMPTY BAG 1 BAG IV SCH (19:40)
[2017-01-07 20:19] LABS: Glucose,Whole Blood 144 mg/dL (75-99)
[2017-01-07] MEDS: MONTELUKAST 10 MG TAB PO SCH (21:12)
[2017-01-07] MEDS: SENNOSIDES-DOCUSATE SODIUM 1 EACH TAB PO SCH (21:13)
[2017-01-08] MEDS: HYDROcodone/APAP 5-325MG 1 EACH TAB PO PRN (00:09)
[2017-01-08] MEDS: INSULIN LISPRO (humaLOG) 300 UNIT/3 ML VIAL SQ SCH ×8 (00:12→21:43)
[2017-01-08 00:15] LABS: Glucose,Whole Blood 112 mg/dL (75-99)
[2017-01-08] MEDS: KETOROLAC 30 MG/ML 1 ML VIAL IVP SCH ×5 (00:25→23:04)
[2017-01-08] MEDS: HEPARIN SODIUM,PORCINE 5,000 UNIT/ML 1 ML VIAL SQ SCH ×4 (00:25→23:05)
[2017-01-08 04:16] LABS: Glucose,Whole Blood 120 mg/dL (75-99)
[2017-01-08 04:36] LABS: Ionized Calcium 4.6 mg/dL (4.5-5.3)
[2017-01-08 04:46] LABS: Anion Gap 7 mmol/L; Calcium 8.1 mg/dL (8.4-10.2); Carbon Dioxide 25 mmol/L (22-30); Chloride 107 mmol/L (98-107); Glucose 109 mg/dL (74-99); Non-African American GFR(MDRD) >60 (>60 ml/min/1.73 sqM); Sodium 139 mmol/L (137-145); Total Bilirubin 0.9 mg/dL (0.2-1.3)
[2017-01-08 04:48] LABS: AST 51 U/L (17-59); Blood Urea Nitrogen 31 mg/dL (9-20); Magnesium 2.3 mg/dL (1.6-2.3); Potassium 4.4 mmol/L (3.5-5.1); Total Protein 5.3 g/dL (6.3-8.2)
[2017-01-08 04:49] LABS: ALT 16 U/L (21-72); Alkaline Phosphatase 64 U/L (38-126)
[2017-01-08 05:22] LABS: Basophils % (A) 0 %; CH 30.7; CHCM 33.7; Eosinophils # (A) 0.3 k/uL (0-0.7); Eosinophils % (A) 2 %; HGB 7.1 gm/dL (13.0-17.5); Luc # (Auto) 0.18; Luc % (Auto) 2; Lymphocytes # (A) 1.5 k/uL (1.0-4.8); Lymphocytes % (A) 15 %; MCHC 33.8 g/dL (31.0-37.0); MCV 91.7 fL (80.0-100.0); Mean Platelet Volume 8.8; Monocytes # (A) 0.4 k/uL (0-1.0); Monocytes % (A) 4 %; Neutrophils # (A) 8.1 k/uL (1.3-7.7); Neutrophils % (A) 77 %; RBC 2.29 m/uL (4.30-5.90); RDW 14.7 % (11.5-15.5); WBC 10.5 k/uL (3.8-10.6); WBC (Perox) 10.81
[2017-01-08] MEDS ORDERED: HYDROcodone/APAP 7.5-325MG 1 EACH TAB PO PRN (07:25)
--- NOTE | 2017-01-08 07:51 | P.PN ---
Addendum entered and electronically signed by Claudia Acuna [employer] 01/08/17 10:19 : Addendum: A/V epicardial PMW discontinued without incident or ectopy. Left pleural chest tube discontinued without incident. Pt haley well. CXR in AM. Original Note: <Claudia Acuna - Last Filed: 01/08/17 07:44> Subjective Principal diagnosis: Coronary artery disease. Hypertension. Hyperlipidemia. History of myocardial infarction. History of BPH. History of ulcerative colitis with an ileostomy. Distant history of dialysis for 5 days secondary to elevated potassium. Previous tobacco dependence. Family history of myocardial infarction at a young age. COPD. History of gastroparesis. Obesity. POD #3 elective coronary artery bypass grafting 3 vessels, left internal mammary artery to left anterior descending artery, reverse saphenous vein graft to the obtuse marginal artery, reverse saphenous vein graft to the posterior descending artery. Endoscopic vein harvest, bilateral greater saphenous veins. Epi-aortic ultrasound. Intraoperative transesophageal echocardiogram. Closure of sternum using titanium cable system. Postoperative acute blood loss anemia, expected outcome of surgery. Patient currently sitting up in the chair in no acute distress. Complains of sternal pain. Received 2 units of packed red blood cells yesterday with improvement in hemoglobin. Objective - Vital Signs Vital signs: Vital Signs Temp 98.9 F 01/08/17 04:00 Pulse 72 01/08/17 07:00 Resp 18 01/08/17 07:00 BP 119/56 01/08/17 07:00 Pulse Ox 100 01/08/17 07:00 Intake & Output 01/07/17 01/08/17 01/08/17 18:59 06:59 18:59 Intake Total 1463.675 130 10 Output Total 960 630 40 Balance 503.675 -500 -30 Weight 128.3 kg Intake: IV 220 130 10 Lactated Ringers 1,000 ml 220 130 10 @ 20 mls/hr IV .Q24H SHUN Rx#:[id number] Intake, IV Titration 3.675 Amount Insulin Regular 100 unit 3.675 In Sodium Chloride 0.9% 100 ml @ Per Protocol IV .Q0M SHUN Rx#:[id number] Blood Product 1240 Rc As-1 Unit 310 [id number] Rc As-3 Unit 310 [id number] Output: Chest Tube Drainage 110 115 40 Chest Tube Left Lateral 80 115 40 Chest Chest Tube Mediastinal 30 Drainage 15 Left Lower Calf 15 Urine 850 500 Other: Voiding Method Indwelling Catheter Indwelling Catheter # Voids 0 # Bowel Movements 1 ABP, PAP, CO, CI - Last Documented Arterial Blood Pressure 136/51 Pulmonary Artery Pressure 28/12 Cardiac Output 8.5 Cardiac Index 3.5 - Constitutional General appearance: Present: cooperative, no acute distress, obese - Respiratory Details: Lungs sounds diminished bilaterally. Respirations even, nonlabored. Currently on 4 L nasal cannula with oxygen saturation 99%. Able to achieve 1250 mL on his incentive spirometer. Left pleural chest tube to -20 cm wall suction, 85 mL serous drainage overnight, 200 mL last 24 hours. No air leak present. - Cardiovascular Details: S1, S2 present. Regular rate and rhythm, normal sinus rhythm on telemetry. Sternum stable. A/V epicardial pacemaker wires present, capped. Heart hugger in place with patient demonstrating appropriate use. Palpable pulses bilaterally. No edema present. Teds/SCDs present. - Gastrointestinal Gastrointestinal Comment(s): Abdomen soft, nontender, nondistended. Active bowel sounds 4 quadrants. Ileostomy present to right lower quadrant, emptied on midnight. Tolerating diet. - Genitourinary Genitourinary Comment(s): Adhikari discontinued yesterday, patient unable to void, straight cathed 1 this morning. - Integumentary Integumentary Comment(s): Anterior chest incision well approximated, dry intact dressing. Bilateral lower extremity EVH sites well approximated, PORFIRIO drains present draining minimal drainage. - Neurologic Neurologic: Present: CNII-XII intact - Musculoskeletal Musculoskeletal: Present: generalized weakness, strength equal bilaterally - Psychiatric Psychiatric: Present: A&O x's 3, appropriate affect, intact judgment & insight - Allied health notes Allied health notes reviewed: nursing - Labs CBC & Chem 7: 01/08/17 05:12 01/08/17 04:17 Labs: Abnormal Lab Results - Last 24 Hours (Table) 12/30/16 01/07/17 01/07/17 Range/Units 09:20 07:52 09:05 WBC (3.8-10.6) k/uL RBC (4.30-5.90) m/uL Hgb (13.0-17.5) gm/dL Hct (39.0-53.0) % Plt Count (150-450) k/uL Neutrophils # (1.3-7.7) k/uL BUN (9-20) mg/dL Glucose (74-99) mg/dL POC Glucose (mg/dL) 128 H 115 H (75-99) mg/dL Calcium (8.4-10.2) mg/dL ALT (21-72) U/L Total Protein (6.3-8.2) g/dL Albumin (3.5-5.0) g/dL Crossmatch See Detail 01/07/17 01/07/17 01/07/17 Range/Units 10:51 12:07 13:42 WBC 10.8 H (3.8-10.6) k/uL RBC 1.95 L (4.30-5.90) m/uL Hgb 6.2 L* (13.0-17.5) gm/dL Hct 18.0 L* (39.0-53.0) % Plt Count 109 L (150-450) k/uL Neutrophils # (1.3-7.7) k/uL BUN (9-20) mg/dL Glucose (74-99) mg/dL POC Glucose (mg/dL) 134 H 177 H (75-99) mg/dL Calcium (8.4-10.2) mg/dL ALT (21-72) U/L Total Protein (6.3-8.2) g/dL Albumin (3.5-5.0) g/dL Crossmatch 01/07/17 01/07/17 01/08/17 Range/Units 16:29 20:16 00:12 WBC (3.8-10.6) k/uL RBC (4.30-5.90) m/uL Hgb (13.0-17.5) gm/dL Hct (39.0-53.0) % Plt Count (150-450) k/uL Neutrophils # (1.3-7.7) k/uL BUN (9-20) mg/dL Glucose (74-99) mg/dL POC Glucose (mg/dL) 116 H 144 H 112 H (75-99) mg/dL Calcium (8.4-10.2) mg/dL ALT (21-72) U/L Total Protein (6.3-8.2) g/dL Albumin (3.5-5.0) g/dL Crossmatch 01/08/17 01/08/17 01/08/17 Range/Units 04:14 04:17 05:12 WBC (3.8-10.6) k/uL RBC 2.29 L (4.30-5.90) m/uL Hgb 7.1 L (13.0-17.5) gm/dL Hct 21.0 L (39.0-53.0) % Plt Count 101 L (150-450) k/uL Neutrophils # 8.1 H (1.3-7.7) k/uL BUN 31 H (9-20) mg/dL Glucose 109 H (74-99) mg/dL POC Glucose (mg/dL) 120 H (75-99) mg/dL Calcium 8.1 L (8.4-10.2) mg/dL ALT 16 L (21-72) U/L Total Protein 5.3 L (6.3-8.2) g/dL Albumin 3.1 L (3.5-5.0) g/dL Crossmatch - Imaging and Cardiology Chest x-ray: image reviewed Assessment and Plan (1) Coronary artery disease Status: Acute (2) Hypertension Status: Acute (3) Hyperlipidemia Status: Acute (4) Previous myocardial infarction older than 8 weeks Status: Acute (5) BPH (benign prostatic hyperplasia) Status: Acute (6) Ulcerative colitis Status: Acute (7) Status post ileostomy Status: Acute (8) Tobacco dependence in remission Status: Acute (9) Family history of early CAD Status: Acute (10) COPD (chronic obstructive pulmonary disease) Status: Acute (11) Gastroparesis Status: Acute Plan: 1. Continue aspirin, statin, Plavix, heparin subcu, beta ronni. Will maximize beta ronni therapy as tolerated. 2. Wean O2 as tolerated. Encourage incentive spirometry use. 3. GI/DVT prophylaxis. 4. Will discontinue left pleural chest tube, PORFIRIO drains, pacemaker wires today. 5. Will monitor daily labs, chest x-rays. 6. Insulin management per internal medicine service. 7. Increase activity as tolerated. Physical therapy to follow. 8. Postvoid residuals to be done by nursing staff every 6 hours, straight cath if greater than 300 mL. If retention persists we will consult urology. 9. We'll transfer to 6 E. selective care today. More recommendations as patient progresses. Time with Patient: Greater than 30 <Neal Bailey - Last Filed: 01/09/17 14:17> Objective - Vital Signs Vital signs: Vital Signs Temp 98.1 F 01/09/17 11:58 Pulse 83 01/09/17 11:58 Resp 16 01/09/17 11:58 BP 101/58 01/09/17 11:58 Pulse Ox 92 L 01/09/17 11:58 Intake & Output 01/08/17 01/09/17 01/09/17 18:59 06:59 18:59 Intake Total 128 720 Output Total 690 900 Balance -562 -900 720 Weight 128.9 kg Intake: IV 10 Lactated Ringers 1,000 ml 10 @ 20 mls/hr IV .Q24H SHUN Rx#:[id number] Oral 118 720 Output: Chest Tube Drainage 140 Chest Tube Left Lateral 140 Chest Urine 550 900 Other: Voiding Method Urinal Urinal Toilet Urinal # Voids 1 # Bowel Movements 1 1 ABP, PAP, CO, CI - Last Documented Arterial Blood Pressure 136/51 Pulmonary Artery Pressure 28/12 Cardiac Output 8.5 Cardiac Index 3.5 - Labs CBC & Chem 7: 01/09/17 08:17 01/09/17 05:37 Labs: Abnormal Lab Results - Last 24 Hours (Table) 01/08/17 01/08/17 01/09/17 Range/Units 16:43 21:08 01:52 RBC (4.30-5.90) m/uL Hgb (13.0-17.5) gm/dL Hct (39.0-53.0) % RDW (11.5-15.5) % Plt Count (150-450) k/uL BUN (9-20) mg/dL POC Glucose (mg/dL) 113 H 106 H 107 H (75-99) mg/dL Calcium (8.4-10.2) mg/dL Total Protein (6.3-8.2) g/dL Albumin (3.5-5.0) g/dL 01/09/17 01/09/17 01/09/17 Range/Units 05:34 05:37 05:41 RBC 2.14 L (4.30-5.90) m/uL Hgb 6.4 L* (13.0-17.5) gm/dL Hct 20.1 L (39.0-53.0) % RDW 16.2 H (11.5-15.5) % Plt Count 110 L (150-450) k/uL BUN 27 H (9-20) mg/dL POC Glucose (mg/dL) 118 H (75-99) mg/dL Calcium 8.2 L (8.4-10.2) mg/dL Total Protein 5.1 L (6.3-8.2) g/dL Albumin 2.9 L (3.5-5.0) g/dL 01/09/17 01/09/17 Range/Units 08:17 11:22 RBC 2.32 L (4.30-5.90) m/uL Hgb 7.2 L (13.0-17.5) gm/dL Hct 21.5 L (39.0-53.0) % RDW 16.2 H (11.5-15.5) % Plt Count 144 L (150-450) k/uL BUN (9-20) mg/dL POC Glucose (mg/dL) 117 H (75-99) mg/dL Calcium (8.4-10.2) mg/dL Total Protein (6.3-8.2) g/dL Albumin (3.5-5.0) g/dL Assessment and Plan Plan: The patient was seen and examined. I agree with the above assessment and plan. We will discontinue his remaining chest tube and temporary pacing wires today. We will maximize his beta ronni. We'll encourage ambulation and wean his oxygen. He did require straight cath last night. He has a known history of BPH. Flomax was added. If he continues to have difficulty urinating, then we will consult urology. Otherwise I believe he is stable for transfer to [facility].
[2017-01-08] MEDS: MULTIVITAMINS, THERA 1 EACH TAB PO SCH (08:24)
[2017-01-08] MEDS: ASPIRIN 325 MG TAB PO SCH (08:24)
[2017-01-08] MEDS: METOPROLOL TARTRATE 12.5 MG TAB PO SCH ×2 (08:24→20:45)
[2017-01-08] MEDS: ATORVASTATIN 40 MG TAB PO SCH (08:25)
[2017-01-08] MEDS: CLOPIDOGREL 75 MG TAB PO SCH (08:25)
[2017-01-08] MEDS: FINASTERIDE 5 MG TAB PO SCH (08:25)
[2017-01-08] MEDS: HYDROcodone/APAP 7.5-325MG 1 EACH TAB PO PRN ×3 (08:25→20:44)
[2017-01-08] MEDS: CHOLECALCIFEROL 1,000 UNIT TAB PO SCH (08:25)
[2017-01-08] MEDS: INSULIN DETEMIR 100 UNIT/ML 10 ML VIAL SQ SCH (08:29)
[2017-01-08] MEDS: MUPIROCIN 2% OINT 22 GM TUBE NASAL SCH ×2 (08:43→21:44)
[2017-01-08] MEDS: PANTOPRAZOLE 40 MG TABLET PO SCH ×2 (08:43→18:52)
[2017-01-08] MEDS ORDERED: INSULIN DETEMIR 100 UNIT/ML 10 ML VIAL SQ SCH (09:01)
--- NOTE | 2017-01-08 09:25 | P.PN ---
Subjective Progress note dated 01/08/2017 This is a 61-year-old male who is seen today in the intensive care unit. He has a history of coronary artery disease and is status post three-vessel bypass grafting, postop day #3. He had postsurgical ventilator dependence which is resolved anemia hypertension hyperlipidemia previous myocardial infarction BPH and also of colitis, status post ileostomy. The patient's doing reasonably well. He is receiving O2 at 4 L. No IV fluids. He'll be able to move out of the ICU today. Chest x-ray shows postsurgical changes. He's got some mild basilar atelectasis and some small pleural effusions. Objective - Vital Signs Vital signs: Vital Signs Temp 98.9 F 01/08/17 04:00 Pulse 72 01/08/17 07:00 Resp 18 01/08/17 07:00 BP 119/56 01/08/17 07:00 Pulse Ox 100 01/08/17 07:00 Intake & Output 01/07/17 01/08/17 01/08/17 18:59 06:59 18:59 Intake Total 1463.675 130 10 Output Total 960 630 140 Balance 503.675 -500 -130 Weight 128.3 kg Intake: IV 220 130 10 Lactated Ringers 1,000 ml 220 130 10 @ 20 mls/hr IV .Q24H SHUN Rx#:[id number] Intake, IV Titration 3.675 Amount Insulin Regular 100 unit 3.675 In Sodium Chloride 0.9% 100 ml @ Per Protocol IV .Q0M SHUN Rx#:[id number] Blood Product 1240 As-1 Unit 310 [id number] As-3 Unit 310 [id number] Output: Chest Tube Drainage 110 115 140 Chest Tube Left Lateral 80 115 140 Chest Chest Tube Mediastinal 30 Drainage 15 Left Lower Calf 15 Urine 850 500 Other: Voiding Method Indwelling Catheter Indwelling Catheter # Voids 0 # Bowel Movements 1 ABP, PAP, CO, CI - Last Documented Arterial Blood Pressure 136/51 Pulmonary Artery Pressure 28/12 Cardiac Output 8.5 Cardiac Index 3.5 - Exam No acute distress, oriented 3. HEENT examination is grossly unremarkable. Mucous membranes are moist. No oral lesions. Neck supple. Full range of motion. No adenopathy or thyromegaly. Neck veins are flat. Cardiovascular examination reveals regular rhythm rate. S1-S2 normal. No S3- S4 or murmur. Lungs reveal mostly clear breath sounds. A few scattered rhonchi. No wheezes or crackles. Abdomen soft bowel sounds are heard. No masses or tenderness. Extremities are intact. No cyanosis clubbing or edema. Skin without rash. Neurologic examination is nonfocal. - Labs CBC & Chem 7: 01/08/17 05:12 01/08/17 04:17 Labs: Abnormal Lab Results - Last 24 Hours (Table) 12/30/16 01/07/17 01/07/17 Range/Units 09:20 10:51 12:07 WBC (3.8-10.6) k/uL RBC (4.30-5.90) m/uL Hgb (13.0-17.5) gm/dL Hct (39.0-53.0) % Plt Count (150-450) k/uL Neutrophils # (1.3-7.7) k/uL BUN (9-20) mg/dL Glucose (74-99) mg/dL POC Glucose (mg/dL) 134 H 177 H (75-99) mg/dL Calcium (8.4-10.2) mg/dL ALT (21-72) U/L Total Protein (6.3-8.2) g/dL Albumin (3.5-5.0) g/dL Crossmatch See Detail 01/07/17 01/07/17 01/07/17 Range/Units 13:42 16:29 20:16 WBC 10.8 H (3.8-10.6) k/uL RBC 1.95 L (4.30-5.90) m/uL Hgb 6.2 L* (13.0-17.5) gm/dL Hct 18.0 L* (39.0-53.0) % Plt Count 109 L (150-450) k/uL Neutrophils # (1.3-7.7) k/uL BUN (9-20) mg/dL Glucose (74-99) mg/dL POC Glucose (mg/dL) 116 H 144 H (75-99) mg/dL Calcium (8.4-10.2) mg/dL ALT (21-72) U/L Total Protein (6.3-8.2) g/dL Albumin (3.5-5.0) g/dL Crossmatch 01/08/17 01/08/17 01/08/17 Range/Units 00:12 04:14 04:17 WBC (3.8-10.6) k/uL RBC (4.30-5.90) m/uL Hgb (13.0-17.5) gm/dL Hct (39.0-53.0) % Plt Count (150-450) k/uL Neutrophils # (1.3-7.7) k/uL BUN 31 H (9-20) mg/dL Glucose 109 H (74-99) mg/dL POC Glucose (mg/dL) 112 H 120 H (75-99) mg/dL Calcium 8.1 L (8.4-10.2) mg/dL ALT 16 L (21-72) U/L Total Protein 5.3 L (6.3-8.2) g/dL Albumin 3.1 L (3.5-5.0) g/dL Crossmatch 01/08/17 Range/Units 05:12 WBC (3.8-10.6) k/uL RBC 2.29 L (4.30-5.90) m/uL Hgb 7.1 L (13.0-17.5) gm/dL Hct 21.0 L (39.0-53.0) % Plt Count 101 L (150-450) k/uL Neutrophils # 8.1 H (1.3-7.7) k/uL BUN (9-20) mg/dL Glucose (74-99) mg/dL POC Glucose (mg/dL) (75-99) mg/dL Calcium (8.4-10.2) mg/dL ALT (21-72) U/L Total Protein (6.3-8.2) g/dL Albumin (3.5-5.0) g/dL Crossmatch Assessment and Plan (1) Anemia Status: Acute (2) Ventilator dependence Status: Acute (3) BPH (benign prostatic hyperplasia) Status: Acute (4) Coronary artery disease Status: Acute (5) Family history of early CAD Status: Acute (6) Hyperlipidemia Status: Acute (7) Hypertension Status: Acute (8) Previous myocardial infarction older than 8 weeks Status: Acute (9) Status post ileostomy Status: Acute (10) Tobacco dependence in remission Status: Acute (11) Ulcerative colitis Status: Acute Plan: Plan dated 01/08/2017 The patient's doing well. We continue to encourage deep breathing coughing clearing of secretions. The patient should continue using his incentive spirometer every hour while awake. The patient is likely to be moved out of the ICU today. The patient not receiving any IV fluids. O2 his been weaned down to 4 L nasal cannula. Prognosis remains guarded Time with Patient: Less than 30
--- NOTE | 2017-01-08 10:13 | P.PN ---
Subjective 61-year-old for BP obese male one of Dr. Webster's patient with past medical history of hypertension, hyperlipidemia, who had MD obstructive sleep apnea had history of colitis post ileostomy with large bowel and rectum removal in the past. Patient had apparently recurrent history of angina and chest pain had heart catheter with Dr. Hdz back in October and was diagnosed with advanced three- vessel coronary artery disease. Patient was seen cardiothoracic and plan for elective surgery he ended up going to the OR today and had a three-vessel bypass surgery. Was placed on mechanical ventilation had 2 chest tube and end up been admitted to the ICU on mechanical ventilation on conscious sedation but hemodynamically stable. Still on insulin drip 3 unit an hour for now 1 blood sugar has been holding well. 01/06: Patient was seen and evaluated today. The patient had an elective surgery yesterday with Dr. Bailey, he performed a GARCIA to the LAD, saphenous vein graft to the marginal artery, saphenous vein graft to the posterior descending artery. The patient was extubated this morning and is doing well. Chest tubes remains in place. The patient was noted to be hyperglycemic and insulin drip was increased to 5.5 units per hour. The patient is hemodynamically stable we'll encourage the incentive spirometer today. 01/07: Patient was seen and evaluated today, he was noted to be sitting up in bed resting comfortably. Patient's hemoglobin noted to have a drop of 5.5 and he is hypotensive at 82/61, patient to receive 2 units of packed red blood cells. Repeat chest x-ray shows basilar atelectasis. He was extubated yesterday without any complications. Will encourage incentive spirometer and increase activity as tolerated, and continue to monitor CBC closely. 01/08: Patient was transfused yesterday with 2 units of packed red blood cells, hemoglobin today is 7.1, blood pressure also improved 119/56. Plans are to remove his mediastinal chest tube and Adhikari catheter today, left pleural drain will remain. Blood sugars have been slightly elevated, Levemir and Humalog were increased. Overall patient is doing well, will continue to use incentive spirometer and increase activity as tolerated. Will also continue to monitor CBC closely. Plan is to move patient from ICU to selective care today. Objective - Vital Signs Vital signs: Vital Signs Temp 98.9 F 01/08/17 04:00 Pulse 72 01/08/17 07:00 Resp 18 01/08/17 07:00 BP 119/56 01/08/17 07:00 Pulse Ox 100 01/08/17 07:00 Intake & Output 01/07/17 01/08/17 01/08/17 18:59 06:59 18:59 Intake Total 1463.675 130 10 Output Total 960 630 140 Balance 503.675 -500 -130 Weight 128.3 kg Intake: IV 220 130 10 Lactated Ringers 1,000 ml 220 130 10 @ 20 mls/hr IV .Q24H SHUN Rx#:[id number] Intake, IV Titration 3.675 Amount Insulin Regular 100 unit 3.675 In Sodium Chloride 0.9% 100 ml @ Per Protocol IV .Q0M SHUN Rx#:[id number] Blood Product 1240 As-1 Unit 310 [id number] As-3 Unit 310 [id number] Output: Chest Tube Drainage 110 115 140 Chest Tube Left Lateral 80 115 140 Chest Chest Tube Mediastinal 30 Drainage 15 Left Lower Calf 15 Urine 850 500 Other: Voiding Method Indwelling Catheter Indwelling Catheter # Voids 0 # Bowel Movements 1 ABP, PAP, CO, CI - Last Documented Arterial Blood Pressure 136/51 Pulmonary Artery Pressure 28/12 Cardiac Output 8.5 Cardiac Index 3.5 - Exam - Constitutional General appearance: no average body habitus, no cooperative, no disheveled, no mild distress, morbidly obese, no no acute distress, no obese, no severe distress, no thin - EENT Eyes: abnormal pupil, no anicteric sclerae, no disc margins sharp, no edentulous , no EOMI, no PERRLA, no fundus normal, no photophobia, no dentition normal, no poor dentition, no ptosis, no scleral icterus, normal appearance ENT: no hard of hearing, no hearing grossly normal, no NA/AT, no normal oropharynx, no other, no pharyngeal erythema, no thrush, no tonsillar exudates, no tonsillar swelling - Neck Neck: no lymphadenopathy, normal ROM, no other, no rigidity, no stridor, no thyromegaly Carotids: bilateral: upstroke normal Thyroid: bilateral: normal size - Respiratory Respiratory: left: diminished, dullness, rales, rhonchi - Cardiovascular Rhythm: regular Heart sounds: normal: S1, S2 Abnormal Heart Sounds: systolic murmur - Gastrointestinal General gastrointestinal: no absent bowel sounds, no decreased bowel sounds, distended, no hepatomegaly, no hyperactive bowel sounds, normal bowel sounds, no organomegaly, no rigid, no scaphoid, soft, no splenomegaly, no tenderness, no umbilical hernia, no ventral hernia - Integumentary Integumentary: normal, pale, rash - Neurologic Alert and orientated - Musculoskeletal Musculoskeletal: generalized weakness - Labs CBC & Chem 7: 01/08/17 05:12 01/08/17 04:17 Labs: Abnormal Lab Results - Last 24 Hours (Table) 12/30/16 01/07/17 01/07/17 Range/Units 09:20 10:51 12:07 WBC (3.8-10.6) k/uL RBC (4.30-5.90) m/uL Hgb (13.0-17.5) gm/dL Hct (39.0-53.0) % Plt Count (150-450) k/uL Neutrophils # (1.3-7.7) k/uL BUN (9-20) mg/dL Glucose (74-99) mg/dL POC Glucose (mg/dL) 134 H 177 H (75-99) mg/dL Calcium (8.4-10.2) mg/dL ALT (21-72) U/L Total Protein (6.3-8.2) g/dL Albumin (3.5-5.0) g/dL Crossmatch See Detail 01/07/17 01/07/17 01/07/17 Range/Units 13:42 16:29 20:16 WBC 10.8 H (3.8-10.6) k/uL RBC 1.95 L (4.30-5.90) m/uL Hgb 6.2 L* (13.0-17.5) gm/dL Hct 18.0 L* (39.0-53.0) % Plt Count 109 L (150-450) k/uL Neutrophils # (1.3-7.7) k/uL BUN (9-20) mg/dL Glucose (74-99) mg/dL POC Glucose (mg/dL) 116 H 144 H (75-99) mg/dL Calcium (8.4-10.2) mg/dL ALT (21-72) U/L Total Protein (6.3-8.2) g/dL Albumin (3.5-5.0) g/dL Crossmatch 01/08/17 01/08/17 01/08/17 Range/Units 00:12 04:14 04:17 WBC (3.8-10.6) k/uL RBC (4.30-5.90) m/uL Hgb (13.0-17.5) gm/dL Hct (39.0-53.0) % Plt Count (150-450) k/uL Neutrophils # (1.3-7.7) k/uL BUN 31 H (9-20) mg/dL Glucose 109 H (74-99) mg/dL POC Glucose (mg/dL) 112 H 120 H (75-99) mg/dL Calcium 8.1 L (8.4-10.2) mg/dL ALT 16 L (21-72) U/L Total Protein 5.3 L (6.3-8.2) g/dL Albumin 3.1 L (3.5-5.0) g/dL Crossmatch 01/08/17 Range/Units 05:12 WBC (3.8-10.6) k/uL RBC 2.29 L (4.30-5.90) m/uL Hgb 7.1 L (13.0-17.5) gm/dL Hct 21.0 L (39.0-53.0) % Plt Count 101 L (150-450) k/uL Neutrophils # 8.1 H (1.3-7.7) k/uL BUN (9-20) mg/dL Glucose (74-99) mg/dL POC Glucose (mg/dL) (75-99) mg/dL Calcium (8.4-10.2) mg/dL ALT (21-72) U/L Total Protein (6.3-8.2) g/dL Albumin (3.5-5.0) g/dL Crossmatch Assessment and Plan Plan: 1 CAD post three-vessel CABG: Stable post surgery continue to watch patient hemodynamic status, patient extubated this morning and doing well, still managed by pulmonary critical care. 2 acute postsurgical respiratory failure as an expected procedure post open heart surgery continue to manage sent by pulmonary critical care, extubated this morning and doing well. Continue to use incentive spirometer 3 Acute blood loss anemia status post CABG: Expected outcome of surgery, received 2 units of RBCs yesterday, hemoglobin has improved, will monitor CBC closely. 4 hypertension: Metoprolol 12.5 mg twice a day 5 arrhythmia stable no A. fib post surgery. Continue metoprolol 6 hyperglycemia: Patient is off insulin drip, continue Levemir and Humalog, and Accu-Cheks 7 COPD: Continue patient on DuoNeb. 8 hyperlipidemia: Resume Lipitor at 40 mg daily. 9 BPH: Watch for any urinary retention after surgery patient, catheter discontinued, continue finasteride 10 gastroparesis: Has been on Reglan and PPI resume both medications 11 GI Prophylaxis: continue Protonix 40 mg twice a day 12 DVT prophylaxis: On heparin, Plavix, and compression stockings CODE STATUS: Full code. The above impression and plan of care have been discussed and directed by signing physician. Natalia Lara nurse practitioner acting as scribe for signing physician.
--- NOTE | 2017-01-08 10:46 | XR ---
EXAMINATION TYPE: XR chest 1V portable DATE OF EXAM: 01/08/2017 COMPARISON: 01/07/2017 HISTORY: Postop cardiac surgery. TECHNIQUE: Single frontal view of the chest is obtained. FINDINGS: Bilateral consolidation small effusion. Left-sided chest tube noted. Post surgical change seen in the mediastinum. IMPRESSION: 1. Bilateral infiltrate and small effusion. Stable.
[2017-01-08 12:12] LABS: Glucose,Whole Blood 124 mg/dL (75-99)
--- NOTE | 2017-01-08 12:57 | P.PN ---
Subjective Principal diagnosis: CAD status post CABG postop day #3 Patient has known multivessel coronary artery disease and underwent bypass surgery for the same. Today is postop day #3. Patient's perioperative course was complicated by significant blood loss. This morning the hemoglobin is around 5.5 is still has significant drainage from the chest tubes. He is going to receive blood transfusion. He is on aspirin Plavix and Lipitor. Carlos inhibitors and beta blockers are currently on hold due to hypotension Beta blockers have been resumed. Patient is doing better. Transferred out of ICU. Objective - Vital Signs Vital signs: Vital Signs Temp 98 F 01/08/17 08:00 Pulse 75 01/08/17 10:00 Resp 16 01/08/17 10:00 BP 109/57 01/08/17 10:00 Pulse Ox 93 L 01/08/17 10:00 Intake & Output 01/07/17 01/08/17 01/08/17 18:59 06:59 18:59 Intake Total 1463.675 130 10 Output Total 960 630 140 Balance 503.675 -500 -130 Weight 128.3 kg Intake: IV 220 130 10 Lactated Ringers 1,000 ml 220 130 10 @ 20 mls/hr IV .Q24H [facility] Rx#:[id number] Intake, IV Titration 3.675 Amount Insulin Regular 100 unit 3.675 In Sodium Chloride 0.9% 100 ml @ Per Protocol IV .Q0M [facility] Rx#:[id number] Blood Product 1240 As-1 Unit 310 [id number] As-3 Unit 310 [id number] Output: Chest Tube Drainage 110 115 140 Chest Tube Left Lateral 80 115 140 Chest Chest Tube Mediastinal 30 Drainage 15 Left Lower Calf 15 Urine 850 500 Other: Voiding Method Indwelling Catheter Indwelling Catheter Indwelling Catheter # Voids 0 # Bowel Movements 1 ABP, PAP, CO, CI - Last Documented Arterial Blood Pressure 136/51 Pulmonary Artery Pressure 28/12 Cardiac Output 8.5 Cardiac Index 3.5 - Exam GENERAL: Patient is well developed and well nourished. Patient is nontoxic and well hydrated and is in no acute distress. ENT: Neck is soft and supple. No significant lymphadenopathy noted. Oropharynx clear. Moist mucous membranes. Neck has full range of motion without eliciting any pain. There is no thyroid enlargement and no masses are felt. EYES: Sclerae anicteric. PULMONARY: Unlabored respirations. Diminished air entry bilaterally CARDIOVASCULAR: First and second heart sounds are heard. S2 is normal intensity. No murmur. No gallop. No rubs. No parasternal heave. ABDOMEN: Soft and nontender with normal bowel sounds. No palpable organomegaly noted. There is no palpable pulsatile mass. NEUROLOGIC: Patient is alert and oriented x3. Cranial nerves grossly intact. No focal neurological deficit. MUSCULOSKELETAL: Normal extremities with adequate strength and full range of motion. No lower extremity swelling or edema. No calf tenderness. PSYCHIATRIC: No signs of anxiety. - Labs CBC & Chem 7: 01/08/17 05:12 01/08/17 04:17 Labs: Abnormal Lab Results - Last 24 Hours (Table) 12/30/16 01/07/17 01/07/17 Range/Units 09:20 13:42 16:29 WBC 10.8 H (3.8-10.6) k/uL RBC 1.95 L (4.30-5.90) m/uL Hgb 6.2 L* (13.0-17.5) gm/dL Hct 18.0 L* (39.0-53.0) % Plt Count 109 L (150-450) k/uL Neutrophils # (1.3-7.7) k/uL BUN (9-20) mg/dL Glucose (74-99) mg/dL POC Glucose (mg/dL) 116 H (75-99) mg/dL Calcium (8.4-10.2) mg/dL ALT (21-72) U/L Total Protein (6.3-8.2) g/dL Albumin (3.5-5.0) g/dL Crossmatch See Detail 01/07/17 01/08/17 01/08/17 Range/Units 20:16 00:12 04:14 WBC (3.8-10.6) k/uL RBC (4.30-5.90) m/uL Hgb (13.0-17.5) gm/dL Hct (39.0-53.0) % Plt Count (150-450) k/uL Neutrophils # (1.3-7.7) k/uL BUN (9-20) mg/dL Glucose (74-99) mg/dL POC Glucose (mg/dL) 144 H 112 H 120 H (75-99) mg/dL Calcium (8.4-10.2) mg/dL ALT (21-72) U/L Total Protein (6.3-8.2) g/dL Albumin (3.5-5.0) g/dL Crossmatch 01/08/17 01/08/17 01/08/17 Range/Units 04:17 05:12 11:41 WBC (3.8-10.6) k/uL RBC 2.29 L (4.30-5.90) m/uL Hgb 7.1 L (13.0-17.5) gm/dL Hct 21.0 L (39.0-53.0) % Plt Count 101 L (150-450) k/uL Neutrophils # 8.1 H (1.3-7.7) k/uL BUN 31 H (9-20) mg/dL Glucose 109 H (74-99) mg/dL POC Glucose (mg/dL) 124 H (75-99) mg/dL Calcium 8.1 L (8.4-10.2) mg/dL ALT 16 L (21-72) U/L Total Protein 5.3 L (6.3-8.2) g/dL Albumin 3.1 L (3.5-5.0) g/dL Crossmatch Assessment and Plan Plan: CAD status post CABG Postoperative blood loss Patient is feeling better continue current medications increase his activity
[2017-01-08 16:44] LABS: Glucose,Whole Blood 113 mg/dL (75-99)
[2017-01-08] MEDS: TAMSULOSIN 0.4 MG CAP.ER.24H PO SCH (17:12)
[2017-01-08] MEDS: MONTELUKAST 10 MG TAB PO SCH (20:45)
[2017-01-08] MEDS: SENNOSIDES-DOCUSATE SODIUM 1 EACH TAB PO SCH (20:47)
[2017-01-08 21:10] LABS: Glucose,Whole Blood 106 mg/dL (75-99)
[2017-01-09 01:53] LABS: Glucose,Whole Blood 107 mg/dL (75-99)
[2017-01-09 05:37] LABS: Glucose,Whole Blood 118 mg/dL (75-99)
[2017-01-09] MEDS: HYDROcodone/APAP 7.5-325MG 1 EACH TAB PO PRN ×3 (05:58→20:02)
[2017-01-09 06:03] LABS: Anisocytosis Slight; CH 31.4; CHCM 33.7; HCT 20.1 % (39.0-53.0); HDW 3.16; MCH 30.1 pg (25.0-35.0); MCV 94.1 fL (80.0-100.0); Mean Platelet Volume 9.4; RBC 2.14 m/uL (4.30-5.90); RDW 16.2 % (11.5-15.5); WBC 6.9 k/uL (3.8-10.6)
[2017-01-09 06:10] LABS: HGB 6.4 gm/dL (13.0-17.5)
[2017-01-09] MEDS: KETOROLAC 30 MG/ML 1 ML VIAL IVP SCH ×5 (06:11→23:11)
[2017-01-09 06:13] LABS: ALT 34 U/L (21-72); AST 37 U/L (17-59); Alkaline Phosphatase 74 U/L (38-126); Anion Gap 7 mmol/L; Blood Urea Nitrogen 27 mg/dL (9-20); Calcium 8.2 mg/dL (8.4-10.2); Carbon Dioxide 26 mmol/L (22-30); Chloride 105 mmol/L (98-107); Glucose 98 mg/dL (74-99); Non-African American GFR(MDRD) >60 (>60 ml/min/1.73 sqM); Potassium 3.8 mmol/L (3.5-5.1); Sodium 138 mmol/L (137-145); Total Bilirubin 0.8 mg/dL (0.2-1.3); Total Protein 5.1 g/dL (6.3-8.2)
[2017-01-09] MEDS: INSULIN LISPRO (humaLOG) 300 UNIT/3 ML VIAL SQ SCH ×7 (06:46→21:36)
[2017-01-09] MEDS: FERROUS SULFATE 325 MG TAB PO SCH ×2 (06:58→17:01)
[2017-01-09] MEDS: PANTOPRAZOLE 40 MG TABLET PO SCH ×2 (06:58→17:01)
--- NOTE | 2017-01-09 07:58 | P.PN ---
<Claudia Acuna - Last Filed: 01/09/17 07:53> Subjective Principal diagnosis: Coronary artery disease. Hypertension. Hyperlipidemia. History of myocardial infarction. History of BPH. History of ulcerative colitis with an ileostomy. Distant history of dialysis for 5 days secondary to elevated potassium. Previous tobacco dependence. Family history of myocardial infarction at a young age. COPD. History of gastroparesis. Obesity. POD #4 elective coronary artery bypass grafting 3 vessels, left internal mammary artery to left anterior descending artery, reverse saphenous vein graft to the obtuse marginal artery, reverse saphenous vein graft to the posterior descending artery. Endoscopic vein harvest, bilateral greater saphenous veins. Epi-aortic ultrasound. Intraoperative transesophageal echocardiogram. Closure of sternum using titanium cable system. Postoperative acute blood loss anemia, expected outcome of surgery. Patient currently sitting up in the chair in no acute distress. States pain is controlled, denies shortness of breath. Hemoglobin 6.4 this morning, patient is not tachycardic or hypotensive. Objective - Vital Signs Vital signs: Vital Signs Temp 98.1 F 01/09/17 04:00 Pulse 82 01/09/17 04:00 Resp 18 01/09/17 04:00 BP 132/63 01/09/17 04:00 Pulse Ox 94 L 01/09/17 04:00 Intake & Output 01/08/17 01/09/17 01/09/17 18:59 06:59 18:59 Intake Total 128 360 Output Total 690 900 Balance -562 -900 360 Weight 128.9 kg Intake: IV 10 Lactated Ringers 1,000 ml 10 @ 20 mls/hr IV .Q24H [facility] Rx#:[id number] Oral 118 360 Output: Chest Tube Drainage 140 Chest Tube Left Lateral 140 Chest Urine 550 900 Other: Voiding Method Urinal Urinal # Bowel Movements 1 ABP, PAP, CO, CI - Last Documented Arterial Blood Pressure 136/51 Pulmonary Artery Pressure 28/12 Cardiac Output 8.5 Cardiac Index 3.5 - Constitutional General appearance: Present: cooperative, no acute distress - Respiratory Details: Lungs sounds diminished bilaterally. Respirations even, nonlabored. Currently on 3 L nasal cannula with oxygen saturation 94%. Able to achieve 1750 mL on his incentive spirometry. - Cardiovascular Details: S1, S2 present. Regular rate and rhythm, normal sinus rhythm on telemetry. Sternum stable. Heart hugger in place with patient demonstrating appropriate use. Palpable pulses bilaterally. Trace lower extremity edema present. Teds/ SCDs present. - Gastrointestinal Gastrointestinal Comment(s): Abdomen soft, nontender, nondistended. Active bowel sounds 4 quadrants. Tolerating diet. Right lower quadrant ileostomy present which has been emptied daily. - Genitourinary Genitourinary Comment(s): Continues to void clear, yellow urine. - Integumentary Integumentary Comment(s): Anterior chest incision well approximated, with dry intact dressing. Bilateral lower extremity EVH sites well approximated. - Neurologic Neurologic: Present: CNII-XII intact - Musculoskeletal Musculoskeletal: Present: gait normal, strength equal bilaterally - Psychiatric Psychiatric: Present: A&O x's 3, appropriate affect, intact judgment & insight - Allied health notes Allied health notes reviewed: nursing - Labs CBC & Chem 7: 01/09/17 05:41 01/09/17 05:37 Labs: Abnormal Lab Results - Last 24 Hours (Table) 01/08/17 01/08/17 01/08/17 Range/Units 11:41 16:43 21:08 RBC (4.30-5.90) m/uL Hgb (13.0-17.5) gm/dL Hct (39.0-53.0) % RDW (11.5-15.5) % Plt Count (150-450) k/uL BUN (9-20) mg/dL POC Glucose (mg/dL) 124 H 113 H 106 H (75-99) mg/dL Calcium (8.4-10.2) mg/dL Total Protein (6.3-8.2) g/dL Albumin (3.5-5.0) g/dL 01/09/17 01/09/17 01/09/17 Range/Units 01:52 05:34 05:37 RBC (4.30-5.90) m/uL Hgb (13.0-17.5) gm/dL Hct (39.0-53.0) % RDW (11.5-15.5) % Plt Count (150-450) k/uL BUN 27 H (9-20) mg/dL POC Glucose (mg/dL) 107 H 118 H (75-99) mg/dL Calcium 8.2 L (8.4-10.2) mg/dL Total Protein 5.1 L (6.3-8.2) g/dL Albumin 2.9 L (3.5-5.0) g/dL 01/09/17 Range/Units 05:41 RBC 2.14 L (4.30-5.90) m/uL Hgb 6.4 L* (13.0-17.5) gm/dL Hct 20.1 L (39.0-53.0) % RDW 16.2 H (11.5-15.5) % Plt Count 110 L (150-450) k/uL BUN (9-20) mg/dL POC Glucose (mg/dL) (75-99) mg/dL Calcium (8.4-10.2) mg/dL Total Protein (6.3-8.2) g/dL Albumin (3.5-5.0) g/dL - Imaging and Cardiology Chest x-ray: image reviewed Assessment and Plan (1) Coronary artery disease Status: Acute (2) Hypertension Status: Acute (3) Hyperlipidemia Status: Acute (4) Previous myocardial infarction older than 8 weeks Status: Acute (5) BPH (benign prostatic hyperplasia) Status: Acute (6) Ulcerative colitis Status: Acute (7) Status post ileostomy Status: Acute (8) Tobacco dependence in remission Status: Acute (9) Family history of early CAD Status: Acute (10) COPD (chronic obstructive pulmonary disease) Status: Acute (11) Gastroparesis Status: Acute Plan: 1. Continue aspirin, statin, Plavix, heparin subcu, beta ronni. Will maximize beta ronni therapy as tolerated. 2. Wean O2 as tolerated. Encourage incentive spirometry use. 3. GI/DVT prophylaxis. 4. Iron, vitamin C added. 5. Will monitor daily labs, chest x-rays. Will hold transfusion for now as patient is asymptomatic, will recheck hemoglobin. 6. Insulin management per internal medicine service. 7. Increase activity as tolerated. Physical therapy to follow. 8. Discharge planning in progress. More recommendations as patient progresses. Time with Patient: Greater than 30 <Neal Bailey - Last Filed: 01/09/17 14:15> Objective - Vital Signs Vital signs: Vital Signs Temp 98.1 F 01/09/17 11:58 Pulse 83 01/09/17 11:58 Resp 16 01/09/17 11:58 BP 101/58 01/09/17 11:58 Pulse Ox 92 L 01/09/17 11:58 Intake & Output 01/08/17 01/09/17 01/09/17 18:59 06:59 18:59 Intake Total 128 720 Output Total 690 900 Balance -562 -900 720 Weight 128.9 kg Intake: IV 10 Lactated Ringers 1,000 ml 10 @ 20 mls/hr IV .Q24H [facility] Rx#:[id number] Oral 118 720 Output: Chest Tube Drainage 140 Chest Tube Left Lateral 140 Chest Urine 550 900 Other: Voiding Method Urinal Urinal Toilet Urinal # Voids 1 # Bowel Movements 1 1 ABP, PAP, CO, CI - Last Documented Arterial Blood Pressure 136/51 Pulmonary Artery Pressure 28/12 Cardiac Output 8.5 Cardiac Index 3.5 - Labs CBC & Chem 7: 01/09/17 08:17 01/09/17 05:37 Labs: Abnormal Lab Results - Last 24 Hours (Table) 01/08/17 01/08/17 01/09/17 Range/Units 16:43 21:08 01:52 RBC (4.30-5.90) m/uL Hgb (13.0-17.5) gm/dL Hct (39.0-53.0) % RDW (11.5-15.5) % Plt Count (150-450) k/uL BUN (9-20) mg/dL POC Glucose (mg/dL) 113 H 106 H 107 H (75-99) mg/dL Calcium (8.4-10.2) mg/dL Total Protein (6.3-8.2) g/dL Albumin (3.5-5.0) g/dL 01/09/17 01/09/17 01/09/17 Range/Units 05:34 05:37 05:41 RBC 2.14 L (4.30-5.90) m/uL Hgb 6.4 L* (13.0-17.5) gm/dL Hct 20.1 L (39.0-53.0) % RDW 16.2 H (11.5-15.5) % Plt Count 110 L (150-450) k/uL BUN 27 H (9-20) mg/dL POC Glucose (mg/dL) 118 H (75-99) mg/dL Calcium 8.2 L (8.4-10.2) mg/dL Total Protein 5.1 L (6.3-8.2) g/dL Albumin 2.9 L (3.5-5.0) g/dL 01/09/17 01/09/17 Range/Units 08:17 11:22 RBC 2.32 L (4.30-5.90) m/uL Hgb 7.2 L (13.0-17.5) gm/dL Hct 21.5 L (39.0-53.0) % RDW 16.2 H (11.5-15.5) % Plt Count 144 L (150-450) k/uL BUN (9-20) mg/dL POC Glucose (mg/dL) 117 H (75-99) mg/dL Calcium (8.4-10.2) mg/dL Total Protein (6.3-8.2) g/dL Albumin (3.5-5.0) g/dL Assessment and Plan Plan: The patient was seen and examined. I agree with the above assessment and plan. He is currently hemodynamically stable on room air. His laboratory studies were reviewed. His hemoglobin is stable. We will continue to wean his oxygen. We will encourage ambulation. He is voiding spontaneously. His stool was positive for Hemoccult blood, though there is no obvious bloody drainage from his ostomy bag. We will recheck a hemoglobin in the morning. We will give him a dose of Lasix. He will likely be discharged home tomorrow.
[2017-01-09] MEDS: HEPARIN SODIUM,PORCINE 5,000 UNIT/ML 1 ML VIAL SQ SCH ×3 (08:06→23:11)
[2017-01-09] MEDS: CLOPIDOGREL 75 MG TAB PO SCH (08:07)
[2017-01-09] MEDS: FINASTERIDE 5 MG TAB PO SCH (08:07)
[2017-01-09] MEDS: METOPROLOL TARTRATE 12.5 MG TAB PO SCH ×2 (08:07→20:02)
[2017-01-09] MEDS: ATORVASTATIN 40 MG TAB PO SCH (08:08)
[2017-01-09] MEDS: ASPIRIN 325 MG TAB PO SCH (08:08)
[2017-01-09] MEDS: ASCORBIC ACID 500 MG TAB PO SCH ×2 (08:20→20:02)
[2017-01-09 08:44] LABS: Anisocytosis Slight; CH 31.6; CHCM 34.4; HCT 21.5 % (39.0-53.0); HDW 3.21; HGB 7.2 gm/dL (13.0-17.5); MCH 31.2 pg (25.0-35.0); MCHC 33.6 g/dL (31.0-37.0); MCV 92.7 fL (80.0-100.0); Mean Platelet Volume 8.9; RBC 2.32 m/uL (4.30-5.90); RDW 16.2 % (11.5-15.5); WBC 8.2 k/uL (3.8-10.6)
--- NOTE | 2017-01-09 09:13 | XR ---
EXAMINATION TYPE: XR chest 2V DATE OF EXAM: 01/09/2017 COMPARISON: 01/08/2017 TECHNIQUE: PA and lateral views submitted. HISTORY: Post cardiac surgery Left-sided chest tube is been removed. There is a small left pleural effusion. No sizable pneumothora x seen. Calcified granuloma left upper lobe noted. There is a small right pleural effusion with basilar atelectasis or infiltrate. Heart is enlarged and there is postsurgical change. IMPRESSION: 1. Small bilateral effusion and basilar atelectasis or infiltrate. 2. Chest tube removal with no sizable pneumothorax.
--- NOTE | 2017-01-09 10:22 | P.PN ---
Subjective 61-year-old for BP obese male one of Dr. Webster's patient with past medical history of hypertension, hyperlipidemia, who had RI obstructive sleep apnea had history of colitis post ileostomy with large bowel and rectum removal in the past. Patient had apparently recurrent history of angina and chest pain had heart catheter with Dr. Hdz back in October and was diagnosed with advanced three- vessel coronary artery disease. Patient was seen cardiothoracic and plan for elective surgery he ended up going to the OR today and had a three-vessel bypass surgery. Was placed on mechanical ventilation had 2 chest tube and end up been admitted to the ICU on mechanical ventilation on conscious sedation but hemodynamically stable. Still on insulin drip 3 unit an hour for now 1 blood sugar has been holding well. 01/06: Patient was seen and evaluated today. The patient had an elective surgery yesterday with Dr. Bailey, he performed a GARCIA to the LAD, saphenous vein graft to the marginal artery, saphenous vein graft to the posterior descending artery. The patient was extubated this morning and is doing well. Chest tubes remains in place. The patient was noted to be hyperglycemic and insulin drip was increased to 5.5 units per hour. The patient is hemodynamically stable we'll encourage the incentive spirometer today. 01/07: Patient was seen and evaluated today, he was noted to be sitting up in bed resting comfortably. Patient's hemoglobin noted to have a drop of 5.5 and he is hypotensive at 82/61, patient to receive 2 units of packed red blood cells. Repeat chest x-ray shows basilar atelectasis. He was extubated yesterday without any complications. Will encourage incentive spirometer and increase activity as tolerated, and continue to monitor CBC closely. 01/08: Patient was transfused yesterday with 2 units of packed red blood cells, hemoglobin today is 7.1, blood pressure also improved 119/56. Plans are to remove his mediastinal chest tube and Adhikari catheter today, left pleural drain will remain. Blood sugars have been slightly elevated, Levemir and Humalog were increased. Overall patient is doing well, will continue to use incentive spirometer and increase activity as tolerated. Will also continue to monitor CBC closely. Plan is to move patient from ICU to selective care today. 01/09: Patient was moved from ICU to selective care yesterday, he is doing well. The patient did have a slight drop in his hemoglobin 6.4, he will be transfused with 1 unit RBC's today, ferrous sulfate was added, will continue to monitor CBC closely. Vital signs continue to be stable, blood pressure 113/60, heart rate 76. Chest x-ray shows bilateral small effusion and atelectasis, chest tube removal with no pneumothorax, he'll continue to use incentive spirometer and increase activity as tolerated. He denies any shortness of breath, and overall reports he is feeling okay. Levemir and Humalog were decreased today, blood sugars have been running a little low. Objective - Vital Signs Vital signs: Vital Signs Temp 98.7 F 01/09/17 08:00 Pulse 98 01/09/17 08:00 Resp 16 01/09/17 08:00 BP 105/60 01/09/17 08:00 Pulse Ox 94 L 01/09/17 08:00 Intake & Output 01/08/17 01/09/17 01/09/17 18:59 06:59 18:59 Intake Total 128 360 Output Total 690 900 Balance -562 -900 360 Weight 128.9 kg Intake: IV 10 Lactated Ringers 1,000 ml 10 @ 20 mls/hr IV .Q24H [facility] Rx#:[id number] Oral 118 360 Output: Chest Tube Drainage 140 Chest Tube Left Lateral 140 Chest Urine 550 900 Other: Voiding Method Urinal Urinal # Bowel Movements 1 ABP, PAP, CO, CI - Last Documented Arterial Blood Pressure 136/51 Pulmonary Artery Pressure 28/12 Cardiac Output 8.5 Cardiac Index 3.5 - Exam - Constitutional General appearance: no average body habitus, no cooperative, no disheveled, no mild distress, morbidly obese, no no acute distress, no obese, no severe distress, no thin - EENT Eyes: abnormal pupil, no anicteric sclerae, no disc margins sharp, no edentulous , no EOMI, no PERRLA, no fundus normal, no photophobia, no dentition normal, no poor dentition, no ptosis, no scleral icterus, normal appearance ENT: no hard of hearing, no hearing grossly normal, no NA/AT, no normal oropharynx, no other, no pharyngeal erythema, no thrush, no tonsillar exudates, no tonsillar swelling - Neck Neck: no lymphadenopathy, normal ROM, no other, no rigidity, no stridor, no thyromegaly Carotids: bilateral: upstroke normal Thyroid: bilateral: normal size - Respiratory Respiratory: left: diminished, dullness, rales, rhonchi - Cardiovascular Rhythm: regular Heart sounds: normal: S1, S2 Abnormal Heart Sounds: systolic murmur - Gastrointestinal General gastrointestinal: no absent bowel sounds, no decreased bowel sounds, distended, no hepatomegaly, no hyperactive bowel sounds, normal bowel sounds, no organomegaly, no rigid, no scaphoid, soft, no splenomegaly, no tenderness, no umbilical hernia, no ventral hernia - Integumentary Integumentary: normal, pale, rash - Neurologic Alert and orientated - Musculoskeletal Musculoskeletal: generalized weakness - Labs CBC & Chem 7: 01/09/17 08:17 01/09/17 05:37 Labs: Abnormal Lab Results - Last 24 Hours (Table) 01/08/17 01/08/17 01/08/17 Range/Units 11:41 16:43 21:08 RBC (4.30-5.90) m/uL Hgb (13.0-17.5) gm/dL Hct (39.0-53.0) % RDW (11.5-15.5) % Plt Count (150-450) k/uL BUN (9-20) mg/dL POC Glucose (mg/dL) 124 H 113 H 106 H (75-99) mg/dL Calcium (8.4-10.2) mg/dL Total Protein (6.3-8.2) g/dL Albumin (3.5-5.0) g/dL 01/09/17 01/09/17 01/09/17 Range/Units 01:52 05:34 05:37 RBC (4.30-5.90) m/uL Hgb (13.0-17.5) gm/dL Hct (39.0-53.0) % RDW (11.5-15.5) % Plt Count (150-450) k/uL BUN 27 H (9-20) mg/dL POC Glucose (mg/dL) 107 H 118 H (75-99) mg/dL Calcium 8.2 L (8.4-10.2) mg/dL Total Protein 5.1 L (6.3-8.2) g/dL Albumin 2.9 L (3.5-5.0) g/dL 01/09/17 Range/Units 05:41 RBC 2.14 L (4.30-5.90) m/uL Hgb 6.4 L* (13.0-17.5) gm/dL Hct 20.1 L (39.0-53.0) % RDW 16.2 H (11.5-15.5) % Plt Count 110 L (150-450) k/uL BUN (9-20) mg/dL POC Glucose (mg/dL) (75-99) mg/dL Calcium (8.4-10.2) mg/dL Total Protein (6.3-8.2) g/dL Albumin (3.5-5.0) g/dL Assessment and Plan Plan: 1 CAD post three-vessel CABG: Stable post surgery continue to watch patient hemodynamic status, still managed by pulmonary critical care. 2 acute postsurgical respiratory failure as an expected procedure post open heart surgery continue to manage sent by pulmonary critical care, extubated and doing well. Continue to use incentive spirometer and will follow with repeat chest xrays, chest tube removed. 3 Acute blood loss anemia status post CABG: Expected outcome of surgery, received 2 units of RBCs, hemoglobin has slight drop this morning, he'll be transfused again today with 1 unit of packed RBCs, ferrous sulfate added, vital signs are stable, will monitor CBC closely. 4 hypertension: Metoprolol 12.5 mg twice a day 5 arrhythmia stable no A. fib post surgery. Continue metoprolol 6 hyperglycemia: Patient is off insulin drip, continue Levemir and Humalog, and Accu-Cheks, Levemir and Humalog decreased today due to low blood sugars will continue to monitor glucose closely 7 COPD: Continue patient on DuoNeb. 8 hyperlipidemia: Resume Lipitor at 40 mg daily. 9 BPH: Watch for any urinary retention, catheter discontinued, continue finasteride, patient doing well 10 gastroparesis: Has been on Reglan and PPI resume both medications 11 GI Prophylaxis: continue Protonix 40 mg twice a day 12 DVT prophylaxis: On heparin, Plavix, and compression stockings CODE STATUS: Full code. The above impression and plan of care have been discussed and directed by signing physician. Natalia Lara nurse practitioner acting as scribe for signing physician.
--- NOTE | 2017-01-09 10:35 | P.PN ---
Subjective Principal diagnosis: CABG This is a 61-year-old gentleman with history of hypertension, hyperlipidemia, colitis, who underwent coronary artery bypass grafting surgery, patient had a GARCIA to the LAD, saphenous vein graft to the obtuse marginal and posterior descending artery. Postoperatively patient was having issues with anemia, he was transfused , hemoglobin today is 7.2. Patient seen and examined this morning, sitting up in the chair. Breathing is stable. Objective - Vital Signs Vital signs: Vital Signs Temp 98.7 F 01/09/17 08:00 Pulse 98 01/09/17 08:00 Resp 16 01/09/17 08:00 BP 105/60 01/09/17 08:00 Pulse Ox 94 L 01/09/17 08:00 Intake & Output 01/08/17 01/09/17 01/09/17 18:59 06:59 18:59 Intake Total 128 360 Output Total 690 900 Balance -562 -900 360 Weight 128.9 kg Intake: IV 10 Lactated Ringers 1,000 ml 10 @ 20 mls/hr IV .Q24H [facility] Rx#:[id number] Oral 118 360 Output: Chest Tube Drainage 140 Chest Tube Left Lateral 140 Chest Urine 550 900 Other: Voiding Method Urinal Urinal Toilet Urinal # Bowel Movements 1 ABP, PAP, CO, CI - Last Documented Arterial Blood Pressure 136/51 Pulmonary Artery Pressure 28/12 Cardiac Output 8.5 Cardiac Index 3.5 - Exam PHYSICAL EXAMINATION: HEENT: Head is atraumatic, normocephalic. Pupils equal, round. Neck is supple. There is no elevated jugular venous pressure. HEART EXAMINATION: Heart S1, S2 normal. No murmur or gallop heard. CHEST EXAMINATION: Lungs are clear with mild diminished air entry to the bases. ABDOMEN: Soft, nontender. Bowel sounds are heard. No organomegaly noted. EXTREMITIES: 2+ peripheral pulses with no evidence of peripheral edema and no calf tenderness noted. NEUROLOGIC patient is awake, alert and oriented -3. . - Labs CBC & Chem 7: 01/09/17 08:17 01/09/17 05:37 Labs: Abnormal Lab Results - Last 24 Hours (Table) 01/08/17 01/08/17 01/08/17 Range/Units 11:41 16:43 21:08 RBC (4.30-5.90) m/uL Hgb (13.0-17.5) gm/dL Hct (39.0-53.0) % RDW (11.5-15.5) % Plt Count (150-450) k/uL BUN (9-20) mg/dL POC Glucose (mg/dL) 124 H 113 H 106 H (75-99) mg/dL Calcium (8.4-10.2) mg/dL Total Protein (6.3-8.2) g/dL Albumin (3.5-5.0) g/dL 01/09/17 01/09/17 01/09/17 Range/Units 01:52 05:34 05:37 RBC (4.30-5.90) m/uL Hgb (13.0-17.5) gm/dL Hct (39.0-53.0) % RDW (11.5-15.5) % Plt Count (150-450) k/uL BUN 27 H (9-20) mg/dL POC Glucose (mg/dL) 107 H 118 H (75-99) mg/dL Calcium 8.2 L (8.4-10.2) mg/dL Total Protein 5.1 L (6.3-8.2) g/dL Albumin 2.9 L (3.5-5.0) g/dL 01/09/17 01/09/17 Range/Units 05:41 08:17 RBC 2.14 L 2.32 L (4.30-5.90) m/uL Hgb 6.4 L* 7.2 L (13.0-17.5) gm/dL Hct 20.1 L 21.5 L (39.0-53.0) % RDW 16.2 H 16.2 H (11.5-15.5) % Plt Count 110 L 144 L (150-450) k/uL BUN (9-20) mg/dL POC Glucose (mg/dL) (75-99) mg/dL Calcium (8.4-10.2) mg/dL Total Protein (6.3-8.2) g/dL Albumin (3.5-5.0) g/dL Assessment and Plan Plan: Assessment and Plan Plan: 1 CAD post three-vessel CAB Acute postsurgical respiratory failure 3 Acute blood loss anemia status post CAB hypertension: 5 Diabetes 6 COPD 7 hyperlipidemia 8BPH From cardiology's perspective, we will recommend to continue patient on his current medications. He has been encouraged regarding the regular use of incentive spirometry. DNP note has been reviewed, I agree with a documented findings and plan of care. Patient was seen and examined.
--- NOTE | 2017-01-09 10:42 | P.PN ---
Subjective This is a very pleasant 61-year-old gentleman who follows with Dr. Webster as his primary care physician. He has a history of hypertension, hyperlipidemia, coronary artery disease, obstructive sleep apnea, colitis status post with subtotal colectomy with ileostomy. He had undergone cardiac catheterization by Dr. Hdz on 11/18/2016 for recurrent angina. He was found to have advanced triple-vessel disease and was recommended coronary artery bypass grafting. He presented here yesterday for an elective surgery with Dr. Bailey. This is postoperative day #1. He performed a GARCIA to the LAD, saphenous vein graft to the obtuse marginal artery, saphenous vein graft to the posterior descending artery. Presently he remains intubated on the mechanical ventilator. Assist control of 20, tidal volume 550, FiO2 40% and a PEEP of 5. Morning blood gases reveal a pO2 of 71, pCO2 of 28, pH 7.46. He was extubated earlier because he did not have a cuff leak. He has been sedated with the program. He isn't on a insulin drip at 5.5 units per hour. Lactated Ringer at 50 MLS per hour. No other drips. His cardiac index is 2.7. PA pressures 30/14, CVP 9. Urine output adequate at 40-60 mL's per hour. Chest tubes remain in place mediastinal 2, left pleural. Chest x-ray shows some bibasilar atelectasis left greater than right. He does have a known left upper lobe calcified nodule that's been present and stable since 2014. No leukocytosis. Hemoglobin 6.8. Platelet count 109,000. Electrolytes and creatinine stable. The patient is seen again today 01/07/2017 in follow-up in the intensive care unit. He is currently up in the chair at the bedside. He is doing well. He denies any worsening shortness of breath, cough or congestion. He is working well at the incentive spirometer. His chest x-ray continues to show some basilar atelectasis. Chest tubes remain in place. No sizable pneumothorax. He is maintaining good O2 saturations in the mid to upper 90s on 6 L/m per nasal cannula. He's been afebrile. He did have a drop in his hemoglobin to 5.5. He is receiving 1 unit of packed red blood cells. Electrolytes and renal function are stable. The patient is seen again today 01/09/2017 in follow-up on the selective care unit. He is currently sitting up in a chair at bedside. He is awake and alert in no acute distress. He's been up ambulating with assistance. He is maintaining good O2 saturations in the 90s on 3 L/m per nasal cannula. He denies any worsening shortness of breath, cough or congestion. His chest x-ray reveals small bilateral pleural effusions. No sizable pneumothorax. His current hemoglobin is 7.2. Objective - Vital Signs Vital signs: Vital Signs Temp 98.7 F 01/09/17 08:00 Pulse 98 01/09/17 08:00 Resp 16 01/09/17 08:00 BP 105/60 01/09/17 08:00 Pulse Ox 94 L 01/09/17 08:00 Intake & Output 01/08/17 01/09/17 01/09/17 18:59 06:59 18:59 Intake Total 128 360 Output Total 690 900 Balance -562 -900 360 Weight 128.9 kg Intake: IV 10 Lactated Ringers 1,000 ml 10 @ 20 mls/hr IV .Q24H [facility] Rx#:[id number] Oral 118 360 Output: Chest Tube Drainage 140 Chest Tube Left Lateral 140 Chest Urine 550 900 Other: Voiding Method Urinal Urinal Toilet Urinal # Bowel Movements 1 ABP, PAP, CO, CI - Last Documented Arterial Blood Pressure 136/51 Pulmonary Artery Pressure 28/12 Cardiac Output 8.5 Cardiac Index 3.5 - Exam GENERAL EXAM: Awake, alert. Fairly comfortable in no apparent distress. HEAD: Normocephalic. EYES: Normal reaction of pupils, equal size. NOSE: Clear with pink turbinates. THROAT: Endotracheal, gastric tube secured in place NECK: No masses, no JVD. CHEST: General dressing dry and intact. LUNGS: Equal air entry with faint crackles in the posterior bases. CVS: S1 and S2 normal with no audible murmurs, regular rhythm. ABDOMEN: No hepatosplenomegaly, normal bowel sounds, no guarding or rigidity. SPINE: No scoliosis or deformity SKIN: No rashes Extremities: There is trace peripheral edema. JOSE hose in place. Peripheral pulses are intact. - Labs CBC & Chem 7: 01/09/17 08:17 01/09/17 05:37 Labs: Abnormal Lab Results - Last 24 Hours (Table) 01/08/17 01/08/17 01/08/17 Range/Units 11:41 16:43 21:08 RBC (4.30-5.90) m/uL Hgb (13.0-17.5) gm/dL Hct (39.0-53.0) % RDW (11.5-15.5) % Plt Count (150-450) k/uL BUN (9-20) mg/dL POC Glucose (mg/dL) 124 H 113 H 106 H (75-99) mg/dL Calcium (8.4-10.2) mg/dL Total Protein (6.3-8.2) g/dL Albumin (3.5-5.0) g/dL 01/09/17 01/09/17 01/09/17 Range/Units 01:52 05:34 05:37 RBC (4.30-5.90) m/uL Hgb (13.0-17.5) gm/dL Hct (39.0-53.0) % RDW (11.5-15.5) % Plt Count (150-450) k/uL BUN 27 H (9-20) mg/dL POC Glucose (mg/dL) 107 H 118 H (75-99) mg/dL Calcium 8.2 L (8.4-10.2) mg/dL Total Protein 5.1 L (6.3-8.2) g/dL Albumin 2.9 L (3.5-5.0) g/dL 01/09/17 01/09/17 Range/Units 05:41 08:17 RBC 2.14 L 2.32 L (4.30-5.90) m/uL Hgb 6.4 L* 7.2 L (13.0-17.5) gm/dL Hct 20.1 L 21.5 L (39.0-53.0) % RDW 16.2 H 16.2 H (11.5-15.5) % Plt Count 110 L 144 L (150-450) k/uL BUN (9-20) mg/dL POC Glucose (mg/dL) (75-99) mg/dL Calcium (8.4-10.2) mg/dL Total Protein (6.3-8.2) g/dL Albumin (3.5-5.0) g/dL Assessment and Plan Plan: Impression: #1 Coronary artery disease status post coronary artery bypass grafting utilizing a GARCIA to the LAD, saphenous vein grafts to the obtuse marginal and posterior descending arteries. Postoperative day #4. #2 Ventilator dependence as an expected outcome of thoracotomy. Recovered. #3 Anemia as an expected outcome of thoracotomy. #4 Hypertension, history of. #5 Hyperlipidemia. #6 Previous myocardial infarction. #7 Benign prosthetic hypertrophy. #8 Ulcerative colitis status post ileostomy. Plan: The patient was seen and evaluated by Dr. Yadav. His chest x-ray and labs were reviewed. We will increase his activity as tolerated. We'll continue to follow. The patient was seen and examined by the signing physician. The history and physical along with the plan of care were reviewed together. Lung sounds with faint bibasilar crackles. Diminished.
[2017-01-09 11:26] LABS: Glucose,Whole Blood 117 mg/dL (75-99)
[2017-01-09] MEDS: CHOLECALCIFEROL 1,000 UNIT TAB PO SCH (12:01)
[2017-01-09] MEDS: MULTIVITAMINS, THERA 1 EACH TAB PO SCH (12:02)
[2017-01-09] MEDS ORDERED: FUROSEMIDE 10 MG/ML 2 ML VIAL IV STA (13:52)
[2017-01-09 16:22] LABS: Glucose,Whole Blood 115 mg/dL (75-99)
[2017-01-09] MEDS: TAMSULOSIN 0.4 MG CAP.ER.24H PO SCH (18:31)
[2017-01-09] MEDS: SENNOSIDES-DOCUSATE SODIUM 1 EACH TAB PO SCH (20:03)
[2017-01-09] MEDS: MONTELUKAST 10 MG TAB PO SCH (20:03)
[2017-01-09 21:12] LABS: Glucose,Whole Blood 142 mg/dL (75-99)
[2017-01-10] MEDS: HYDROcodone/APAP 7.5-325MG 1 EACH TAB PO PRN ×5 (00:48→21:11)
[2017-01-10 02:08] LABS: Glucose,Whole Blood 116 mg/dL (75-99)
[2017-01-10 06:26] LABS: Glucose,Whole Blood 110 mg/dL (75-99)
[2017-01-10] MEDS: INSULIN LISPRO (humaLOG) 300 UNIT/3 ML VIAL SQ SCH ×7 (06:32→21:42)
[2017-01-10 06:34] LABS: CH 30.8; CHCM 32.8; HCT 20.5 % (39.0-53.0); HDW 3.17; MCH 30.6 pg (25.0-35.0); MCHC 32.3 g/dL (31.0-37.0); MCV 94.9 fL (80.0-100.0); RBC 2.16 m/uL (4.30-5.90); RDW 15.6 % (11.5-15.5); WBC 7.1 k/uL (3.8-10.6)
[2017-01-10 06:37] LABS: HGB 6.6 gm/dL (13.0-17.5)
[2017-01-10] MEDS: PANTOPRAZOLE 40 MG TABLET PO SCH ×2 (06:39→17:26)
[2017-01-10] MEDS: FERROUS SULFATE 325 MG TAB PO SCH ×2 (06:39→17:26)
[2017-01-10] MEDS: KETOROLAC 30 MG/ML 1 ML VIAL IVP SCH (06:39)
[2017-01-10 06:41] LABS: ALT 47 U/L (21-72); AST 45 U/L (17-59); Alkaline Phosphatase 100 U/L (38-126); Anion Gap 10 mmol/L; Blood Urea Nitrogen 23 mg/dL (9-20); Calcium 8.4 mg/dL (8.4-10.2); Carbon Dioxide 25 mmol/L (22-30); Chloride 106 mmol/L (98-107); Glucose 100 mg/dL (74-99); Non-African American GFR(MDRD) >60 (>60 ml/min/1.73 sqM); Potassium 3.8 mmol/L (3.5-5.1); Sodium 141 mmol/L (137-145); Total Bilirubin 0.9 mg/dL (0.2-1.3); Total Protein 5.3 g/dL (6.3-8.2)
--- NOTE | 2017-01-10 06:48 | XR ---
EXAMINATION TYPE: XR chest 2V DATE OF EXAM: 01/10/2017 HISTORY: post cardiac surgery. REFERENCE: Previous study dated 01/09/2017. FINDINGS: There has been a midline sternotomy. There is platelike atelectasis in the left midlung. The lungs are otherwise clear. There is vascular congestion without lili edema. I cannot exclude small, bilateral effusions. There is underlying COPD . IMPRESSION: CONTINUING POSTOPERATIVE CHANGE.
[2017-01-10] MEDS ORDERED: POTASSIUM CHLORIDE ER 20 MEQ TAB.ER PO ONE (08:00)
[2017-01-10] MEDS: ASCORBIC ACID 500 MG TAB PO SCH ×2 (08:02→21:12)
[2017-01-10] MEDS: ASPIRIN 325 MG TAB PO SCH (08:02)
[2017-01-10] MEDS: CLOPIDOGREL 75 MG TAB PO SCH (08:03)
[2017-01-10] MEDS: ATORVASTATIN 40 MG TAB PO SCH (08:04)
[2017-01-10] MEDS: FINASTERIDE 5 MG TAB PO SCH (08:04)
[2017-01-10] MEDS: INSULIN DETEMIR 100 UNIT/ML 10 ML VIAL SQ SCH (08:11)
[2017-01-10] MEDS: METOPROLOL TARTRATE 25 MG TAB PO SCH ×2 (08:11→21:12)
[2017-01-10 08:20] LABS: CH 30.8; CHCM 33.1; HCT 20.8 % (39.0-53.0); HDW 3.31; MCH 31.1 pg (25.0-35.0); MCHC 33.2 g/dL (31.0-37.0); MCV 93.8 fL (80.0-100.0); Mean Platelet Volume 8.3; RBC 2.21 m/uL (4.30-5.90); RDW 15.7 % (11.5-15.5); WBC 7.1 k/uL (3.8-10.6)
[2017-01-10 08:31] LABS: HGB 6.9 gm/dL (13.0-17.5)
--- NOTE | 2017-01-10 08:56 | P.PN ---
Subjective Principal diagnosis: Coronary artery disease. Hypertension. Hyperlipidemia. History of myocardial infarction. History of BPH. History of ulcerative colitis with an ileostomy. Distant history of dialysis for 5 days secondary to elevated potassium. History of tobacco dependence. Family history of myocardial infarction at a young age. COPD. History of gastroparesis. Obesity. POD #5 elective coronary artery bypass grafting 3 vessels, left internal mammary artery to left anterior descending artery, reverse saphenous vein graft to the obtuse marginal artery, reverse saphenous vein graft to the posterior descending artery. Endoscopic vein harvest, bilateral greater saphenous veins. Epi-aortic ultrasound. Intraoperative transesophageal echocardiogram. Closure of sternum using titanium cable system. Postoperative acute blood loss anemia, expected outcome of surgery. Patient currently sitting up in his bed. No acute distress. Denies complaints of pain at this time. Patient's hemoglobin is 6.6 this a.m., no tachycardia or hypotension at this time. Positive occult stool yesterday 01/09/2017. Patient reports he ambulated in the hallway yesterday without difficulty 2-3 times the nurse's station on 6 E. and back to his room. Objective - Vital Signs Vital signs: Vital Signs Temp 97.7 F 01/10/17 04:00 Pulse 80 01/10/17 04:00 Resp 18 01/10/17 04:00 BP 125/66 01/10/17 04:00 Pulse Ox 95 01/10/17 08:10 Intake & Output 01/09/17 01/10/17 01/10/17 18:59 06:59 18:59 Intake Total 1080 180 Output Total 550 900 Balance 530 -900 180 Weight 128.2 kg Intake: Oral 1080 180 Output: Urine 550 900 Other: Voiding Method Toilet Toilet Urinal Urinal # Voids 1 # Bowel Movements 1 1 ABP, PAP, CO, CI - Last Documented Arterial Blood Pressure 136/51 Pulmonary Artery Pressure 28/12 Cardiac Output 8.5 Cardiac Index 3.5 - Constitutional General appearance: Present: cooperative, no acute distress, obese - EENT Eyes: Present: PERRLA, normal appearance - Neck Details: No JVD, no lymphadenopathy. - Respiratory Details: Lungs sounds essentially clear throughout, diminished his bilateral bases. Respirations are symmetrical and nonlabored. Oxygen saturation are 95% on room air. He is achieving 2000 mL on his incentive spirometry. - Cardiovascular Details: Regular rhythm and rate. S1 and S2 present, negative for S3, gallop or murmur. Remote telemetry showing normal sinus rhythm heart rate 90. Sternum is stable. Heart hugger in place and patient is demonstrating appropriate use. No edema present. Knee-high JOSE hose and sequential compression devices in place to his bilateral lower extremities. - Gastrointestinal Gastrointestinal Comment(s): Abdomen is soft, nontender and nondistended. Active bowel sounds to all 4 abdominal quadrants. He is tolerating oral intake. Right lower abdominal quadrant ileostomy present and is emptied when necessary. - Genitourinary Genitourinary Comment(s): Voiding clear yellow urine. 700 mL of output in the last 8 hours documented. - Integumentary Integumentary Comment(s): Midline sternal incision clean dry and well approximated. Dermabond dressing dry and intact. Bilateral lower extremity EVH sites well approximated, Dermabond dressing clean and dry. No drainage noted. Large ecchymotic area to his right groin and thigh. Soft to palpate. Integumentary: Present: normal, normal turgor - Neurologic Neurologic Comment(s): No focal deficits. Neurologic: Present: CNII-XII intact - Musculoskeletal Musculoskeletal: Present: gait normal, strength equal bilaterally - Psychiatric Psychiatric: Present: A&O x's 3, appropriate affect, intact judgment & insight - Allied health notes Allied health notes reviewed: nursing - Labs CBC & Chem 7: 01/10/17 08:00 01/10/17 05:32 Labs: Abnormal Lab Results - Last 24 Hours (Table) 01/09/17 01/09/17 01/09/17 Range/Units 08:17 11:22 16:13 RBC 2.32 L (4.30-5.90) m/uL Hgb 7.2 L (13.0-17.5) gm/dL Hct 21.5 L (39.0-53.0) % RDW 16.2 H (11.5-15.5) % Plt Count 144 L (150-450) k/uL BUN (9-20) mg/dL Glucose (74-99) mg/dL POC Glucose (mg/dL) 117 H 115 H (75-99) mg/dL Total Protein (6.3-8.2) g/dL Albumin (3.5-5.0) g/dL 01/09/17 01/10/17 01/10/17 Range/Units 20:57 02:06 05:32 RBC (4.30-5.90) m/uL Hgb (13.0-17.5) gm/dL Hct (39.0-53.0) % RDW (11.5-15.5) % Plt Count (150-450) k/uL BUN 23 H (9-20) mg/dL Glucose 100 H (74-99) mg/dL POC Glucose (mg/dL) 142 H 116 H (75-99) mg/dL Total Protein 5.3 L (6.3-8.2) g/dL Albumin 3.1 L (3.5-5.0) g/dL 01/10/17 01/10/17 Range/Units 05:36 06:24 RBC 2.16 L (4.30-5.90) m/uL Hgb 6.6 L* (13.0-17.5) gm/dL Hct 20.5 L (39.0-53.0) % RDW 15.6 H (11.5-15.5) % Plt Count 137 L (150-450) k/uL BUN (9-20) mg/dL Glucose (74-99) mg/dL POC Glucose (mg/dL) 110 H (75-99) mg/dL Total Protein (6.3-8.2) g/dL Albumin (3.5-5.0) g/dL - Imaging and Cardiology Chest x-ray: report reviewed, image reviewed Assessment and Plan Plan: 1. Continue aspirin, statin, Plavix, heparin subcu, beta ronni. Will increase his metoprolol to 25 mg by mouth twice a day. 2. Encourage incentive spirometry use every hour while awake. 3. GI/DVT prophylaxis. 4. Continue Iron and vitamin C. 5. Will monitor daily labs, chest x-rays. Will hold off on a transfusion for now as patient is asymptomatic, will recheck hemoglobin in the a.m. 6. Insulin management per internal medicine service. 7. Increase activity as tolerated. Physical therapy following. 8. Discharge planning in progress. Anticipate discharge within the next 24 hours. Time with Patient: Greater than 30
[2017-01-10] MEDS: HEPARIN SODIUM,PORCINE 5,000 UNIT/ML 1 ML VIAL SQ SCH ×3 (11:03→23:26)
[2017-01-10] MEDS: MULTIVITAMINS, THERA 1 EACH TAB PO SCH (11:07)
[2017-01-10] MEDS: CHOLECALCIFEROL 1,000 UNIT TAB PO SCH (11:07)
--- NOTE | 2017-01-10 11:14 | PN ---
PROGRESS NOTE INTERVAL HISTORY: Patient continued to be hemodynamically stable. No major events reported overnight. Patient's hemoglobin was found to be 6.9 this morning. up from 6.6 on previous study. Patient hemodynamics continued to be stable over the last 24 hours. Currently, sitting up in chair, tolerating his breakfast without difficulty. Patient is denying any chest pain, shortness of breath, nausea, vomiting, abdominal pain, dizziness, lightheadedness, or blurry vision. PHYSICAL EXAMINATION: VITAL SIGNS: 97.7, 80, 18, 125/66, and saturation is 95% on room air. LUNGS: Diminished bilaterally. HEART: Normal S1, S2. ABDOMEN: Soft, nontender. Bowel sounds in all 4 quadrants. LOWER EXTREMITY: Wound seems to be clean, intact and dry. IMAGING AND LABS: CBC showed hemoglobin as above. Stable otherwise. Chem 7 showed normal findings. Liver function tests within acceptable range. Albumin is slightly low at 3.1. ASSESSMENT AND PLAN: 1. Status post open heart surgery. Will continue per Surgery recommendation. 2. Blood-loss anemia. Hemoglobin is 6.9 on the repeat from 6.6. Primary team evaluated the patient and recommended conservative management at this point. 3. Hypertension, metoprolol dose was adjusted. Will follow up with Cardiology recommendation. 4. Chronic obstructive pulmonary disease. Will continue breathing treatment as needed. 5. Hyperlipidemia, will continue Lipitor. 6. Benign prostatic hypertrophy. Will continue finasteride and voiding trials. 7. Discharge process in the morning based on clinical progress. MMODL / IJN: [id number] /
--- NOTE | 2017-01-10 11:34 | P.PN ---
Subjective Principal diagnosis: CABG This is a 61-year-old gentleman with history of hypertension, hyperlipidemia, colitis, who underwent coronary artery bypass grafting surgery, patient had a GARCIA to the LAD, saphenous vein graft to the obtuse marginal and posterior descending artery. Postoperatively patient was having issues with anemia, he was transfused , hemoglobin today is 7.2. Patient seen and examined this morning, sitting up in the chair. Breathing is stable. 01/10/2017 Patient seen and examined this morning, doing well overall. Hemoglobin this morning 6.9. No tachycardia or hypotension. Positive occult blood stool. Blood pressure 128/60 with heart rate in the 70s. Patient has been up ambulating in the hallway without any difficulty. Objective - Vital Signs Vital signs: Vital Signs Temp 97.4 F L 01/10/17 08:00 Pulse 80 01/10/17 08:00 Resp 18 01/10/17 08:00 BP 128/60 01/10/17 08:00 Pulse Ox 95 01/10/17 08:10 Intake & Output 01/09/17 01/10/17 01/10/17 18:59 06:59 18:59 Intake Total 1080 180 Output Total 550 900 Balance 530 -900 180 Weight 128.2 kg Intake: Oral 1080 180 Output: Urine 550 900 Other: Voiding Method Toilet Toilet Toilet Urinal Urinal Urinal # Voids 1 # Bowel Movements 1 1 ABP, PAP, CO, CI - Last Documented Arterial Blood Pressure 136/51 Pulmonary Artery Pressure 28/12 Cardiac Output 8.5 Cardiac Index 3.5 - Exam PHYSICAL EXAMINATION: HEENT: Head is atraumatic, normocephalic. Pupils equal, round. Neck is supple. There is no elevated jugular venous pressure. HEART EXAMINATION: Heart S1, S2 normal. No murmur or gallop heard. CHEST EXAMINATION: Lungs are clear with mild diminished air entry to the bases. ABDOMEN: Soft, nontender. Bowel sounds are heard. No organomegaly noted. EXTREMITIES: 2+ peripheral pulses with no evidence of peripheral edema and no calf tenderness noted. NEUROLOGIC patient is awake, alert and oriented -3. . - Labs CBC & Chem 7: 01/10/17 08:00 01/10/17 05:32 Labs: Abnormal Lab Results - Last 24 Hours (Table) 01/09/17 01/09/17 01/10/17 Range/Units 16:13 20:57 02:06 RBC (4.30-5.90) m/uL Hgb (13.0-17.5) gm/dL Hct (39.0-53.0) % RDW (11.5-15.5) % Plt Count (150-450) k/uL BUN (9-20) mg/dL Glucose (74-99) mg/dL POC Glucose (mg/dL) 115 H 142 H 116 H (75-99) mg/dL Total Protein (6.3-8.2) g/dL Albumin (3.5-5.0) g/dL 01/10/17 01/10/17 01/10/17 Range/Units 05:32 05:36 06:24 RBC 2.16 L (4.30-5.90) m/uL Hgb 6.6 L* (13.0-17.5) gm/dL Hct 20.5 L (39.0-53.0) % RDW 15.6 H (11.5-15.5) % Plt Count 137 L (150-450) k/uL BUN 23 H (9-20) mg/dL Glucose 100 H (74-99) mg/dL POC Glucose (mg/dL) 110 H (75-99) mg/dL Total Protein 5.3 L (6.3-8.2) g/dL Albumin 3.1 L (3.5-5.0) g/dL 01/10/17 Range/Units 08:00 RBC 2.21 L (4.30-5.90) m/uL Hgb 6.9 L* (13.0-17.5) gm/dL Hct 20.8 L (39.0-53.0) % RDW 15.7 H (11.5-15.5) % Plt Count 148 L (150-450) k/uL BUN (9-20) mg/dL Glucose (74-99) mg/dL POC Glucose (mg/dL) (75-99) mg/dL Total Protein (6.3-8.2) g/dL Albumin (3.5-5.0) g/dL Assessment and Plan Plan: Assessment and Plan Plan: 1 CAD post three-vessel CAB Acute postsurgical respiratory failure 3 Acute blood loss anemia status post CAB hypertension: 5 Diabetes 6 COPD 7 hyperlipidemia 8 BPH From cardiology's perspective, we will recommend to continue patient on his current medications. Planning for discharge home tomorrow. Continue to monitor hemoglobin closely. DNP note has been reviewed, I agree with a documented findings and plan of care. Patient was seen and examined.
[2017-01-10 12:04] LABS: Glucose,Whole Blood 107 mg/dL (75-99)
--- NOTE | 2017-01-10 12:24 | P.PN ---
Subjective Progress note dated 01/08/2017 This is a 61-year-old male who is seen today in the intensive care unit. He has a history of coronary artery disease and is status post three-vessel bypass grafting, postop day #3. He had postsurgical ventilator dependence which is resolved anemia hypertension hyperlipidemia previous myocardial infarction BPH and also of colitis, status post ileostomy. The patient's doing reasonably well. He is receiving O2 at 4 L. No IV fluids. He'll be able to move out of the ICU today. Chest x-ray shows postsurgical changes. He's got some mild basilar atelectasis and some small pleural effusions. Progress note dated 01/10/2017 61-year-old male postop day #5 status post three-vessel bypass grafting. He's got postsurgical ventilator dependence which is covered as well as a history of anemia hypertension hyperlipidemia previous myocardial infarction BPH colitis and previous ileostomy. He apparently going to be discharged home probably tomorrow. No pain no shortness of breath. Not producing any phlegm. No fever no chills. No nausea vomiting or diarrhea. He has been weaned off of oxygen therapy. Objective - Vital Signs Vital signs: Vital Signs Temp 97.4 F L 01/10/17 12:00 Pulse 80 01/10/17 12:00 Resp 16 01/10/17 12:00 BP 116/48 01/10/17 12:00 Pulse Ox 96 01/10/17 12:00 Intake & Output 01/09/17 01/10/17 01/10/17 18:59 06:59 18:59 Intake Total 1080 180 Output Total 550 900 300 Balance 530 -900 -120 Weight 128.2 kg Intake: Oral 1080 180 Output: Urine 550 900 300 Other: Voiding Method Toilet Toilet Toilet Urinal Urinal Urinal # Voids 1 1 # Bowel Movements 1 1 ABP, PAP, CO, CI - Last Documented Arterial Blood Pressure 136/51 Pulmonary Artery Pressure 28/12 Cardiac Output 8.5 Cardiac Index 3.5 - Exam No acute distress, oriented 3. HEENT examination is grossly unremarkable. Mucous membranes are moist. No oral lesions. Neck supple. Full range of motion. No adenopathy or thyromegaly. Neck veins are flat. Cardiovascular examination reveals regular rhythm rate. S1-S2 normal. No S3- S4 or murmur. Lungs reveal mostly clear breath sounds. A few scattered rhonchi. No wheezes or crackles. Abdomen soft bowel sounds are heard. No masses or tenderness. Extremities are intact. No cyanosis clubbing or edema. Skin without rash. Neurologic examination is nonfocal. - Labs CBC & Chem 7: 01/10/17 08:00 01/10/17 05:32 Labs: Abnormal Lab Results - Last 24 Hours (Table) 01/09/17 01/09/17 01/10/17 Range/Units 16:13 20:57 02:06 RBC (4.30-5.90) m/uL Hgb (13.0-17.5) gm/dL Hct (39.0-53.0) % RDW (11.5-15.5) % Plt Count (150-450) k/uL BUN (9-20) mg/dL Glucose (74-99) mg/dL POC Glucose (mg/dL) 115 H 142 H 116 H (75-99) mg/dL Total Protein (6.3-8.2) g/dL Albumin (3.5-5.0) g/dL 01/10/17 01/10/17 01/10/17 Range/Units 05:32 05:36 06:24 RBC 2.16 L (4.30-5.90) m/uL Hgb 6.6 L* (13.0-17.5) gm/dL Hct 20.5 L (39.0-53.0) % RDW 15.6 H (11.5-15.5) % Plt Count 137 L (150-450) k/uL BUN 23 H (9-20) mg/dL Glucose 100 H (74-99) mg/dL POC Glucose (mg/dL) 110 H (75-99) mg/dL Total Protein 5.3 L (6.3-8.2) g/dL Albumin 3.1 L (3.5-5.0) g/dL 01/10/17 01/10/17 Range/Units 08:00 11:35 RBC 2.21 L (4.30-5.90) m/uL Hgb 6.9 L* (13.0-17.5) gm/dL Hct 20.8 L (39.0-53.0) % RDW 15.7 H (11.5-15.5) % Plt Count 148 L (150-450) k/uL BUN (9-20) mg/dL Glucose (74-99) mg/dL POC Glucose (mg/dL) 107 H (75-99) mg/dL Total Protein (6.3-8.2) g/dL Albumin (3.5-5.0) g/dL Assessment and Plan (1) Anemia Status: Acute (2) Ventilator dependence Status: Acute (3) BPH (benign prostatic hyperplasia) Status: Acute (4) Coronary artery disease Status: Acute (5) Family history of early CAD Status: Acute (6) Hyperlipidemia Status: Acute (7) Hypertension Status: Acute (8) Previous myocardial infarction older than 8 weeks Status: Acute (9) Status post ileostomy Status: Acute (10) Tobacco dependence in remission Status: Acute (11) Ulcerative colitis Status: Acute Plan: Plan dated 01/08/2017 The patient's doing well. We continue to encourage deep breathing coughing clearing of secretions. The patient should continue using his incentive spirometer every hour while awake. The patient is likely to be moved out of the ICU today. The patient not receiving any IV fluids. O2 his been weaned down to 4 L nasal cannula. Prognosis remains guarded Plan dated 01/10/2017 The patient is doing well. No additional recommendations are made. We'll continue to follow as needed. Respiratory status is stable. Should be discharged home in the next 24-48 hours. Time with Patient: Less than 30
[2017-01-10] MEDS: FOLIC ACID 1 MG TAB PO SCH (12:33)
[2017-01-10 17:04] LABS: Glucose,Whole Blood 102 mg/dL (75-99)
[2017-01-10] MEDS: TAMSULOSIN 0.4 MG CAP.ER.24H PO SCH (17:26)
[2017-01-10] MEDS: MONTELUKAST 10 MG TAB PO SCH (21:12)
[2017-01-10] MEDS: SENNOSIDES-DOCUSATE SODIUM 1 EACH TAB PO SCH (21:12)
[2017-01-10 21:28] LABS: Glucose,Whole Blood 140 mg/dL (75-99)
[2017-01-10 21:43] VITALS: RESP 18
[2017-01-11 01:54] LABS: Glucose,Whole Blood 104 mg/dL (75-99)
[2017-01-11] MEDS: HYDROcodone/APAP 7.5-325MG 1 EACH TAB PO PRN ×3 (03:46→12:22)
[2017-01-11 06:06] LABS: Glucose,Whole Blood 115 mg/dL (75-99)
[2017-01-11 06:07] LABS: ALT 51 U/L (21-72); AST 39 U/L (17-59); Alkaline Phosphatase 99 U/L (38-126); Anion Gap 7 mmol/L; Anisocytosis Slight; Blood Urea Nitrogen 14 mg/dL (9-20); CH 31.4; CHCM 33.5; Calcium 8.5 mg/dL (8.4-10.2); Carbon Dioxide 26 mmol/L (22-30); Chloride 106 mmol/L (98-107); Glucose 105 mg/dL (74-99); HCT 20.2 % (39.0-53.0); HDW 3.49; Hypochromasia Slight; MCH 30.8 pg (25.0-35.0); MCHC 32.6 g/dL (31.0-37.0); MCV 94.5 fL (80.0-100.0); Mean Platelet Volume 8.6; Non-African American GFR(MDRD) >60 (>60 ml/min/1.73 sqM); Poikilocytosis Slight; Potassium 4.3 mmol/L (3.5-5.1); RBC 2.14 m/uL (4.30-5.90); RDW 16.8 % (11.5-15.5); Sodium 139 mmol/L (137-145); Total Bilirubin 1.1 mg/dL (0.2-1.3); Total Protein 5.4 g/dL (6.3-8.2)
[2017-01-11 06:08] LABS: HGB 6.6 gm/dL (13.0-17.5)
[2017-01-11] MEDS: INSULIN LISPRO (humaLOG) 300 UNIT/3 ML VIAL SQ SCH ×4 (06:19→12:26)
--- NOTE | 2017-01-11 06:19 | XR ---
EXAMINATION TYPE: XR chest 2V DATE OF EXAM: 01/11/2017 HISTORY: post cardiac surgery. REFERENCE: Previous study dated 01/10/2017. FINDINGS: There has been a midline sternotomy. The heart is enlarged. There is platelike atelectasis in the left midlung. There are small, bilateral effusions. There is underlying COPD. IMPRESSION: NO SIGNIFICANT INTERVAL CHANGE IN THE APPEARANCE OF THE CHEST.
[2017-01-11] MEDS: FERROUS SULFATE 325 MG TAB PO SCH (06:21)
[2017-01-11] MEDS: PANTOPRAZOLE 40 MG TABLET PO SCH (06:21)
--- NOTE | 2017-01-11 07:15 | P.PN ---
Subjective Principal diagnosis: Coronary artery disease. Hypertension. Hyperlipidemia. History of myocardial infarction. History of BPH. History of ulcerative colitis with an ileostomy. Distant history of dialysis for 5 days secondary to elevated potassium. History of tobacco dependence. Family history of myocardial infarction at a young age. COPD. History of gastroparesis. Obesity. POD #6 elective coronary artery bypass grafting 3 vessels, left internal mammary artery to left anterior descending artery, reverse saphenous vein graft to the obtuse marginal artery, reverse saphenous vein graft to the posterior descending artery. Endoscopic vein harvest, bilateral greater saphenous veins. Epi-aortic ultrasound. Intraoperative transesophageal echocardiogram. Closure of sternum using titanium cable system. Postoperative acute blood loss anemia, expected outcome of surgery. Patient currently sitting up in his bed. No acute distress. Denies complaints of pain at this time. Patient's hemoglobin is 6.6 this a.m., no tachycardia or hypotension at this time. Positive occult stool on 01/09/2017, patient reports there is no change in the color of his stool and remains brown in color. Patient reports he ambulated in the hallway yesterday without difficulty 3 times to the nurse's station on 6 E. and back to his room without difficulty. Objective - Vital Signs Vital signs: Vital Signs Temp 98.2 F 01/11/17 04:00 Pulse 82 01/11/17 04:00 Resp 18 01/11/17 04:00 BP 131/54 01/11/17 04:00 Pulse Ox 95 01/11/17 04:00 Intake & Output 01/10/17 01/11/17 01/11/17 18:59 06:59 18:59 Intake Total 860 Output Total 1800 525 Balance -940 -525 Weight 127.6 kg Intake: Oral 860 Output: Urine 1800 525 Other: Voiding Method Toilet Toilet Urinal Urinal # Voids 2 1 # Bowel Movements 1 ABP, PAP, CO, CI - Last Documented Arterial Blood Pressure 136/51 Pulmonary Artery Pressure 28/12 Cardiac Output 8.5 Cardiac Index 3.5 - Constitutional General appearance: Present: cooperative, no acute distress, obese - EENT Eyes: Present: PERRLA, normal appearance ENT: Present: hearing grossly normal - Neck Details: No lymphadenopathy, no JVD. 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 Respirations are symmetrical and nonlabored. His oxygen saturations are 95% on room air. He is achieving 1750 mL to 2000 mL on his incentive spirometry. - Cardiovascular Details: Regular rhythm and rate. S1 and S2 present, negative for S3, gallop or murmur. Remote telemetry showing normal sinus rhythm heart rate 80. Sternum is stable. Heart hugger is in place and the patient is demonstrating appropriate use. +1 edema to his bilateral lower extremities. Knee-high JOSE hose and sequential compression devices in place to his bilateral lower extremities. - Gastrointestinal Gastrointestinal Comment(s): Abdomen is soft, nontender and nondistended. Active bowel sounds to all 4 quadrants. He is tolerating oral intake. Right lower abdominal quadrant ileostomy present and emptied when necessary. Stool brown in color. - Genitourinary Genitourinary Comment(s): Finding clear yellow urine. 300 mL of urine output documented for the last 8 hours. - Integumentary Integumentary Comment(s): Midline sternal incision clean dry and well approximated. Dermabond dressing dry and intact. Bilateral lower extremity EVH sites well approximated, Dermabond dressing clean and dry. No drainage noted. Large ecchymotic area to his right groin and thigh. Soft to palpate. Integumentary: Present: pale - Neurologic Neurologic Comment(s): No focal deficits. Neurologic: Present: CNII-XII intact - Musculoskeletal Musculoskeletal: Present: gait normal, strength equal bilaterally - Psychiatric Psychiatric: Present: A&O x's 3, appropriate affect, intact judgment & insight - Allied health notes Allied health notes reviewed: nursing - Labs CBC & Chem 7: 01/11/17 05:22 01/11/17 05:22 Labs: Abnormal Lab Results - Last 24 Hours (Table) 01/10/17 01/10/17 01/10/17 Range/Units 08:00 11:35 16:53 RBC 2.21 L (4.30-5.90) m/uL Hgb 6.9 L* (13.0-17.5) gm/dL Hct 20.8 L (39.0-53.0) % RDW 15.7 H (11.5-15.5) % Plt Count 148 L (150-450) k/uL Glucose (74-99) mg/dL POC Glucose (mg/dL) 107 H 102 H (75-99) mg/dL Total Protein (6.3-8.2) g/dL Albumin (3.5-5.0) g/dL 01/10/17 01/11/17 01/11/17 Range/Units 21:26 01:53 05:22 RBC 2.14 L (4.30-5.90) m/uL Hgb 6.6 L* (13.0-17.5) gm/dL Hct 20.2 L (39.0-53.0) % RDW 16.8 H (11.5-15.5) % Plt Count (150-450) k/uL Glucose (74-99) mg/dL POC Glucose (mg/dL) 140 H 104 H (75-99) mg/dL Total Protein (6.3-8.2) g/dL Albumin (3.5-5.0) g/dL 01/11/17 01/11/17 Range/Units 05:22 06:04 RBC (4.30-5.90) m/uL Hgb (13.0-17.5) gm/dL Hct (39.0-53.0) % RDW (11.5-15.5) % Plt Count (150-450) k/uL Glucose 105 H (74-99) mg/dL POC Glucose (mg/dL) 115 H (75-99) mg/dL Total Protein 5.4 L (6.3-8.2) g/dL Albumin 3.0 L (3.5-5.0) g/dL - Imaging and Cardiology Chest x-ray: report reviewed, image reviewed Assessment and Plan (1) Postoperative anemia due to acute blood loss Status: Acute (2) BPH (benign prostatic hyperplasia) Status: Acute (3) COPD (chronic obstructive pulmonary disease) Status: Acute (4) Coronary artery disease Status: Acute (5) Family history of early CAD Status: Acute (6) Gastroparesis Status: Acute (7) Hyperlipidemia Status: Acute (8) Hypertension Status: Acute (9) Previous myocardial infarction older than 8 weeks Status: Acute (10) Status post ileostomy Status: Acute (11) Tobacco dependence in remission Status: Acute (12) Ulcerative colitis Status: Acute Plan: 1. Continue aspirin, statin, Plavix, heparin subcu, beta ronni. We will maximize her beta ronni therapy as tolerated.. 2. Encourage incentive spirometry use every hour while awake. 3. GI/DVT prophylaxis. 4. Continue Iron and vitamin C. 5. Will monitor daily labs, chest x-rays. Will hold off on a transfusion for now as patient is asymptomatic, will recheck hemoglobin in a couple of days at home. 6. Insulin management per internal medicine service. 7. Increase activity as tolerated. Physical therapy following. 8. Discharge planning in progress. Anticipate discharge within the next 24 hours. Time with Patient: Greater than 30
--- NOTE | 2017-01-11 08:22 | P.DS ---
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 Consult: post cardiac surgery Do you want consulting provider notified?: Yes Primary care physician: Mitchell Maher Kut - Discharge Diagnosis(es) (1) Postoperative anemia due to acute blood loss Current Visit: Yes Status: Acute (2) BPH (benign prostatic hyperplasia) Current Visit: Yes Status: Acute (3) COPD (chronic obstructive pulmonary disease) Current Visit: Yes Status: Acute (4) Coronary artery disease Current Visit: Yes Status: Acute (5) Family history of early CAD Current Visit: Yes Status: Acute (6) Gastroparesis Current Visit: Yes Status: Acute (7) Hyperlipidemia Current Visit: Yes Status: Acute (8) Hypertension Current Visit: Yes Status: Acute (9) Previous myocardial infarction older than 8 weeks Current Visit: Yes Status: Acute (10) Status post ileostomy Current Visit: Yes Status: Acute (11) Tobacco dependence in remission Current Visit: Yes Status: Acute (12) Ulcerative colitis Current Visit: Yes Status: Acute Hospital Course: FINAL DIAGNOSIS: 1. Symptomatic multivessel coronary artery disease 2. Hypertension 3. Hyperlipidemia 4. History of myocardial infarction 5. History of benign prostatic hyperplasia 6. History of ulcerative colitis with an ileostomy 7. Remote history of dialysis for 5 days secondary to elevated potassium 8. Remote history of tobacco dependence, in remission 9. Family history of myocardial infarction at a young age 10. Chronic obstructive pulmonary disease 11. History of gastroparesis 12. Obesity 13. Postoperative acute blood loss anemia, expected outcome of surgery PRINCIPAL PROCEDURE: 1. Coronary artery bypass grafting 3 vessels, left internal mammary artery to the left anterior descending coronary artery, a reverse greater saphenous vein graft to his obtuse marginal coronary artery and a reverse greater saphenous vein graft to his posterior descending coronary artery. 2. Endoscopic vein harvest, bilateral greater saphenous veins. 3. Intraoperative epi-aortic ultrasound. 4. Intraoperative transesophageal echocardiogram performed by anesthesia. 5. Closure of the sternum using [place] cable system. HISTORY OF PRESENT ILLNESS: This is a 61-year-old gentleman who is followed by Dr. Mitchell perez on an outpatient basis. Recently, the patient was having complaints of intermittent episodes of chest discomfort with exertion. Subsequently on 10/10/2016 the patient underwent a Lexiscan stress test which was abnormal showing inferior ischemia. The patient was seen by Dr. Hdz from cardiology associates and the patient was recommended to undergo a elective cardiac catheterization. On 11/18/2016 the patient underwent elective heart catheterization which demonstrated a 60% stenosis to his left main coronary artery, a totally occluded right coronary artery, a totally occluded circumflex coronary artery, a 30% stenosis to his proximal left anterior descending coronary artery and a 20% stenosis to his mid left anterior descending coronary artery. Also during heart catheterization a left ventriculogram was completed which showed him to have an ejection fraction of 50%. The patient was seen by Dr. Vicki Xiong from cardiothoracic surgery due to the patient's symptoms, positive stress test and heart catheterization results. The patient was offered elective coronary artery bypass grafting surgery at that time. HOSPITAL COURSE: The patient was admitted to the hospital and after obtaining consent he was taken to the operating room where Dr. Neal Bailey performed an elective coronary artery bypass grafting surgery 3 vessels, with his left internal mammary artery placed to the left anterior descending coronary artery, a reverse greater saphenous vein graft to his obtuse marginal coronary artery and a reverse greater saphenous vein graft to his posterior descending coronary artery. He also underwent endoscopic vein harvest of his bilateral greater saphenous veins, and intraoperative epi-aortic ultrasound, and intraoperative transesophageal echocardiogram performed by anesthesia. He was subsequently transferred to the cardiovascular intensive care unit where he was recovered, monitored hemodynamically, and where he progressed cardiac rehabilitation phase 1. Patient was subsequently extubated, his invasive lines were discontinued and he was transferred to [address] [place] [address] for further monitoring and rehabilitation. Patient did have some postoperative acute blood loss anemia which was treated accordingly. Discharge instructions have been reviewed with the patient and he will be discharged home today followed by [facility]. A project red this patient has been placed on the patient and the importance of wearing this patient in for 30 days postoperatively has been discussed with the patient. COMPLICATIONS: There were no postoperative complications. CONSULTATIONS: 1. Dr. Hdz for cardiology management 2. Dr. Acevedo for medical management 3. Dr. Yadav for pulmonary and ventilator management DISCHARGE INSTRUCTIONS: 1. No driving for 4 weeks, or until physician gives their ok. 2. The patient should sleep in their own bed, no medical bed needed. 3. Stairs are not an issue. If the bedroom is upstairs, it is advised that the patient go up at night and down in the morning for the first week. Go slowly, using handrail and take 1 step at a time. 4. JOSE hose are to be worn for 30 days or until physician discontinues. 5. Heart hugger is to be worn 100% of the time until physician discontinues.( except when showering) 6. No lifting, pushing, or pulling more than 10 pounds for 12 weeks. The physician will advise of any restriction changes. 7. The patient is expected to continue the prescribed walking program. 8. Continue pain control per as needed orders. 9. Continue with incentive spirometry and splinting/heart hugger until otherwise directed by the physician. 10. Must shower daily using liquid antibacterial soap and a separate white washcloth for each individual incision. 11. Routine sternal incision care, no ointments, lotions or powders on the incisions. 12. Please notify surgeon/nurse practitioner for temperature greater than 101F or purulent drainage from incisions 13. Prescriptions for first 30 days given per cardiac surgery service. After 30 days, all prescription refills obtained through cardiology/primary care physician. 14. A red arm and has been placed on this patient it should be worn for 30 days post surgery and will be removed by the cardiothoracic surgeons. If an ER visit is necessary, please make sure the number on the red arm band is called. HOME HEALTH SERVICES TO PROVIDE: RN SKILLED HOME CARE SERVICES FOR POST-OP SURGICAL PATIENTS WITH THE FOLLOWING: Coronary Artery Bypass Surgery (CABG), Mitral Valve Replacement/ Repair ( MVR), Aortic Valve Replacement/Repair (AVR) RN TO CONTINUE EDUCATION FROM ``ROAD TO A HEALTH HEART PATIENT EDUCATION MANUAL" (GIVEN TO PATIENT IN THE HOSPITAL) MEDICATION RECONCILIATION WITH EDUCATION NEEDED ON FIRST HOME VISIT EMPHASIZE IMPORTANCE OF WEARING BREAST SUPPORT/HEART HUGGER ENCOURAGE USE OF INCENTIVE SPIROMETER 10 X EVERY HOUR WHILE AWAKE ENCOURAGE UTILIZATION OF LOWER EXTREMITY COMPRESSION STOCKINGS/JOSE HOSE and ELEVATE LEGS ABOVE LEVEL OF HEART WHILE AT REST. ENCOURAGE AMBULATION 3-5x/day INCREASING TOLERATES, WHILE AVOID EXTREMES IN TEMPERATURE FREQUENCY: RN TO OPEN THE PATIENT WITHIN 24 HOURS OF DISCHARGE FROM THE HOSPITAL WITH TELEHEALTH INSTALLED AT [facility] [place], [place], RN TO VISIT 2-3 X A WEEK FOR 4 WEEKS ESTABLISHED BY PATIENT NEEDS. REMOVAL OF SUTURES: NURSING SERVICES TO REMOVE SUTURES TWO WEEKS POST SURGICAL DATE Thursday01/19/2017 any questions regarding suture removal please call the office at [phone]. LABORATORY: CBC, CMP TO BE DRAWN ON THE THIRD DAY HOME,THURSDAY, 01/13/2017 (RUN STAT ) FAX RESULTS TO [phone]. TELEHEALTH PARAMETERS: WEIGHT: NOTIFY MD OF WEIGHT GAIN OF 2 LBS IN 24 HOURS OR 5 LBS IN ONE WEEK HR: NOTIFY MD OF HR <55 BPM OR HR>100 BPM BP: NOTIFY MD IF BP <90/55 OR BP>140/100 O2 SAT: NOTIFY MD IF PO2<93% ON ROOM AIR SEND TELEHEALTH REPORT TO MOTOR TRANSPORT INSPECTOR AND CARDIOVASCULAR SURGEON THE FIRST WEEK OF CARE AND THEN BI-WEEKLY. PLEASE ADDITIONALLY COMMUNICATE ANY ABNORMALS AND NEW FINDINGS TO THE SURGEONS OFFICE. Plan - Discharge Summary New Discharge Prescriptions: New Ascorbic Acid [Vitamin C] 500 mg PO BID #60 tab Aspirin 325 mg PO DAILY #30 tab Atorvastatin [Lipitor] 40 mg PO DAILY #30 tab Clopidogrel [Plavix] 75 mg PO DAILY #30 tab Ferrous Sulfate [Iron (65 MG Elemental)] 325 mg PO BID-W/MEALS #30 tab Folic Acid 0.5 mg PO DAILY@1200 #30 tab HYDROcodone/APAP 7.5-325MG [[place] 7.5-325] 2 each PO Q4H PRN #30 tab PRN Reason: Pain - Moderate Losartan [Cozaar] 25 mg PO DAILY #30 tab Tamsulosin [Flomax] 0.4 mg PO PC-SUPPER #30 cap Continue Metoprolol Tartrate [Lopressor] 25 mg PO BID Montelukast [Singulair] 10 mg PO HS Fluticasone Nasal [place] [Flonase Nasal [place]] 2 spray EA NOSTRIL DAILY Finasteride [Proscar] 5 mg PO DAILY Omeprazole [PriLOSEC] 20 mg PO DAILY Cholecalciferol (Vitamin D3) [Vitamin D3] 2,000 unit PO DAILY Discontinued Multivit-Min/FA/Lycopen/Lutein [Centrum Silver Men Tablet] 1 tab PO DAILY Aspirin 81 mg PO DAILY Metoclopramide HCl [Reglan] 10 mg PO BID Losartan Potassium 100 mg PO DAILY Hydrochlorothiazide 25 mg PO DAILY Magnesium Oxide [Mag-Ox] 400 mg PO DAILY Mupirocin 2% Nasal Oint [Bactroban 2% Nasal Oint] 1 applic NASAL BID Atorvastatin [Lipitor] 80 mg PO HS Discharge Medication List Cholecalciferol (Vitamin D3) [Vitamin D3] 2,000 unit PO DAILY 11/11/16 [History] Finasteride [Proscar] 5 mg PO DAILY 11/11/16 [History] Fluticasone Nasal [place] [Flonase Nasal [place]] 2 spray EA NOSTRIL DAILY 11/11/16 [History] Metoprolol Tartrate [Lopressor] 25 mg PO BID 11/11/16 [History] Montelukast [Singulair] 10 mg PO HS 11/11/16 [History] Omeprazole [PriLOSEC] 20 mg PO DAILY 11/11/16 [History] Ascorbic Acid [Vitamin C] 500 mg PO BID #60 tab 01/11/17 [Rx] Aspirin 325 mg PO DAILY #30 tab 01/11/17 [Rx] Atorvastatin [Lipitor] 40 mg PO DAILY #30 tab 01/11/17 [Rx] Clopidogrel [Plavix] 75 mg PO DAILY #30 tab 01/11/17 [Rx] Ferrous Sulfate [Iron (65 MG Elemental)] 325 mg PO BID-W/MEALS #30 tab 01/11/17 [Rx] Folic Acid 0.5 mg PO DAILY@1200 #30 tab 01/11/17 [Rx] HYDROcodone/APAP 7.5-325MG [[place] 7.5-325] 2 each PO Q4H PRN #30 tab 01/11/17 [ Rx] Losartan [Cozaar] 25 mg PO DAILY #30 tab 01/11/17 [Rx] Tamsulosin [Flomax] 0.4 mg PO PC-SUPPER #30 cap 01/11/17 [Rx] Follow up Appointment(s)/Referral(s): Claudia Acuna NPC [Nurse Practitioner] - 01/15/17 1:30 pm Janak Hdz MD [STAFF PHYSICIAN] - 01/27/17 1:15 pm Mahin Yadav DO [Doctor of Osteopathic Medicine] - 01/23/17 1:00 pm [facility], [NON-STAFF] - As Needed Neal Bailey MD [STAFF PHYSICIAN] - 01/30/17 11:00 am Mitchell Webster MD [Primary Care Provider] - 01/19/17 3:30 pm Ambulatory/Diagnostic Orders: Complete Blood Count w/diff [LAB.AMB] Time Frame: 3 Days, Location: Determined By Patient Comprehensive Metabolic Panel [LAB.AMB] Time Frame: 3 Days, Location: Determined By Patient
[2017-01-11] MEDS: FINASTERIDE 5 MG TAB PO SCH (08:31)
[2017-01-11] MEDS: ASCORBIC ACID 500 MG TAB PO SCH (08:31)
[2017-01-11] MEDS: INSULIN DETEMIR 100 UNIT/ML 10 ML VIAL SQ SCH (08:31)
[2017-01-11] MEDS: CLOPIDOGREL 75 MG TAB PO SCH (08:31)
[2017-01-11] MEDS: ASPIRIN 325 MG TAB PO SCH (08:32)
[2017-01-11] MEDS: METOPROLOL TARTRATE 25 MG TAB PO SCH (08:32)
[2017-01-11] MEDS: ATORVASTATIN 40 MG TAB PO SCH (08:32)
[2017-01-11] MEDS: HEPARIN SODIUM,PORCINE 5,000 UNIT/ML 1 ML VIAL SQ SCH (08:37)
[2017-01-11 10:26] VITALS: BP 114/62; PULSE 97; TEMP 96.9
--- NOTE | 2017-01-11 10:26 | P.PN ---
Progress Note - Text This is a 61-year-old gentleman with history of hypertension, hyperlipidemia, colitis, who underwent coronary artery bypass grafting surgery, patient had a GARCIA to the LAD, saphenous vein graft to the obtuse marginal and posterior descending artery. Postoperatively patient was having issues with anemia, he was transfused , hemoglobin today is 6.2. The patient continues to be asymptomatic and denies having any chest pain or shortness of breath. He is on aspirin, statin, and beta ronni. The patient is going to be discharged home and I will follow-up with him in the office as an outpatient
--- NOTE | 2017-01-11 10:48 | P.PN ---
Subjective Progress note dated 01/08/2017 This is a 61-year-old male who is seen today in the intensive care unit. He has a history of coronary artery disease and is status post three-vessel bypass grafting, postop day #3. He had postsurgical ventilator dependence which is resolved anemia hypertension hyperlipidemia previous myocardial infarction BPH and also of colitis, status post ileostomy. The patient's doing reasonably well. He is receiving O2 at 4 L. No IV fluids. He'll be able to move out of the ICU today. Chest x-ray shows postsurgical changes. He's got some mild basilar atelectasis and some small pleural effusions. Progress note dated 01/10/2017 61-year-old male postop day #5 status post three-vessel bypass grafting. He's got postsurgical ventilator dependence which is covered as well as a history of anemia hypertension hyperlipidemia previous myocardial infarction BPH colitis and previous ileostomy. He apparently going to be discharged home probably tomorrow. No pain no shortness of breath. Not producing any phlegm. No fever no chills. No nausea vomiting or diarrhea. He has been weaned off of oxygen therapy. Progress note dated 01/11/2017 61-year-old male postop day #6 status post three-vessel bypass grafting. Possible discharge today. Postsurgical ventilator dependence which is recovered as well as a history of anemia hypertension hyperlipidemia previous myocardial infarction BPH colitis and previous ileostomy. The patient's respiratory status and hemodynamics status is stable. He is doing well with deep breathing coughing clearing secretions. Also doing well with his incentive spirometer. No nausea vomiting or diarrhea. No chest pain or chest discomfort. Objective - Vital Signs Vital signs: Vital Signs Temp 96.9 F L 01/11/17 08:00 Pulse 97 01/11/17 08:00 Resp 18 01/11/17 08:00 BP 114/62 01/11/17 08:00 Pulse Ox 95 01/11/17 08:30 Intake & Output 01/10/17 01/11/17 01/11/17 18:59 06:59 18:59 Intake Total 860 420 Output Total 1800 525 Balance -940 -525 420 Weight 127.6 kg Intake: Oral 860 420 Output: Urine 1800 525 Other: Voiding Method Toilet Toilet Toilet Urinal Urinal Urinal # Voids 2 1 # Bowel Movements 1 ABP, PAP, CO, CI - Last Documented Arterial Blood Pressure 136/51 Pulmonary Artery Pressure 28/12 Cardiac Output 8.5 Cardiac Index 3.5 - Exam No acute distress, oriented 3. HEENT examination is grossly unremarkable. Mucous membranes are moist. No oral lesions. Neck supple. Full range of motion. No adenopathy or thyromegaly. Neck veins are flat. Cardiovascular examination reveals regular rhythm rate. S1-S2 normal. No S3- S4 or murmur. Lungs reveal mostly clear breath sounds. A few scattered rhonchi. No wheezes or crackles. Abdomen soft bowel sounds are heard. No masses or tenderness. Extremities are intact. No cyanosis clubbing or edema. Skin without rash. Neurologic examination is nonfocal. - Labs CBC & Chem 7: 01/11/17 05:22 01/11/17 05:22 Labs: Abnormal Lab Results - Last 24 Hours (Table) 01/10/17 01/10/17 01/10/17 Range/Units 11:35 16:53 21:26 RBC (4.30-5.90) m/uL Hgb (13.0-17.5) gm/dL Hct (39.0-53.0) % RDW (11.5-15.5) % Glucose (74-99) mg/dL POC Glucose (mg/dL) 107 H 102 H 140 H (75-99) mg/dL Total Protein (6.3-8.2) g/dL Albumin (3.5-5.0) g/dL 01/11/17 01/11/17 01/11/17 Range/Units 01:53 05:22 05:22 RBC 2.14 L (4.30-5.90) m/uL Hgb 6.6 L* (13.0-17.5) gm/dL Hct 20.2 L (39.0-53.0) % RDW 16.8 H (11.5-15.5) % Glucose 105 H (74-99) mg/dL POC Glucose (mg/dL) 104 H (75-99) mg/dL Total Protein 5.4 L (6.3-8.2) g/dL Albumin 3.0 L (3.5-5.0) g/dL 01/11/17 Range/Units 06:04 RBC (4.30-5.90) m/uL Hgb (13.0-17.5) gm/dL Hct (39.0-53.0) % RDW (11.5-15.5) % Glucose (74-99) mg/dL POC Glucose (mg/dL) 115 H (75-99) mg/dL Total Protein (6.3-8.2) g/dL Albumin (3.5-5.0) g/dL Assessment and Plan (1) Anemia Status: Acute (2) Ventilator dependence Status: Acute (3) BPH (benign prostatic hyperplasia) Status: Acute (4) Coronary artery disease Status: Acute (5) Family history of early CAD Status: Acute (6) Hyperlipidemia Status: Acute (7) Hypertension Status: Acute (8) Previous myocardial infarction older than 8 weeks Status: Acute (9) Status post ileostomy Status: Acute (10) Tobacco dependence in remission Status: Acute (11) Ulcerative colitis Status: Acute Plan: Plan dated 01/08/2017 The patient's doing well. We continue to encourage deep breathing coughing clearing of secretions. The patient should continue using his incentive spirometer every hour while awake. The patient is likely to be moved out of the ICU today. The patient not receiving any IV fluids. O2 his been weaned down to 4 L nasal cannula. Prognosis remains guarded Plan dated 01/10/2017 The patient is doing well. No additional recommendations are made. We'll continue to follow as needed. Respiratory status is stable. Should be discharged home in the next 24-48 hours. Plan dated 01/11/2017 The patient is doing well. We'll continue to follow. No additional recommendations are made. The patient is doing well with his incentive spirometer. Also doing well with deep breathing coughing clearing secretions. Has been weaned off of oxygen. Updrafts can be discontinued. Time with Patient: Less than 30
--- NOTE | 2017-01-11 11:36 | PN ---
PROGRESS NOTE INTERVAL HISTORY: Patient continued to be hemodynamically stable, ambulating in the [place] on his own. Denied chest pain, nausea, vomiting, abdominal pain, dizziness, lightheadedness, or blurry vision. PHYSICAL EXAMINATION: Vital signs 98.2, 82, 18, 131/54, and saturation 95% on room air. Lungs diminished bilaterally. Heart: S1, S2. ABDOMEN: Soft, nontender. Bowel sounds are positive in all four quadrants. Psych: Alert oriented x3. Skin no new rash. IMAGING AND LABS: Hemoglobin is still low at 6.6. Chem 7 showed normal finding. Protein total 5.4. ASSESSMENT AND PLAN: 1. Status post coronary artery bypass grafting. Will continue cardioprotective medication. We will have patient follow up outpatient with his primary care physician and cardiothoracic surgeon. 2. Anemia. The patient with hemoglobin 6.6. Recommend transfusing 1 unit of packed red blood cells prior to discharge to be determined by primary team. 3. Hyperlipidemia. Will continue statin. 4. Debility and weakness. We will have PT, OT, outpatient. 5. Discharge planning per primary team recommendation. MMODL / IJN: [id number] /
[2017-01-11 11:38] LABS: Glucose,Whole Blood 103 mg/dL (75-99)
[2017-01-11] MEDS: MULTIVITAMINS, THERA 1 EACH TAB PO SCH (12:23)
[2017-01-11] MEDS: CHOLECALCIFEROL 1,000 UNIT TAB PO SCH (12:24)
[2017-01-11] MEDS: FOLIC ACID 1 MG TAB PO SCH (12:24)
[2017-01-12 14:03] LABS: ABG Base Excess 1.6 mmol/L; ABG HCO3 26 mmol/L (21-25); ABG Hematocrit 35 % (34.0-46.0); ABG Oxygen Saturation 98.1 % (94-97); ABG PCO2 39 mmHg (35-45); ABG PH 7.43 (7.35-7.45); ABG PO2 103 mmHg (83-108); ABG TCO2 27 mmol/L (19-24)
[2017-01-12 14:04] LABS: ABG HCO3 27 mmol/L (21-25); ABG Hematocrit 35 % (34.0-46.0); ABG Oxygen Saturation 96.2 % (94-97); ABG PCO2 56 mmHg (35-45); ABG PO2 94 mmHg (83-108); ABG TCO2 28 mmol/L (19-24)
[2017-01-12 14:05] LABS: ABG Base Excess -1.2 mmol/L; ABG HCO3 25 mmol/L (21-25); ABG Hematocrit 28 % (34.0-46.0); ABG Oxygen Saturation 99.9 % (94-97); ABG PCO2 54 mmHg (35-45); ABG PH 7.29 (7.35-7.45); ABG PO2 365 mmHg (83-108); ABG TCO2 27 mmol/L (19-24)
[2017-01-12 14:15] LABS: ABG Base Excess -1.9 mmol/L; ABG HCO3 24 mmol/L (21-25); ABG Hematocrit 28 % (34.0-46.0); ABG Oxygen Saturation 99.9 % (94-97); ABG PCO2 46 mmHg (35-45); ABG PH 7.33 (7.35-7.45); ABG PO2 331 mmHg (83-108); ABG TCO2 25 mmol/L (19-24)
[2017-01-12 14:16] LABS: ABG Base Excess -2.4 mmol/L; ABG HCO3 24 mmol/L (21-25); ABG Hematocrit 32 % (34.0-46.0); ABG Oxygen Saturation 99.9 % (94-97); ABG PCO2 49 mmHg (35-45); ABG PH 7.31 (7.35-7.45); ABG PO2 384 mmHg (83-108); ABG TCO2 25 mmol/L (19-24)
[2017-01-12 14:17] LABS: ABG Base Excess -0.5 mmol/L; ABG HCO3 24 mmol/L (21-25); ABG Hematocrit 25 % (34.0-46.0); ABG Oxygen Saturation 99.9 % (94-97); ABG PCO2 42 mmHg (35-45); ABG PH 7.37 (7.35-7.45); ABG PO2 346 mmHg (83-108); ABG TCO2 25 mmol/L (19-24)
[2017-01-12 14:18] LABS: ABG HCO3 25 mmol/L (21-25); ABG Hematocrit 29 % (34.0-46.0); ABG Oxygen Saturation 97.8 % (94-97); ABG PCO2 48 mmHg (35-45); ABG PH 7.34 (7.35-7.45); ABG PO2 109 mmHg (83-108); ABG TCO2 27 mmol/L (19-24)
== END 2017-01-11 14:57 | disposition home health service (06) | DRG 236 ==
LOC: 2ORMAIN 05:48 → 6ICU 14:13 → 6SEL 01-08 10:49
PROVIDERS: ADMIT Surgery; ATTEND Surgery
PROC: 021109W Bypass Coronary Artery, Two Arteries from Aorta with Autologous Venous Tissue, Open Approach (ICD-10-PCS; 2017-01-05)
PROC: 06BQ4ZZ Excision of Left Saphenous Vein, Percutaneous Endoscopic Approach (ICD-10-PCS; 2017-01-05)
PROC: 06BP4ZZ Excision of Right Saphenous Vein, Percutaneous Endoscopic Approach (ICD-10-PCS; 2017-01-05)
PROC: 5A1221Z Performance of Cardiac Output, Continuous (ICD-10-PCS; 2017-01-05)
PROC: B246ZZ4 Ultrasonography of Right and Left Heart, Transesophageal (ICD-10-PCS; 2017-01-05)
PROC: 02100Z9 Bypass Coronary Artery, One Artery from Left Internal Mammary, Open Approach (ICD-10-PCS; principal; 2017-01-05 08:00)
PROC: 30230N1 Transfusion of Nonautologous Red Blood Cells into Peripheral Vein, Open Approach (ICD-10-PCS; 2017-01-07)
DX: I25.118 Atherosclerotic heart disease of native coronary artery with other forms of angina pectoris (principal); E66.01 Morbid (severe) obesity due to excess calories; I25.82 Chronic total occlusion of coronary artery; I95.9 Hypotension, unspecified; K51.90 Ulcerative colitis, unspecified, without complications; D62 Acute posthemorrhagic anemia; J98.11 Atelectasis; K31.84 Gastroparesis; J44.9 Chronic obstructive pulmonary disease, unspecified; I10 Essential (primary) hypertension; E78.5 Hyperlipidemia, unspecified; R73.9 Hyperglycemia, unspecified; N40.0 Benign prostatic hyperplasia without lower urinary tract symptoms; G47.33 Obstructive sleep apnea (adult) (pediatric); K21.9 Gastro-esophageal reflux disease without esophagitis; I25.2 Old myocardial infarction; Z93.2 Ileostomy status; Z79.82 Long term (current) use of aspirin; Z79.899 Other long term (current) drug therapy; Z90.49 Acquired absence of other specified parts of digestive tract; Z87.891 Personal history of nicotine dependence; Z87.442 Personal history of urinary calculi; Z82.49 Family history of ischemic heart disease and other diseases of the circulatory system
CPT/HCPCS: 36620; 71010; 71020; 80053; 82272; 82330; 82805; 83735; 84100; 85025; 85027; 85520; 85610; 85730; 86850; 86891; 86900; 86901; 86920; 93005; 94002; 94003; 94640; 94760

== ENCOUNTER → 2020-02-28 | Outpatient (CLI) | payer OTHER ==
--- NOTE | 2020-02-28 15:29 | MR ---
EXAMINATION TYPE: MR shoulder RT wo con DATE OF EXAM: 02/28/2020 COMPARISON: Plain film 01/30/2020 HISTORY: Rt shoulder pain x 5 mos, no trauma TECHNIQUE: Multiplanar, multisequence imaging of the right shoulder is performed without contrast. FINDINGS: Rotator Cuff: Complete rotator cuff tear is present, supraspinatus and infraspinatus tendons are retr acted to the level of the acromion. Acromioclavicular Joint: Hypertrophic changes present. Glenohumeral Joint: Shoulder is high riding. Bony glenoid shows probable reactive marrow signal evans e, possible geode formation at the superior extent Labrum: There may be some labral fraying present at the superior margin Biceps Tendon: The long head of biceps is in normal location within bicipital groove however centrall y the tendon appears somewhat perched, biceps anchor attachment is not well seen. Bone marrow signal: Pseudocysts are present within the humeral head Other: Fluid signal present at the musculotendinous junction of the subscapularis, there is a small j oint effusion, fluid signal present in the subacromial subdeltoid bursa IMPRESSION: Rotator cuff tear with retraction. Additional findings above.
== END | disposition home or self-care (01) ==
LOC: RADMRIMAIN 09:56
PROVIDERS: ATTEND Orthopaedic Surgery
DX: M75.121 Complete rotator cuff tear or rupture of right shoulder, not specified as traumatic (principal); M89.311 Hypertrophy of bone, right shoulder; M25.411 Effusion, right shoulder; R93.89 Abnormal findings on diagnostic imaging of other specified body structures